=== PATIENT | female | born 1955 | race Two or more races ===

== ENCOUNTER 2021-12-21 08:48 | Inpatient (IN) | payer MEDICARE, OTHER ==
[~2021-12-21] VITALS: Ht 162.6 cm; Wt 72.1 kg
--- NOTE | 2021-12-21 09:00 | NUR ---
RECIVED PT 66 YRS FEMALE FROM SNF C/O PT PULL OUT GT NO REPLACEMENT PT awake fallow command respiration spont and easy gt heling no opening to reinserted abdomin soft none tende to touch
--- NOTE | 2021-12-21 09:10 | NUR ---
SEEN BY DR. NUÑEZ
--- NOTE | 2021-12-21 09:15 | NUR ---
INsertyed angelocathter fr # 20 on [address] ac blood drow and sent to lab
[2021-12-21] MEDS ORDERED: CHLO473M5 MM (09:16)
[2021-12-21] MEDS ORDERED: LEVE500T9 GT (09:16)
[2021-12-21] MEDS ORDERED: ATOR20TA GT (09:16)
[2021-12-21] MEDS ORDERED: ASPI-1169 GT (09:16)
[2021-12-21] MEDS ORDERED: LISI20TA30 GT (09:16)
[2021-12-21] MEDS ORDERED: INSU100V27 SQ (09:16)
[2021-12-21] MEDS ORDERED: POLY17PO4 GT (09:16)
[2021-12-21] MEDS ORDERED: MULT-447 GT (09:16)
[2021-12-21] MEDS ORDERED: ACET-868 GT (09:16)
[2021-12-21] MEDS ORDERED: ENOX40DI SQ (09:16)
[2021-12-21] MEDS ORDERED: GLUC1KIT IM (09:16)
[2021-12-21] MEDS ORDERED: MINE3.5O4 EACHEYE (09:16)
[2021-12-21] MEDS ORDERED: [UNRECOGNIZED DRUG - CODE] GT (09:16)
--- NOTE | 2021-12-21 09:30 | NUR ---
EPIC PAGED, AWAITING HOSPITALIST CALL BACK
--- NOTE | 2021-12-21 09:31 | NUR ---
COVID SWAB OBTAINED AND SENT TO LAB
[2021-12-21 09:38] LABS: BASOPHILS # (AUTO) 0.1 K/uL (0.0-0.2); BASOPHILS % (AUTO) 0.6 % (0.0-2.0); EOSINOPHILS % (AUTO) 1.7 % (0.0-6.0); HEMATOCRIT 31 % (33-45); HEMOGLOBIN 10.7 g/dL (11.5-14.8); LYMPHOCYTES # (AUTO) 2.3 K/uL (0.8-4.8); LYMPHOCYTES % (AUTO) 18.5 % (20.0-44.0); MEAN CORPUSCULAR HGB CONC 35 g/dl (31.0-36.0); MEAN CORPUSCULAR VOLUME 88 fL (82-100); MONOCYTES # (AUTO) 0.7 K/uL (0.1-1.30); MONOCYTES % (AUTO) 5.8 % (2.0-12.0); NEUTROPHILS # (AUTO) 9.3 K/uL (1.8-8.9); NEUTROPHILS % (AUTO) 73.4 % (43.0-81.0); PLATELET COUNT (AUTO) 458 K/uL (150-450); RED BLOOD CELL COUNT(AUTO) 3.52 MIL/uL (4.0-5.2); WHITE BLOOD COUNT (AUTO) 12.7 K/uL (4.3-11.0)
[2021-12-21 09:51] LABS: ALBUMIN 2.6 g/dL (3.4-5.0); BILIRUBIN,DIRECT 0.1 mg/dL (0.0-0.2); BILIRUBIN,TOTAL 0.2 mg/dL (0.2-1.0); CALCIUM, SERUM 10.2 mg/dL (8.5-10.1); CREATININE 0.9 mg/dL (0.6-1.3); POTASSIUM 4.7 mmol/L (3.5-5.1); TOTAL PROTEIN, SERUM 8.2 g/dL (6.4-8.2)
[2021-12-21] MEDS ORDERED: IV NS 0.9% 1,000 ML BAG IV ONE (10:30)
--- NOTE | 2021-12-21 10:49 | NUR ---
MRSA SWAP SENT TO LAB
[2021-12-21] MEDS ORDERED: PIPERACILLIN /TAZOBACTAM 3.375 G VIAL IV ONE (10:56)
[2021-12-21] MEDS ORDERED: PIPERACILLIN /TAZOBACTAM 3.375 G in IV D5W 50 ML IV ONE (11:00)
--- NOTE | 2021-12-21 11:22 | NUR ---
MS 310-2
--- NOTE | 2021-12-21 11:44 | NUR ---
Report given to MENDY Gore for ZI.
[2021-12-21] MEDS ORDERED: Z GUARD REMEDY 4 OZ OINT TP PRN (12:30)
[2021-12-21] MEDS ORDERED: ONDANSETRON HCL/PF 4 MG/2 ML VIAL IVP PRN (12:30)
[2021-12-21] MEDS ORDERED: MAGNESIUM HYDROXIDE 30 ML UDC PO PRN (12:30)
[2021-12-21] MEDS ORDERED: ACETAMINOPHEN 325 MG TABLET PO PRN (12:30)
[2021-12-21] MEDS ORDERED: MAG HYDROX/AL HYDROX/SIMETH 30 ML UDC PO PRN (12:30)
--- NOTE | 2021-12-21 12:50 | NUR ---
RN Receiving report. PT AOx3, able to express her own concerns. Patient on room air, no signs of distress, states she is comfortable. Patient able to use call light. Vitals signs stable. All safety precautions taken, call light and table within reach and bed at lowest position. Will continue to monitor and administer medications throughout shift.
[2021-12-21 16:00] VITALS: BP 142/87
[2021-12-21] MEDS: IV D5/0.45 NACL 1,000 ML IV PRN (17:40)
--- NOTE | 2021-12-21 19:24 | NUR ---
RN Closing Notes Pt confused, but able to communicate basic needs. Patient remained safe throughout shift, call light and table within reach. Bed at lowest position. Administered hydration as prescribed, IV inserted on right arm, 20g, no signs of infiltration, no pain reported. Patient had a bowel movement during sift. Patient made aware of need to remain NPO for Gtube placement. No incidents to report, will endorse to next nurse.
--- NOTE | 2021-12-21 19:35 | NUR ---
MS RN OPENING NOTE PATIENT IN BED, ALERT/ORIENTED X 1. PT STABLE ON RA, NO S/S OF DISTRESS OR SOB NOTED, BREATHING EVEN AND UNLABORED. PATIENT NPO. RIGHT ARM #20G INTACT AND INFUSING D5NS @ 75 ML/HR. SAFETY MEASURES IN PLACE: CALL LIGHT WITHIN REACH, SIDE RAILS UP X 3, BED LOCKED IN LOWEST POSITION, BED ALARM ON. WILL CONTINUE TO MONITOR PATIENT
[2021-12-21 20:00] VITALS: BP 152/101
[2021-12-21 21:30] VITALS: BP 146/95
--- NOTE | 2021-12-21 23:14 | NUR ---
MS RN NOTE PATIENT NOTED WITH DRY, CHAPPED, AND BLEEDING LIPS, PATIENT POSSIBLY BIT LIP. WOUND PHOTO TAKEN AND PLACED IN CHART
[2021-12-22 06:37] LABS: CALCIUM, SERUM 9.8 mg/dL (8.5-10.1); CREATININE 0.8 mg/dL (0.6-1.3); MAGNESIUM 1.8 mg/dL (1.8-2.4); PHOSPHORUS 3.5 mg/dL (2.5-4.9)
[2021-12-22] MEDS: BLOOD SUGAR DIAGNOSTIC 1 EACH STRIP IN SCH ×4 (06:43→21:31)
[2021-12-22] MEDS: IV D5/0.45 NACL 1,000 ML IV PRN ×2 (06:43→21:32)
--- NOTE | 2021-12-22 06:47 | NUR ---
MS RN CLOSING NOTE PATIENT IN BED, ALERT/ORIENTED X 1, CONFUSED. PT STABLE ON RA, NO S/S OF DISTRESS OR SOB NOTED, BREATHING EVEN AND UNLABORED. PATIENT KEPT NPO. RIGHT FOREARM #20G INTACT AND INFUSING D5NS @ 75 ML/HR, RIGHT AC #20G INTACT AND SALINE LOCKED. PATIENT TURNED Q2H, HYGIENE CARE PROVIDED. SAFETY MEASURES IN PLACE: CALL LIGHT WITHIN REACH, SIDE RAILS UP X 3, BED LOCKED IN LOWEST POSITION, BED ALARM ON. WILL ENDORSE TO DAY SHIFT NURSE FOR CONTINUITY OF CARE
--- NOTE | 2021-12-22 07:20 | NUR ---
MS RN OPENING NOTES RECEIVED PATIENT AWAKE IN BED IN NO ACUTE SIGNS OF DISTRESS. HOB ELEVATED. A/O X1. VERBALLY RESPONSIVE BUT CONFUSED. NO S/SX OF PAIN OR DISCOMFORTS NOTED AT THIS TIME. ON ROOM AIR, BREATHING EVEN AND UNLABORED. PATIENT KEPT NPO. RIGHT FOREARM #20G INTACT AND INFUSING D5 1/2 NS @ 75 ML/HR, RIGHT AC #20G INTACT AND SALINE LOCKED. SAFETY MEASURES IN PLACE: CALL LIGHT WITHIN REACH, SIDE RAILS UP X 3, BED LOCKED IN LOWEST POSITION, BED ALARM ON. WILL CONTINUE TO MONITOR PT ACCORDINGLY THROUGHOUT SHIFT.
[2021-12-22 08:00] VITALS: BP 160/95
--- NOTE | 2021-12-22 08:03 | NUR ---
WOUND CARE CONSULT: PT PRESENTS WITH FRAGILE SCARRING TO BILATERAL BUTTOCKS AND SOME LONG CURLING TOENAILS, PRESENT ON ADMISSION. NO G TUBE STOMA NOTED. RECOMMEND PODIATRY CONSULT. RECOMMENDATIONS MADE FOR SKIN PROTECTION. DISCUSSED WITH NURSING STAFF. MD IN AGREEMENT WITH PLAN OF CARE.
[2021-12-22 08:49] LABS: BASOPHILS # (AUTO) 0.1 K/uL (0.0-0.2); BASOPHILS % (AUTO) 0.5 % (0.0-2.0); EOSINOPHILS % (AUTO) 2.2 % (0.0-6.0); HEMATOCRIT 31 % (33-45); HEMOGLOBIN 10.1 g/dL (11.5-14.8); LYMPHOCYTES # (AUTO) 1.8 K/uL (0.8-4.8); MEAN CORPUSCULAR HGB CONC 32 g/dl (31.0-36.0); MEAN CORPUSCULAR VOLUME 88 fL (82-100); MONOCYTES # (AUTO) 0.6 K/uL (0.1-1.30); NEUTROPHILS # (AUTO) 7.2 K/uL (1.8-8.9); NEUTROPHILS % (AUTO) 73.3 % (43.0-81.0); PLATELET COUNT (AUTO) 390 K/uL (150-450); RED BLOOD CELL COUNT(AUTO) 3.56 MIL/uL (4.0-5.2); WHITE BLOOD COUNT (AUTO) 9.8 K/uL (4.3-11.0)
--- NOTE | 2021-12-22 15:52 | NUR ---
RN NOTES DR MENDOZA CAME AND TRIMED PT'S TOE NAILS.
[2021-12-22 16:00] VITALS: BP 148/99
--- NOTE | 2021-12-22 18:49 | NUR ---
MS RN CLOSING NOTES PATIENT ASLEEP IN BED AT THIS TIME, EASILY AWAKENS. HOB ELEVATED. A/O X1. VERBALLY RESPONSIVE BUT CONFUSED. ON ROOM AIR, BREATHING EVEN AND UNLABORED, NO SOB NOTED DURING SHIFT. PATIENT MAINTAINED ON NPO PER MD ORDER. RIGHT FOREARM #20G IV ACCESS INTACT AND INFUSING D5 1/2 NS @ 75 ML/HR, RIGHT AC #20G INTACT AND SALINE LOCKED. PT TURNED AND REPOSITIONED Q 2HRS AND PRN. ALL NEEDS AND CARE PROVIDED WELL. SAFETY MEASURES KEPT IN PLACE: CALL LIGHT WITHIN REACH, SIDE RAILS UP X 3, BED LOCKED IN LOWEST POSITION, BED ALARM ON. WILL ENDORSE ZI TO GILL TENDER NURSE.
--- NOTE | 2021-12-22 19:46 | NUR ---
MS RN OPENING NOTES PATIENT RECEIVED RESTING IN BED COMFORTABLY; A/OX1-2, BREATHING EVEN AND UNLABORED; NO SOB NOTED; TOLERATING ROOM AIR WELL; R AC #20G INTACT AND PATENT, FLUSHING WELL; NO S/S OF REDNESS OR INFILTRATION NOTED; PER AM SHIFT ONCE GTUBE IS PLACED, CAN START ON JEVITY 1.2 @70ML/HR; NO SCHEDULE YET FOR PLACEMENT; PATIENT NPO; CHARGE NURSES AWARE; SAFETY PRECAUTIONS IMPLEMENTED; BED LOCKED IN LOW POSITION; SIDE RAILSX2; CALL LIGHT WITHIN REACH; WILL CONT PLAN OF CARE
[2021-12-22 20:00] VITALS: BP 166/96
[2021-12-22 20:41] VITALS: BP 166/96
[2021-12-23] MEDS: BLOOD SUGAR DIAGNOSTIC 1 EACH STRIP IN SCH ×4 (06:35→22:00)
--- NOTE | 2021-12-23 06:40 | NUR ---
MS RN CLOSING NOTES PATIENT RESTING IN BED COMFORTABLY; A/OX1-2, BREATHING EVEN AND UNLABORED; NO SOB NOTED; TOLERATING ROOM AIR WELL; R AC #20G INTACT AND PATENT, FLUSHING WELL; NO S/S OF REDNESS OR INFILTRATION NOTED; ONCE GTUBE IS PLACED, CAN START ON JEVITY 1.2 @70ML/HR; NO SCHEDULE YET FOR PLACEMENT; PATIENT TO BE KEPT NPO; WILL INFORM DAY SHIFT OF PLAN; ALL NEEDS RENDERED; SAFETY PRECAUTIONS IMPLEMENTED; BED LOCKED IN LOW POSITION; SIDE RAILSX2; CALL LIGHT WITHIN REACH; WILL CONT PLAN OF CARE
--- NOTE | 2021-12-23 07:30 | NUR ---
MS RN OPENING NOTES PATIENT RECEIVED RESTING IN BED COMFORTABLY; A/OX1-2, BREATHING EVEN AND UNLABORED; NO SOB NOTED. TOLERATING ROOM AIR WELL. R AC #20G INTACT AND PATENT, FLUSHING WELL; NO S/S OF REDNESS OR INFILTRATION NOTED . PATIENT NPO; WAITING FOR GTUBE PLACEMENT. SAFETY PRECAUTIONS IMPLEMENTED; BED LOCKED IN LOW POSITION; SIDE RAILSX2; CALL LIGHT WITHIN REACH; WILL CONT PLAN OF CARE
[2021-12-23 08:00] VITALS: BP 128/72
[2021-12-23 16:35] VITALS: BP 123/80
--- NOTE | 2021-12-23 19:30 | NUR ---
RN NOTES PATIENT LEFT UNIT FOR SURGERY AT 1912 PM. ALL CONSENTS WAS SIGNED FOR SURGERY.
[2021-12-23 22:00] VITALS: BP 161/92
--- NOTE | 2021-12-23 22:29 | NUR ---
RN NOTES PT BACK FROM OR S/P PEG TUBE PLACEMENT. PT AWAKE IN NO APPARENT DISTRESS ON ROOM AIR STATING 96% PT SBP 161/92 HR 105. PT IN NO VISIBLE DISTRESS OR PAIN AT THIS TIME. PEG SIDE CHECKED WITH OR NURSE SITE IS CLEAN INTACT. WILL REVIEW CHART AND CARRY OUT ALL ORDERS.
[2021-12-24] MEDS ORDERED: JEVITY 1.2 CAL 1,000 ML BOTTLE PEG PRN ×2 (00:30→06:00)
--- NOTE | 2021-12-24 06:43 | NUR ---
MS RN CLOSING NOTES PATIENT RECEIVED RESTING IN BED COMFORTABLY; A/OX1, BREATHING EVEN AND UNLABORED; NO SOB NOTED. TOLERATING ROOM AIR WELL. PT RUINING D5 1/2 NS @75 ML/HR TOLERATING WELL. NO S/S OF REDNESS OR INFILTRATION NOTED.PATIENT S/P PEG PLACEMENT LAST NIGHT PT STARTED ON JEVITY 1.2 @35ML/HR THIS MORNING. SAFETY PRECAUTIONS IMPLEMENTED; BED LOCKED IN LOW POSITION; SIDE RAILSX2; CALL LIGHT WITHIN REACH; BED ALARM ON.WILL ENDORSE TO DAY SHIFT NURSE FOR ZI.
[2021-12-24] MEDS: BLOOD SUGAR DIAGNOSTIC 1 EACH STRIP IN SCH ×2 (07:33→12:12)
[2021-12-24 08:00] VITALS: BP_SYST 113; BP_SYST 144; BP_DIAS 45; BP_DIAS 91
--- NOTE | 2021-12-24 08:03 | NUR ---
RN OPENING NOTE PATIENT RECEIVED IN BED, AO X 1, ABLE TO RESPONDS PHYSICAL STIMULI. IN NO ACUTE DISTRESS NOTED. RESPIRATORY EVEN AND UNLABORED ON ROOM AIR. SKIN IS WARM TO TOUCH, KEEP CLEAN/DRY. PATIENT RESUME TUBE FEEDING AND NO RESIDUAL OBSERVED. KEPT ELEVATED HOB FOR ENSURE AIRWAY AND ASPIRATION PRECAUTION, ALSO LOWEST POSITION OF THE BED, S/R UP X 2, BED ALARM IS ON AT ALL THE TIMES. ALL SAFETY PRECAUTION APPLIED. CALL LIGHT WITHIN REACH, WILL CONTINUE TO MONITOR.
--- NOTE | 2021-12-24 15:13 | NUR ---
PATIENT DISCHARGE TO [facility] AND REPORT ROCAEL/STOKER ERECTOR AND SERVICER, INCLUDE INCREASE G TUBE FORMULA/JAVITY 1.2 AFTER 24 HOURS, 60 ML/HR IS THE GOAL, AND PATIENT IS TOLERATED. ALSO INFORMED HEATING OPERATORS ENGINEER TIME.
== END 2021-12-24 16:10 | DRG 393 ==
LOC: ER 08:57 → MED 11:35
PROVIDERS: ADMIT Internal Medicine; ATTEND Internal Medicine
PROC: 0DH63UZ Insertion of Feeding Device into Stomach, Percutaneous Approach (ICD-10-PCS; principal; 2021-12-23)
DX: K94.23 Gastrostomy malfunction (principal); E43 Unspecified severe protein-calorie malnutrition; G93.41 Metabolic encephalopathy; N17.0 Acute kidney failure with tubular necrosis; Z20.822 Contact with and (suspected) exposure to COVID-19; E11.9 Type 2 diabetes mellitus without complications; Z86.73 Personal history of transient ischemic attack (TIA), and cerebral infarction without residual deficits; I10 Essential (primary) hypertension; G40.909 Epilepsy, unspecified, not intractable, without status epilepticus; Z79.4 Long term (current) use of insulin; Z79.82 Long term (current) use of aspirin; Z79.01 Long term (current) use of anticoagulants; Z79.899 Other long term (current) drug therapy; Y84.8 Other medical procedures as the cause of abnormal reaction of the patient, or of later complication, without mention of misadventure at the time of the procedure; Y92.129 Unspecified place in nursing home as the place of occurrence of the external cause; E88.09 Other disorders of plasma-protein metabolism, not elsewhere classified; K66.8 Other specified disorders of peritoneum; D63.8 Anemia in other chronic diseases classified elsewhere; F03.90 Unspecified dementia, unspecified severity, without behavioral disturbance, psychotic disturbance, mood disturbance, and anxiety; M20.41 Other hammer toe(s) (acquired), right foot; M20.42 Other hammer toe(s) (acquired), left foot; L60.3 Nail dystrophy
CPT/HCPCS: 36415; 43246; 71045-TC; 80048-TC; 80061-TC; 80076-TC; 82962-TC; 83735-TC; 84100-TC; 85025-TC; 85730-TC; 87081-TC; C9803; G0378; J0690; J2543; J2704; J3490; J7030; J7042; J7060

== ENCOUNTER 2022-01-15 17:49 | Inpatient (IN) | payer MEDICARE, OTHER ==
[~2022-01-15] VITALS: Ht 170.2 cm; Wt 72.6 kg
[~2022-01-15 17:49] MED LIST: ACET-868 GT; ASPI-1169 GT; ATOR20TA GT; CHLO473M5 MM; ENOX40DI SQ; GLUC1KIT IM; INSU100V27 SQ; LEVE500T9 GT; LISI20TA30 GT; MINE3.5O4 EACHEYE; MULT-447 GT; POLY17PO4 GT; [UNRECOGNIZED DRUG - CODE] GT
--- NOTE | 2022-01-15 17:55 | NUR ---
RECEIVED PT 66 YRS FEMALE TRANFER [facility] SNF for aloc and elec=-valed temp open and draining wound in abdominale wall hr 142b/min
--- NOTE | 2022-01-15 18:19 | NUR ---
COVID SWAB DONE AND SENT TO LAB
[2022-01-15] MEDS ORDERED: ACETAMINOPHEN 650 MG/SUPP.RECT RC ONE ×2 (18:24→18:30)
[2022-01-15] MEDS ORDERED: CEFEPIME 1 GM VIAL ONE (18:24)
[2022-01-15] MEDS ORDERED: VANCOMYCIN 1 GM VIAL ONE (18:26)
[2022-01-15] MEDS ORDERED: VANCOMYCIN 1 GM in IV D5W 250 ML IV ONE (18:30)
[2022-01-15] MEDS ORDERED: CEFEPIME 1 GM in IV D5W 50 ML IV ONE (18:30)
--- NOTE | 2022-01-15 18:31 | NUR ---
MOVE SHEET SUBMITTED.
[2022-01-15] MEDS ORDERED: CT SWABBABLE VALVE TRANS SET 1 EA INFUS.SET MC ONE ×2 (18:55→19:04)
[2022-01-15] MEDS ORDERED: IV NS 0.9% 250 ML IV ONE ×2 (18:55→19:05)
[2022-01-15] MEDS ORDERED: IOHEXOL-300 100 ML VIAL IV ONE ×2 (18:55→19:04)
[2022-01-15] MEDS ORDERED: IV NS 0.9% 2,000 ML IV ONE (19:00)
[2022-01-15 19:01] LABS: ALANINE AMINOTRANSFERASE 32 U/L (12-78); ALKALINE PHOSPHATASE 119 U/L (46-116); ASPARTATE AMINOTRANSFERASE 34 U/L (15-37); BILIRUBIN,DIRECT 0.1 mg/dL (0.0-0.2); BILIRUBIN,TOTAL 0.3 mg/dL (0.2-1.0); CALCIUM, SERUM 9.3 mg/dL (8.5-10.1); CARBON DIOXIDE 23 mmol/L (21-32); CHLORIDE 101 mmol/L (98-107); CREATININE 0.7 mg/dL (0.6-1.3); GLUCOSE 116 mg/dL (74-106); POTASSIUM 4.7 mmol/L (3.5-5.1); SODIUM SERUM 132 mmol/L (136-145); TOTAL PROTEIN, SERUM 7.3 g/dL (6.4-8.2); UREA NITROGEN, BLOOD 20 mg/dL (7-18)
--- NOTE | 2022-01-15 19:15 | NUR ---
ua sent to lab
--- NOTE | 2022-01-15 19:30 | NUR ---
HAND OFF ADAM BROOKE
[2022-01-15 19:41] LABS: BILIRUBIN,URINE NEGATIVE (NEGATIVE); COLOR,URINE YELLOW (YELLOW); LEUKOCYTE ESTERASE ,URINE TRACE (NEGATIVE); NITRITE, URINE NEGATIVE (NEGATIVE); PH,URINE 5.5 (5.0-8.0); PROTEIN,URINE NEGATIVE (NEGATIVE); UGLUCOSE NEGATIVE (NEGATIVE); UROBILINOGEN,URINE 0.2 EU/dL (0.2)
--- NOTE | 2022-01-15 19:45 | NUR ---
RECEIVED REPORT FROM RUDY BROOKE
--- NOTE | 2022-01-15 19:50 | NUR ---
PT IS AAOX0, RR EVEN AND NON LABORED. WOUND NOTED ON UPPER ABDOMEN AREA, WOUND IS PACKED, KEPT CLEAN AND COVERED. CONNECTED TO MONITOR. PICC LINE NOTED RUPPER ARM. BAUMANN IN PLACE. WILL CONTINUE TO MONITOR.
[2022-01-15 19:55] LABS: BASOPHILS % (AUTO) 0.3 % (0.0-2.0); EOSINOPHILS % (AUTO) 0.4 % (0.0-6.0); HEMATOCRIT 30 % (33-45); HEMOGLOBIN 9.5 g/dL (11.5-14.8); LYMPHOCYTES # (AUTO) 1.2 K/uL (0.8-4.8); LYMPHOCYTES % (AUTO) 9.5 % (20.0-44.0); MEAN CORPUSCULAR HGB CONC 32 g/dl (31.0-36.0); MEAN CORPUSCULAR VOLUME 82 fL (82-100); MONOCYTES # (AUTO) 0.8 K/uL (0.1-1.30); MONOCYTES % (AUTO) 6.3 % (2.0-12.0); NEUTROPHILS # (AUTO) 10.5 K/uL (1.8-8.9); NEUTROPHILS % (AUTO) 83.5 % (43.0-81.0); PLATELET COUNT (AUTO) 289 K/uL (150-450); RED BLOOD CELL COUNT(AUTO) 3.62 MIL/uL (4.0-5.2); WHITE BLOOD COUNT (AUTO) 12.6 K/uL (4.3-11.0)
[2022-01-15 20:25] LABS: BACTERIA,URINE 1+ /HPF (None Seen)
--- NOTE | 2022-01-15 21:38 | NUR ---
PANEL CALL PAGED
[2022-01-15] MEDS ORDERED: Z GUARD REMEDY 4 OZ OINT TP PRN (22:00)
[2022-01-15] MEDS ORDERED: DEXTROSE 50%-WATER 50 ML DISP.SYRIN IV PRN (22:00)
[2022-01-15] MEDS ORDERED: JEVITY 1.2 CAL 1,000 ML BOTTLE GT PRN (22:00)
[2022-01-15] MEDS ORDERED: ACETAMINOPHEN 325 MG TABLET PO PRN (22:00)
[2022-01-15] MEDS ORDERED: ONDANSETRON HCL/PF 4 MG/2 ML VIAL IVP PRN (22:00)
--- NOTE | 2022-01-15 22:30 | NUR ---
RN NOTES RECEIVED ER ADMISSION REPORT FROM MENDY HATFIELD. ALL PERTINENT ADMISSION INFO REGARDING PT NOTED. WILL WAIT FOR PT TO BE TRANSFERRED TO UNIT AND ADDRESS NEEDS ACCORDINGLY. REFINER OPERATOR MADE AWARE.
--- NOTE | 2022-01-15 22:34 | NUR ---
REPORT GIVEN TO MENDY ORTIZ
--- NOTE | 2022-01-15 23:15 | NUR ---
RN NOTES RECEIVED PT FROM ER VIA [facility] ACCOMPANIED BY 2 ER STAFF AND TRANSFERRED TO BED VIA 2-3 PERSON ASSIST. PT IS A/OX0; NON VERBAL; PT ON ROOM AIR WITH RESPIRATIONS EVEN AND UNLABORED. COMPREHENSIVE PHYSICAL ASSESSMENT AND PATIENT CARE DONE. CALL LIGHT WITHIN REACH, SAFETY MEASURES , WILL CONTINUE MONITOR AND ASSESS THROUGHOUT THE SHIFT. WILL CARRY OUT MD ORDERS ACCORDINGLY. FLEET MANAGER MADE AWARE.
--- NOTE | 2022-01-15 23:20 | NUR ---
PATIENT TRANSFERRRED TO 112-1 VIA ACLS
[2022-01-15] MEDS: IV NS 0.9% 1,000 ML IV SCH (23:49)
[2022-01-16] VITALS: BP 127/91
[2022-01-16] MEDS: BLOOD SUGAR DIAGNOSTIC 1 EACH STRIP IN SCH ×5 (00:09→18:51)
[2022-01-16] MEDS: INSULIN REGULAR, HUMAN 100 UNIT/ML 3 ML VIAL SQ PRN (00:10)
[2022-01-16] MEDS ORDERED: CEFEPIME 1 GM VIAL ONE (00:19)
[2022-01-16] MEDS: CEFEPIME 2 GM in IV D5W 100 ML IV SCH ×4 (00:46→22:08)
[2022-01-16 04:00] VITALS: BP 109/63
--- NOTE | 2022-01-16 04:00 | NUR ---
RN NOTES PATIENT REMAINED TO BE IN NO SIGNS OF ACUTE RESPIRATORY DISTRESS , SAFE ENVIRONMENT MAINTAINED FOR PT. AM PATIENT CARE ASSISTANCE RENDERED. WILL CONTINUE TO MONITOR AND REASSESS FOR ANY CHANGES THROUGHOUT THE SHIFT.
--- NOTE | 2022-01-16 06:39 | NUR ---
RN CLOSING NOTE: PATIENT REMAINS IN ROOM IN NO SIGNS OF RESPIRATORY DISTRESS, PATIENT STILL ON ROOM AIR ;TOLERATING WELL SATURATING @ 95% SP02 AT THIS TIME. ST ON MONITOR. SAFETY MEASURES IMPLEMENTED, BED IN LOWEST POSITION, LOCKED, SIDE RAILS UP, CALL LIGHT WITHIN REACH. ALL NEEDS AND ORDERS ADDRESSED DURING THE SHIFT. IV ACCESS MAINTAINED INTACT, SECURED AND FLUSHING WELL. IV FLUIDS RUNNING ORDERED. ALL DUE MEDS GIVEN ORDERED & SCHEDULED ; PATIENT TOLERATED WELL. FOR WOUND CONSULT. PATIENT KEPT CLEAN AND COMFORTABLE WITHIN THE SHIFT. PATIENT ENDORSED TO INCOMING SHIFT RN WITH STABLE VITAL SIGN AND FOR CONTINUITY OF CARE. Addendum: 01/16/22 at 0650 by YOANA KNIGHT RN AWAITING FOR CEFEPIME/MAXIPIME 2GM (SCHEDULED FOR 629) FROM PHARMACY; NOT AVAILABLE STOCK MED PER NSG SUP. PHARMACY AWARE AND WILL SEND BACK TO UNIT. WILL ENDORSE TO AM SHIFT TO FOLLOW THROUGH. SUGAR CANE PLANTING EQUIPMENT OPERATOR MADE AWARE.
[2022-01-16 07:46] LABS: BASOPHILS % (AUTO) 0.4 % (0.0-2.0); EOSINOPHILS % (AUTO) 0.8 % (0.0-6.0); HEMATOCRIT 25 % (33-45); HEMOGLOBIN 7.9 g/dL (11.5-14.8); LYMPHOCYTES % (AUTO) 15.9 % (20.0-44.0); MEAN CORPUSCULAR HGB CONC 32 g/dl (31.0-36.0); MEAN CORPUSCULAR VOLUME 82 fL (82-100); MONOCYTES % (AUTO) 7.7 % (2.0-12.0); NEUTROPHILS # (AUTO) 9.4 K/uL (1.8-8.9); NEUTROPHILS % (AUTO) 75.2 % (43.0-81.0); PLATELET COUNT (AUTO) 253 K/uL (150-450); WHITE BLOOD COUNT (AUTO) 12.4 K/uL (4.3-11.0)
[2022-01-16 08:00] VITALS: BP 121/77
[2022-01-16 08:35] LABS: BILIRUBIN,TOTAL 0.3 mg/dL (0.2-1.0); CALCIUM, SERUM 9.1 mg/dL (8.5-10.1); CREATININE 0.6 mg/dL (0.6-1.3); MAGNESIUM 1.6 mg/dL (1.8-2.4); POTASSIUM 3.9 mmol/L (3.5-5.1); TOTAL PROTEIN, SERUM 6.2 g/dL (6.4-8.2)
[2022-01-16] MEDS: POLYETHYLENE GLYCOL 3350 17 GM POWD.PACK GT SCH (09:00)
[2022-01-16] MEDS: ASPIRIN 81 MG TAB.CHEW GT SCH (09:00)
[2022-01-16] MEDS: ATORVASTATIN 10 MG TABLET GT SCH (09:00)
[2022-01-16] MEDS: MULTIVIT W/MINERALS 1 TAB TABLET GT SCH (09:00)
[2022-01-16] MEDS: LEVETIRACETAM (250 MG) 250 MG TABLET PO SCH ×2 (09:00→20:18)
[2022-01-16] MEDS: LISINOPRIL (20MG) 20 MG TABLET GT SCH (09:00)
--- NOTE | 2022-01-16 09:00 | NUR ---
RN NOTE PATIENT IS NPO WITHOUT GTUBE. ALL PO MEDICATION HELD UNTIL PATIENT GETS A PLEG TUBE. DR EDUARDO NOTIFIED BY CHARGE NURSE SOON
[2022-01-16] MEDS: CHLORHEXIDINE GLUCONATE 15 ML UDC MM SCH ×2 (09:08→17:30)
[2022-01-16] MEDS: VANCOMYCIN 1 GM in IV D5W 250ml IV SCH ×2 (09:10→20:14)
[2022-01-16] MEDS: ENOXAPARIN SODIUM 40 MG/0.4 ML DISP.SYRIN SQ SCH (09:10)
[2022-01-16] MEDS: MORPHINE SULFATE INJ 2 MG/ML DISP.SYRIN IV PRN (09:15)
[2022-01-16 09:17] LABS: ALBUMIN 1.7 g/dL (3.4-5.0)
[2022-01-16] MEDS: IV NS 0.9% 1,000 ML IV SCH (11:23)
[2022-01-16 12:00] VITALS: BP 128/74
[2022-01-16] MEDS: Magnesium 1GM/D5W 100ML PREMIX 100 ML IV SCH ×2 (12:18→13:01)
[2022-01-16] MEDS ORDERED: TPN/PPN PER PHARMACY XX PRN (12:30)
[2022-01-16] MEDS ORDERED: TPN BAG #1 IV SCH ×4 (14:00)
[2022-01-16] MEDS ORDERED: DEXTROSE 50%-WATER 50 ML DISP.SYRIN IV PRN (15:30)
[2022-01-16 16:00] VITALS: BP 105/58
--- NOTE | 2022-01-16 19:00 | NUR ---
INK JET OPERATOR NOTE PATIENT DISCHARGED AT [address] [facility]. PATIENT STATUS WAS STABLE A/O X4. ALL IV SITES WERE CLEANED AND REMOVED. PATIENT REFUSED TO LET ME AND OMAR TO TAKE MORE PICTURES OF HIS WOUND. WE WERE ABLE TO TAKE ONLY ONE PICTURE FROM HIS SACRAL WOUND. I GAVE REPORT TO ALAN AT [facility].
--- NOTE | 2022-01-16 19:00 | NUR ---
RN CLOSING NOTE: PATIENT REMAINS IN ROOM IN NO SIGNS OF RESPIRATORY DISTRESS, PATIENT ON ROOM AIR ;TOLERATING WELL SATURATING @ 100% SP02 AT THIS TIME. ST ON MONITOR. SAFETY MEASURES IMPLEMENTED, BED IN LOWEST POSITION, LOCKED, SIDE RAILS UP, CALL LIGHT WITHIN REACH. ALL NEEDS AND ORDERS ADDRESSED DURING THE SHIFT. IV ACCESS MAINTAINED INTACT, SECURED AND FLUSHING WELL. IV FLUIDS RUNNING ORDERED. TPN AT RATE OF 40 ML /HOUR STARTED AT 1400 FOR THE NXT 25 HOURS WITHE SAME RATE. ALL IV DUE MEDS GIVEN ORDERED & SCHEDULED ; PATIENT TOLERATED WELL. FOR WOUND CONSULT. PATIENT KEPT CLEAN AND COMFORTABLE AND ENDORSED TO THE ROVING COURT REPORTER NURSE TO CONTINUE OF CARE.
--- NOTE | 2022-01-16 19:15 | NUR ---
RN NOTE PLEASE DISCARD THE PREVIOUS NOTE " PACKER NOTE" WAS DOCUMENTED FOR A WRONG PATIENT INSTEAD OF PATIENT ROOM 120 YOANA GUEVARA.
--- NOTE | 2022-01-16 19:30 | NUR ---
RN NOTES RECEIVED PT FOR CONTINUITY OF CARE. PATIENT A/OX0; OBTUNDED IN NO S/SX OF ACUTE DISTRESS AT THIS TIME; CURRENTLY ON ROOM AIR; WITH 02 SAT OF 99% AT THIS TIME. WITH IV ACCESS ON R UA PICC LINE PATENT, INTACT AND FLUSHING WELL. WITH RUNNING IV FLUID OF NS@75CC/HR AND TPN @40MLS/HR.ON NPO. WILL ENSURE SAFETY MEASURES WITHIN THE SHIFT. PATIENT BED ALARM IS ON. HEAD OF BED ELEVATED. BED IS LOCKED, IN LOWEST POSITION AND SIDE RAILS UP. CALL LIGHT WITHIN REACH OF THE PATIENT. WILL CONTINUE TO MONITOR AND REASSESS FOR ANY CHANGES AND WILL CARRY OUT ANY ONGOING AND ACTIVE MD ORDER.
[2022-01-16 20:00] VITALS: BP 137/83
[2022-01-17] VITALS: BP 115/78
[2022-01-17] MEDS: BLOOD SUGAR DIAGNOSTIC 1 EACH STRIP IN SCH ×5 (00:04→23:41)
[2022-01-17] MEDS: INSULIN REGULAR, HUMAN 100 UNIT/ML 3 ML VIAL SQ PRN ×5 (00:05→23:42)
[2022-01-17 04:00] VITALS: BP 139/83
--- NOTE | 2022-01-17 04:00 | NUR ---
RN NOTES PATIENT REMAINED TO BE IN NO SIGNS OF ACUTE RESPIRATORY DISTRESS , SAFE ENVIRONMENT MAINTAINED FOR PT. AM PATIENT CARE RENDERED. WILL CONTINUE TO MONITOR AND REASSESS FOR ANY CHANGES THROUGHOUT THE SHIFT.
[2022-01-17] MEDS: CEFEPIME 2 GM in IV D5W 100 ML IV SCH ×3 (06:23→22:54)
--- NOTE | 2022-01-17 06:31 | NUR ---
RN CLOSING NOTE: PATIENT REMAINS IN ROOM IN NO SIGNS OF RESPIRATORY DISTRESS, PATIENT STILL ON ROOM AIR ;TOLERATING WELL SATURATING @ >95% SP02 AT THIS TIME. ST ON MONITOR. SAFETY MEASURES IMPLEMENTED, BED IN LOWEST POSITION, LOCKED, SIDE RAILS UP, CALL LIGHT WITHIN REACH. ALL NEEDS AND ORDERS ADDRESSED DURING THE SHIFT. IV ACCESS MAINTAINED INTACT, SECURED AND FLUSHING WELL. TPN RUNNING ORDERED. ALL DUE MEDS GIVEN ORDERED & SCHEDULED ; PATIENT TOLERATED WELL. PATIENT KEPT CLEAN AND COMFORTABLE WITHIN THE SHIFT. PATIENT ENDORSED TO INCOMING SHIFT RN WITH STABLE VITAL SIGN AND FOR CONTINUITY OF CARE.
[2022-01-17 08:00] VITALS: BP 150/89
[2022-01-17] MEDS: LISINOPRIL (20MG) 20 MG TABLET GT SCH (09:00)
[2022-01-17] MEDS: ATORVASTATIN 10 MG TABLET GT SCH (09:00)
[2022-01-17] MEDS: ASPIRIN 81 MG TAB.CHEW GT SCH (09:00)
[2022-01-17] MEDS: MULTIVIT W/MINERALS 1 TAB TABLET GT SCH (09:00)
[2022-01-17] MEDS: LEVETIRACETAM (250 MG) 250 MG TABLET PO SCH (09:00)
[2022-01-17] MEDS: POLYETHYLENE GLYCOL 3350 17 GM POWD.PACK GT SCH (09:00)
[2022-01-17 09:46] LABS: BASOPHILS % (AUTO) 0.7 % (0.0-2.0); EOSINOPHILS % (AUTO) 2.3 % (0.0-6.0); HEMATOCRIT 26 % (33-45); HEMOGLOBIN 8.4 g/dL (11.5-14.8); LYMPHOCYTES # (AUTO) 1.9 K/uL (0.8-4.8); LYMPHOCYTES % (AUTO) 26.4 % (20.0-44.0); MEAN CORPUSCULAR HGB CONC 32 g/dl (31.0-36.0); MEAN CORPUSCULAR VOLUME 81 fL (82-100); MONOCYTES # (AUTO) 0.7 K/uL (0.1-1.30); MONOCYTES % (AUTO) 10.3 % (2.0-12.0); NEUTROPHILS # (AUTO) 4.3 K/uL (1.8-8.9); NEUTROPHILS % (AUTO) 60.3 % (43.0-81.0); PLATELET COUNT (AUTO) 262 K/uL (150-450); RED BLOOD CELL COUNT(AUTO) 3.22 MIL/uL (4.0-5.2); WHITE BLOOD COUNT (AUTO) 7.2 K/uL (4.3-11.0)
[2022-01-17] MEDS: CHLORHEXIDINE GLUCONATE 15 ML UDC MM SCH ×2 (09:57→17:33)
[2022-01-17] MEDS: ENOXAPARIN SODIUM 40 MG/0.4 ML DISP.SYRIN SQ SCH (10:01)
[2022-01-17 10:23] LABS: CALCIUM, SERUM 9.4 mg/dL (8.5-10.1); CREATININE 0.6 mg/dL (0.6-1.3); MAGNESIUM 1.6 mg/dL (1.8-2.4); POTASSIUM 3.4 mmol/L (3.5-5.1)
[2022-01-17] MEDS: VANCOMYCIN 1 GM in IV D5W 250ml IV SCH ×2 (10:41→20:42)
[2022-01-17 12:00] VITALS: BP 148/80
[2022-01-17] MEDS: Magnesium 1GM/D5W 100ML PREMIX 100 ML IV SCH ×2 (13:03→14:02)
[2022-01-17] MEDS ORDERED: TPN BAG #2 IV SCH ×4 (14:00)
[2022-01-17] MEDS: POTASSIUM CL. PREMIX PERIPHER. 50 ML IV SCH ×2 (14:02→15:05)
[2022-01-17 16:00] VITALS: BP 111/76
--- NOTE | 2022-01-17 19:32 | NUR ---
RN OPENING NOTES: RECEIVED PT IN BED, AWAKE, ALERT/ORIENTED X3-4 AND VERBALLY RESPONSIVE. CHADIAN SPEAKING ONLY. FAMILY MEMBERS IN BEDSIDE. ON ROOM AIR AND PT TOLERATED WELL. IV ACCESS ON SANDOR PICC INTACT AND PATENT. TPN RUNNING AT 60CC/HR. NO FACIAL GRIMACING NOTED. NO ACUTE DISTRESS. BAUMANN CATHETER IN PLACE. DRAINING BY GRAVITY. ALL SAFETY MEASURES IN PLACE. BED IN LOWEST POSITION AND LOCKED. SIDE RAILS UP X3, PLACE CALL LIGHT WITHIN REACH. WILL CONTINUE TO MONITOR. Addendum: 01/17/22 at 2232 by KATHY PATEL RN WRONG PT
--- NOTE | 2022-01-17 19:32 | NUR ---
RN OPENING NOTES: RECEIVED PT IN BED, AWAKE, ALERT/ORIENTED X0, AND RESPONSIVE TO PAINFUL STIMULI. ON ROOM AIR AND PT TOLERATED WELL. IV ACCESS ON SANDOR PICC INTACT AND PATENT. TPN RUNNING AT 60CC/HR. NO FACIAL GRIMACING NOTED. NO ACUTE DISTRESS. BAUMANN CATHETER IN PLACE. DRAINING BY GRAVITY. ALL SAFETY MEASURES IN PLACE. BED IN LOWEST POSITION AND LOCKED. SIDE RAILS UP X3, PLACE CALL LIGHT WITHIN REACH. WILL CONTINUE TO MONITOR.
[2022-01-17 20:00] VITALS: BP 134/82
--- NOTE | 2022-01-17 20:26 | NUR ---
RN NOTES: PT NPO DIAGNOSIS.NOTIFIED TEODORO ARAGON. ORDER- CHANGES PO KEPPRA TO IV SOLUTION. ORDER NOTED AND CARRIED OUT. WILL CONTINUE TO MONITOR
[2022-01-17] MEDS: MUPIROCIN OINT 2% 22 GM TUBE NS SCH (21:03)
[2022-01-17] MEDS ORDERED: LEVETIRACETAM (500MG) 500 MG/5 ML VIAL IV ONE ×2 (21:12→21:15)
[2022-01-17] MEDS: LEVETIRACETAM (500MG) 1,500 MG in IV NS 0.9% 100 ML IV SCH (21:24)
--- NOTE | 2022-01-17 23:42 | NUR ---
RN NOTES: PT'S BLOOD SUGAR 127. NO COVERAGE NEEDED. NO S/S OF HYPER/HYPOGLYCEMIA. WILL CONTINUE TO MONITOR
[2022-01-18] VITALS: BP 116/71
[2022-01-18 04:00] VITALS: BP 138/69
[2022-01-18] MEDS: BLOOD SUGAR DIAGNOSTIC 1 EACH STRIP IN SCH ×4 (05:33→23:31)
[2022-01-18] MEDS: INSULIN REGULAR, HUMAN 100 UNIT/ML 3 ML VIAL SQ PRN ×3 (05:33→23:31)
--- NOTE | 2022-01-18 05:34 | NUR ---
RN NOTES: PT'S BLOOD SUGAR 107. NO COVERAGE NEEDED. NO S/S OF HYPER/HYPOGLYCEMIA. WILL CONTINUE TO MONITOR
[2022-01-18] MEDS: CEFEPIME 2 GM in IV D5W 100 ML IV SCH ×3 (06:18→23:22)
--- NOTE | 2022-01-18 06:31 | NUR ---
RN OPENING NOTES: RECEIVED PT IN BED, AWAKE, ALERT/ORIENTED X0, AND RESPONSIVE TO PAINFUL STIMULI. ON ROOM AIR AND PT TOLERATED WELL. O2 SAT 97%. IV ACCESS ON SANDOR PICC INTACT AND PATENT. TPN RUNNING AT 60CC/HR. NO FACIAL GRIMACING NOTED. NO ACUTE DISTRESS. BAUMANN CATHETER IN PLACE. DRAINING BY GRAVITY. ALL DUE MEDS GIVEN ORDERED. ALL SAFETY MEASURES IN PLACE. BED IN LOWEST POSITION AND LOCKED. SIDE RAILS UP X3, PLACE CALL LIGHT WITHIN REACH. WILL ENDORSE TO MORNING SHIFT NURSE. Addendum: 01/18/22 at 0643 by KATHY PATEL RN WRONG CHART
[2022-01-18] MEDS ORDERED: TPN BAG #3 IV SCH ×2 (06:50)
[2022-01-18 07:33] LABS: CALCIUM, SERUM 9.2 mg/dL (8.5-10.1); CREATININE 0.5 mg/dL (0.6-1.3); POTASSIUM 5.3 mmol/L (3.5-5.1)
[2022-01-18 08:00] VITALS: BP 140/77
[2022-01-18] MEDS: VANCOMYCIN 1 GM in IV D5W 250ml IV SCH ×2 (08:07→19:53)
[2022-01-18 08:11] LABS: BASOPHILS % (AUTO) 0.5 % (0.0-2.0); EOSINOPHILS % (AUTO) 1.8 % (0.0-6.0); HEMATOCRIT 27 % (33-45); LYMPHOCYTES # (AUTO) 2.4 K/uL (0.8-4.8); LYMPHOCYTES % (AUTO) 25.6 % (20.0-44.0); MEAN CORPUSCULAR HGB CONC 33 g/dl (31.0-36.0); MEAN CORPUSCULAR VOLUME 81 fL (82-100); MONOCYTES # (AUTO) 0.8 K/uL (0.1-1.30); NEUTROPHILS % (AUTO) 64.1 % (43.0-81.0); PLATELET COUNT (AUTO) 319 K/uL (150-450); RED BLOOD CELL COUNT(AUTO) 3.36 MIL/uL (4.0-5.2); WHITE BLOOD COUNT (AUTO) 9.4 K/uL (4.3-11.0)
[2022-01-18] MEDS: ASPIRIN 81 MG TAB.CHEW GT SCH (09:00)
[2022-01-18] MEDS: ATORVASTATIN 10 MG TABLET GT SCH (09:00)
[2022-01-18] MEDS: MULTIVIT W/MINERALS 1 TAB TABLET GT SCH (09:00)
[2022-01-18] MEDS: POLYETHYLENE GLYCOL 3350 17 GM POWD.PACK GT SCH (09:00)
[2022-01-18] MEDS: MUPIROCIN OINT 2% 22 GM TUBE NS SCH ×2 (09:00→21:22)
--- NOTE | 2022-01-18 09:00 | NUR ---
RN NOTE PATIENT IS NPO AND ALL PO MEDS HELD
--- NOTE | 2022-01-18 09:11 | NUR ---
WOUND CARE CONSULT: PT PRESENTS WITH LARGE ABDOMINAL SURGICAL WOUND AND SACRAL/BUTTOCKS SCARRING, PRESENT ON ADMISSION. DR JIMENEZ CALLED FOR SURGICAL CONSULT. RECOMMENDATIONS MADE FOR SKIN PROTECTION. DISCUSSED WITH NURSING STAFF. PT IS ON RASTA ISOFLEX LOW AIRLOSS BED. MD IN AGREEMENT WITH PLAN OF CARE.
[2022-01-18] MEDS: CHLORHEXIDINE GLUCONATE 15 ML UDC MM SCH ×2 (10:28→17:44)
[2022-01-18] MEDS: LEVETIRACETAM (500MG) 1,500 MG in IV NS 0.9% 100 ML IV SCH ×2 (10:28→21:22)
[2022-01-18] MEDS: ENOXAPARIN SODIUM 40 MG/0.4 ML DISP.SYRIN SQ SCH (10:30)
[2022-01-18] MEDS ORDERED: SODIUM POLYSTYRENE SULFONATE 15 G/60 ML BOTTLE PO ONE (11:30)
[2022-01-18 12:00] VITALS: BP 131/84
[2022-01-18 16:00] VITALS: BP 119/65
[2022-01-18] MEDS: MORPHINE SULFATE INJ 2 MG/ML DISP.SYRIN IV PRN (16:05)
--- NOTE | 2022-01-18 19:00 | NUR ---
RN CLOSING NOTES PT IN BED, AWAKE, ALERT/ORIENTED X0, AND RESPONSIVE TO PAINFUL STIMULI. ON ROOM AIR AND PT TOLERATED WELL. O2 SAT 98%. IV ACCESS ON SANDOR PICC INTACT AND PATENT. TPN RUNNING AT 60CC/HR. NO FACIAL GRIMACING NOTED. NO ACUTE DISTRESS. BAUMANN CATHETER IN PLACE. DRAINING BY GRAVITY. ALL IV MEDS GIVEN ORDERED AND PO HELD PATIENT IS NPO. ALL SAFETY MEASURES IN PLACE. BED IN LOWEST POSITION AND LOCKED. SIDE RAILS UP X3, PLACE CALL LIGHT WITHIN REACH. WILL ENDORSE TO BINDERY MANAGER NURSE FOR ZI
[2022-01-18] MEDS: IV NS 0.9% 1,000 ML IV PRN (19:19)
--- NOTE | 2022-01-18 19:30 | NUR ---
RN OPENING NOTES: RECEIVED PT IN BED, AWAKE, A/O X0, RESPONDS TO STIMULI. ON RA, TOLERATING WELL, NO S/S OF ACUTE DISTRESS. IV ACCESS ON SANDOR PICC, INTACT AND PATENT, RUNNING NS@100ML/HR, ALSO RUNNING TPN RUNNING AT 60ML/HR. PT HAS BAUMANN CATHETER DRAINING CLEAR YELLOW URINE. ALL SAFETY MEASURES IN PLACE. BED IN LOWEST POSITION AND LOCKED. SIDE RAILS UP X3, PLACE CALL LIGHT WITHIN REACH. WILL CONTINUE TO MONITOR THROUGHOUT SHIFT.
[2022-01-18 20:00] VITALS: BP 120/74
--- NOTE | 2022-01-18 20:30 | NUR ---
RN NOTE ATTEMPTED TO CONTACT DAUGHTER LILLIE @ FROM [facility] ADMISSION RECORD. CALL WENT TO VOICEMAIL. WILL ENDORSE TO MORNING SHIFT.
[2022-01-19] VITALS: BP 130/87
[2022-01-19] MEDS ORDERED: TPN BAG #4 IV SCH ×2
[2022-01-19] MEDS: MORPHINE SULFATE INJ 2 MG/ML DISP.SYRIN IV PRN ×2 (02:31→21:16)
[2022-01-19 04:00] VITALS: BP 141/83
[2022-01-19] MEDS: INSULIN REGULAR, HUMAN 100 UNIT/ML 3 ML VIAL SQ PRN ×4 (06:22→23:35)
[2022-01-19] MEDS: BLOOD SUGAR DIAGNOSTIC 1 EACH STRIP IN SCH ×4 (06:22→23:35)
[2022-01-19 06:31] LABS: BASOPHILS % (AUTO) 0.5 % (0.0-2.0); EOSINOPHILS % (AUTO) 2.3 % (0.0-6.0); HEMATOCRIT 24 % (33-45); HEMOGLOBIN 7.6 g/dL (11.5-14.8); LYMPHOCYTES # (AUTO) 2.3 K/uL (0.8-4.8); LYMPHOCYTES % (AUTO) 27.1 % (20.0-44.0); MEAN CORPUSCULAR HGB CONC 32 g/dl (31.0-36.0); MEAN CORPUSCULAR VOLUME 81 fL (82-100); MONOCYTES # (AUTO) 0.7 K/uL (0.1-1.30); MONOCYTES % (AUTO) 8.4 % (2.0-12.0); NEUTROPHILS # (AUTO) 5.2 K/uL (1.8-8.9); NEUTROPHILS % (AUTO) 61.7 % (43.0-81.0); PLATELET COUNT (AUTO) 278 K/uL (150-450); RED BLOOD CELL COUNT(AUTO) 2.95 MIL/uL (4.0-5.2); WHITE BLOOD COUNT (AUTO) 8.5 K/uL (4.3-11.0)
[2022-01-19] MEDS: CEFEPIME 2 GM in IV D5W 100 ML IV SCH ×3 (06:55→23:23)
[2022-01-19] MEDS: IV NS 0.9% 1,000 ML IV PRN (06:55)
[2022-01-19 06:58] LABS: ALBUMIN 1.7 g/dL (3.4-5.0); BILIRUBIN,TOTAL 0.2 mg/dL (0.2-1.0); CALCIUM, SERUM 8.8 mg/dL (8.5-10.1); CREATININE 0.5 mg/dL (0.6-1.3); MAGNESIUM 1.4 mg/dL (1.8-2.4); PHOSPHORUS 1.9 mg/dL (2.5-4.9); TOTAL PROTEIN, SERUM 6.1 g/dL (6.4-8.2)
--- NOTE | 2022-01-19 07:02 | NUR ---
RN CLOSING NOTES: PT IN BED, ASLEEP A/O X0, RESPONDS TO STIMULI. ON RA, TOLERATING WELL, NO S/S OF ACUTE DOSTRESS. IV ACCESS ON SANDOR PICC, INTACT AND PATENT, RUNNING NS@100ML/HR, ALSO RUNNING TPN RUNNING AT 80ML/HR. PT HAS BAUMANN CATHETER DRAINING CLEAR YELLOW URINE.ALL DUE MEDS GIVEN. ALL SAFETY MEASURES IN PLACE. BED IN LOWEST POSITION AND LOCKED. SIDE RAILS UP X3, PLACE CALL LIGHT WITHIN REACH. WILL ENDORSE TO MORNING ASHLEY
[2022-01-19 07:08] LABS: POTASSIUM 2.8 mmol/L (3.5-5.1)
--- NOTE | 2022-01-19 07:08 | NUR ---
LAB CALLED FOR A CRITICAL K+ LEVEL OF 2.8 DURING REPORT BEING GIVEN. ENDORSED TO MORNING SHIFT
--- NOTE | 2022-01-19 07:20 | NUR ---
ELECTRIC WELDER HELPER OPENING NOTE RECEIVED PATIENT IN BED, AWAKE, ALERT AND ORIENTED X0. PATIENT IS NONVERBAL, BUT RESPONDS TO STIMULATION. PATIENT HAS NO SIGNS OF PAIN OR DISCOMFORT. PATIENT HAS IV ACCESS ON RIGHT UPPER ARM PICC, INTACT AND PATENT, FLUSHES WELL. PATIENT HAS RIGHT MITTEN RESTRAINTS DUE TO PULLING OUT GTUBE. PATIENT HAS ABDOMINAL WOUND.PATIENT HAS NO GTUBE. PATIENT HAS TPN RUNNING AT 80 ML/HR. PATIENT HAS BAUMANN CATHETHER YELLOW COLOR URINE OUPUT.NO KINKS OR OBSTRUCTION NOTED. ALL SAFETY MEASURES IN PLACE. CALL LIGHT WITHIN REACH.BED LOCKED AT LOWEST POSITION.SIDE RAILS UP X2. CALL LIGHT WITHIN REACH.
--- NOTE | 2022-01-19 07:30 | NUR ---
INFORMED OF CRITICAL LAB RESULT POTASSIUM 2.8. POTASSIUM REPLACEMENT PHARMACY PROTOCOL INITIATED
[2022-01-19 08:00] VITALS: BP 137/98
[2022-01-19] MEDS: VANCOMYCIN 1 GM in IV D5W 250ml IV SCH ×2 (08:12→21:03)
[2022-01-19] MEDS: POLYETHYLENE GLYCOL 3350 17 GM POWD.PACK GT SCH (08:19)
[2022-01-19] MEDS: ASPIRIN 81 MG TAB.CHEW GT SCH (08:19)
[2022-01-19] MEDS: ATORVASTATIN 10 MG TABLET GT SCH (08:19)
[2022-01-19] MEDS: MULTIVIT W/MINERALS 1 TAB TABLET GT SCH (08:19)
[2022-01-19] MEDS: ENOXAPARIN SODIUM 40 MG/0.4 ML DISP.SYRIN SQ SCH (09:00)
[2022-01-19] MEDS: LEVETIRACETAM (500MG) 1,500 MG in IV NS 0.9% 100 ML IV SCH ×2 (09:49→20:46)
--- NOTE | 2022-01-19 10:30 | NUR ---
SPOKE WITH PHARMACY IF POTASSIUM,MAGNESIUM CAN BE ADJUSTED DUE TO ANTIBOTICS RUNNING.
[2022-01-19] MEDS: CHLORHEXIDINE GLUCONATE 15 ML UDC MM SCH ×2 (10:52→17:16)
--- NOTE | 2022-01-19 10:52 | NUR ---
SPOKE WITH DR. ADRIAN IF LOVENOX CAN BE HELD DUE TO HGB TRENDING DOWN. SAID OK TO HOLD LOVENOX.
--- NOTE | 2022-01-19 10:58 | NUR ---
WOUND CARE: DISCUSSED WOUND TREATMENT PLAN WITH SURGICAL P.A. WOUND VAC TO BE STARTED IN AM FOR ABDOMINAL WOUND.
[2022-01-19] MEDS: Magnesium 1GM/D5W 100ML PREMIX 100 ML IV SCH ×2 (11:03→12:08)
[2022-01-19] MEDS: MUPIROCIN OINT 2% 22 GM TUBE NS SCH ×2 (11:04→20:47)
[2022-01-19 12:00] VITALS: BP 149/95
[2022-01-19] MEDS ORDERED: TPN BAG #5 IV SCH ×4 (12:00)
[2022-01-19] MEDS: POTASSIUM CL. PREMIX PERIPHER. 50 ML IV SCH ×5 (13:28→18:10)
[2022-01-19 16:00] VITALS: BP 111/55
[2022-01-19] MEDS ORDERED: POTASSIUM PHOSPHATE MM 15 MMOL in IV NS 0.9% 250 ML IV SCH ×2 (17:00→22:30)
--- NOTE | 2022-01-19 18:30 | NUR ---
SPOKE WITH PHARMACY TO ADJUST TIME OF POTASSIUM PHOSPHATE DUE TO POTASSIUM IV CURRENTLY BEGINNING. AND TO ENDORSE TO CUSTOMER SERVICES MANAGER TO BEGIN ANTIBOTIC AT 2030
--- NOTE | 2022-01-19 19:14 | NUR ---
DRUG AND ALCOHOL COUNSELLOR CLOSING NOTES PATIENT IN BED, AWAKE, ALERT AND ORIENTED X0. PATIENT IS NONVERBAL, BUT RESPONDS TO STIMULATION. PATIENT HAS NO SIGNS OF PAIN OR DISCOMFORT. PATIENT HAS IV ACCESS ON RIGHT UPPER ARM PICC, INTACT AND PATENT, FLUSHES WELL. PATIENT HAS TPN RUNNING AT 80 ML/HR. PATIENT HAS BAUMANN CATHETHER YELLOW COLOR URINE OUPUT.NO KINKS OR OBSTRUCTION NOTED. PATIENT HAS RIGHT MITTEN RESTRAINT. NO SIGNS OF SKIN CIRCULATION NOTED AT THIS TIME. ALL SAFETY MEASURES IN PLACE. CALL LIGHT WITHIN REACH.BED LOCKED AT LOWEST POSITION.SIDE RAILS UP X2. CALL LIGHT WITH REACH
--- NOTE | 2022-01-19 19:46 | NUR ---
RN OPENING NOTES: RECEIVED PT IN BED, AWAKE, ALERT/ORIENTED X0, AND RESPONSIVE TO PAINFUL STIMULI. ON ROOM AIR AND PT TOLERATED WELL. IV ACCESS ON SANDOR PICC INTACT AND PATENT. TPN RUNNING AT 80CC/HR. NO FACIAL GRIMACING NOTED. NO ACUTE DISTRESS. BAUMANN CATHETER IN PLACE. DRAINING BY GRAVITY. NOTED WITH YELLOWISH/CLEAR URINE. ALL SAFETY MEASURES IN PLACE. BED IN LOWEST POSITION AND LOCKED. SIDE RAILS UP X3, PLACE CALL LIGHT WITHIN REACH. WILL CONTINUE TO MONITOR.
[2022-01-19 20:00] VITALS: BP 135/98
--- NOTE | 2022-01-19 20:34 | NUR ---
RN NOTES: GOT PHONE CONSENT FROM DAUGHTER TIMBO ST REGARDING WOUND DEBRIDEMENT OF ABDOMEN. WITNESS BY RAMBO BROOKE.
--- NOTE | 2022-01-19 21:26 | NUR ---
RN NOTES: PT NOTED WITH FACIAL GRIMACING, MOANING, CRYING. MORPHINE GIVEN PER PRN ORDERED AND PT TOLERATED WELL. WILL CONTINUE TO MONITOR
--- NOTE | 2022-01-19 23:36 | NUR ---
RN NOTES: PT'S BLOOD SUGAR 126. NO COVERAGE NEEDED. NO S/S OF HYPER/HYPOGLYCEMIA. WILL CONTINUE TO MONITOR
[2022-01-20] VITALS: BP 132/82
[2022-01-20] MEDS ORDERED: TPN BAG #6 IV SCH ×2
[2022-01-20 04:00] VITALS: BP 139/90
[2022-01-20] MEDS: BLOOD SUGAR DIAGNOSTIC 1 EACH STRIP IN SCH ×4 (05:44→23:57)
[2022-01-20] MEDS: INSULIN REGULAR, HUMAN 100 UNIT/ML 3 ML VIAL SQ PRN ×2 (05:44→18:02)
[2022-01-20] MEDS: CEFEPIME 2 GM in IV D5W 100 ML IV SCH ×3 (06:06→23:56)
--- NOTE | 2022-01-20 06:29 | NUR ---
RN CLOSING NOTES: PT IN BED,SLEEPING, BUT EASILY AROUSABLE, ALERT/ORIENTED X 0, AND RESPONSIVE TO PAINFUL STIMULI. ON ROOM AIR AND PT TOLERATED WELL. IV ACCESS ON SANDOR PICC INTACT AND PATENT. TPN RUNNING AT 80CC/HR. NO FACIAL GRIMACING NOTED. NO ACUTE DISTRESS. BAUMANN CATHETER IN PLACE. DRAINING BY GRAVITY. NOTED WITH YELLOWISH URINE. ALL DUE MEDS GIVEN ORDERED. ALL SAFETY MEASURES IN PLACE. BED IN LOWEST POSITION AND LOCKED. SIDE RAILS UP X3, PLACE CALL LIGHT WITHIN REACH. WILL ENDORSE TO MORNING SHIFT NURSE.
[2022-01-20 07:04] LABS: CALCIUM, SERUM 9.5 mg/dL (8.5-10.1); CREATININE 0.5 mg/dL (0.6-1.3); MAGNESIUM 1.8 mg/dL (1.8-2.4); PHOSPHORUS 2.8 mg/dL (2.5-4.9); POTASSIUM 3.3 mmol/L (3.5-5.1)
--- NOTE | 2022-01-20 07:30 | NUR ---
CELL TECHNICIAN OPENING NOTE RECEIVED PATIENT IN BED, AWAKE, ALERT AND ORIENTED X0. PATIENT IS NONVERBAL, BUT RESPONDS TO STIMULATION. PATIENT HAS NO SIGNS OF PAIN OR DISCOMFORT. PATIENT HAS IV ACCESS ON RIGHT UPPER ARM PICC, INTACT AND PATENT, FLUSHES WELL. PATIENT HAS RIGHT MITTEN RESTRAINTS DUE TO PULLING OUT GTUBE.NO SKIN OR CIRCULATION ISSUES NOTED AT THIS TIME. PATIENT HAS ABDOMINAL WOUND.PATIENT HAS NO GTUBE. PATIENT HAS TPN RUNNING AT 80 ML/HR. PATIENT HAS BAUMANN CATHETHER YELLOW COLOR URINE OUPUT.NO KINKS OR OBSTRUCTION NOTED. ALL SAFETY MEASURES IN PLACE. CALL LIGHT WITHIN REACH.BED LOCKED AT LOWEST POSITION.SIDE RAILS UP X2. CALL LIGHT WITHIN REACH.
[2022-01-20] MEDS: VANCOMYCIN 1 GM in IV D5W 250ml IV SCH ×2 (07:51→19:54)
[2022-01-20 08:19] LABS: BASOPHILS # (AUTO) 0.1 K/uL (0.0-0.2); BASOPHILS % (AUTO) 0.7 % (0.0-2.0); EOSINOPHILS % (AUTO) 2.8 % (0.0-6.0); HEMATOCRIT 26 % (33-45); HEMOGLOBIN 8.3 g/dL (11.5-14.8); LYMPHOCYTES # (AUTO) 2.5 K/uL (0.8-4.8); LYMPHOCYTES % (AUTO) 25.4 % (20.0-44.0); MEAN CORPUSCULAR HGB CONC 31 g/dl (31.0-36.0); MEAN CORPUSCULAR VOLUME 83 fL (82-100); MONOCYTES # (AUTO) 0.8 K/uL (0.1-1.30); MONOCYTES % (AUTO) 8.4 % (2.0-12.0); NEUTROPHILS # (AUTO) 6.2 K/uL (1.8-8.9); NEUTROPHILS % (AUTO) 62.7 % (43.0-81.0); PLATELET COUNT (AUTO) 299 K/uL (150-450); RED BLOOD CELL COUNT(AUTO) 3.19 MIL/uL (4.0-5.2); WHITE BLOOD COUNT (AUTO) 9.9 K/uL (4.3-11.0)
[2022-01-20] MEDS: MORPHINE SULFATE INJ 2 MG/ML DISP.SYRIN IV PRN ×2 (08:19→19:54)
[2022-01-20 08:37] VITALS: BP 111/73
[2022-01-20] MEDS: ASPIRIN 81 MG TAB.CHEW GT SCH (08:59)
[2022-01-20] MEDS: ATORVASTATIN 10 MG TABLET GT SCH (09:00)
[2022-01-20] MEDS: POLYETHYLENE GLYCOL 3350 17 GM POWD.PACK GT SCH (09:00)
[2022-01-20] MEDS: MULTIVIT W/MINERALS 1 TAB TABLET GT SCH (09:00)
--- NOTE | 2022-01-20 09:24 | NUR ---
WOUND CARE FOLLOW UP: PT SEEN WITH SURGICAL P.A. AND WOUND VAC APPLIED TO ABDOMINAL WOUND USING WHITE AND BLACK GRANUFOAM. SKIN PREP AND VAC DRAPE WAS APPLIED TO PERIWOUND AREAS. VAC AT 125mmHg CONTINUOUS SETTING. PLAN NEXT DRESSING CHANGE FOR TUESDAY. DISCUSSED SKIN PROTECTION WITH NURSING STAFF. MD IN AGREEMENT WITH PLAN OF CARE.
--- NOTE | 2022-01-20 10:00 | NUR ---
NOTIFIED THAT HGB IS ABOVE 8 AND PATIENT IS STATUS POST WOUND DEBRIDEMENT WITH SANGEIOUS DRESSING AND IF IT WAS OKAY TO GIVE LOVENOX. SAID OK TO GIVE LOVENOX
[2022-01-20] MEDS: LEVETIRACETAM (500MG) 1,500 MG in IV NS 0.9% 100 ML IV SCH ×2 (10:25→22:17)
[2022-01-20] MEDS: CHLORHEXIDINE GLUCONATE 15 ML UDC MM SCH ×2 (10:37→17:04)
[2022-01-20] MEDS: CLOTRIMAZOLE 1% 15 GM TUBE TP SCH ×2 (10:37→17:04)
[2022-01-20] MEDS: MUPIROCIN OINT 2% 22 GM TUBE NS SCH ×2 (10:41→21:00)
[2022-01-20] MEDS: ENOXAPARIN SODIUM 40 MG/0.4 ML DISP.SYRIN SQ SCH (10:59)
[2022-01-20] MEDS: POTASSIUM CL. PREMIX PERIPHER. 50 ML IV SCH ×4 (11:06→15:08)
[2022-01-20] MEDS: IV NS 0.9% 1,000 ML IV PRN (11:10)
[2022-01-20 12:00] VITALS: BP 120/72
[2022-01-20] MEDS ORDERED: TPN BAG #7 IV SCH ×8 (12:00)
--- NOTE | 2022-01-20 13:00 | NUR ---
PROVIDED UPDATES TO PATIENT DAUGHTER ABOUT PATIENT CONDITION
[2022-01-20 16:00] VITALS: BP 107/65
--- NOTE | 2022-01-20 17:00 | NUR ---
patient is status post wound vac. continuously draining with sanguinous dressing. wound vac dressing clean,dry and intact.
--- NOTE | 2022-01-20 19:45 | NUR ---
FULL ROLL INSPECTOR OPENING NOTE RECEIVED PATIENT IN BED AWAKE, A/O X0. PATIENT IS NONVERBAL, BUT RESPONDS TO STIMULATION. ON RA TOLERATING WELL. NOT IN RESPIRATORY DISTRESS, PATIENT HAS IV ACCESS ON RIGHT UPPER ARM PICC, INTACT AND PATENT, FLUSHES WELL RUNNING NS AT 100 ML/HR. PATIENT HAS RIGHT MITTEN RESTRAINTS. NO SKIN OR CIRCULATION ISSUES NOTED AT THIS TIME. PATIENT HAS ABDOMINAL WOUND CONNECTED TO WOUNDVAC. PATIENT HAS TPN RUNNING AT 100 ML/HR. PATIENT HAS BAUMANN CATHETER DRAINING TO YELLOW COLOR URINE. ALL SAFETY MEASURES IN PLACE. CALL LIGHT WITHIN REACH.BED LOCKED AT LOWEST POSITION. SIDE RAILS UP X2. WILL CONT TO MONITOR THROUGHOUT THE SHIFT.
--- NOTE | 2022-01-20 19:46 | NUR ---
RAIL BONDER CLOSING NOTE PATIENT IN BED, AWAKE, ALERT AND ORIENTED X0. PATIENT IS NONVERBAL, BUT RESPONDS TO STIMULATION. PATIENT HAS NO SIGNS OF PAIN OR DISCOMFORT. PATIENT HAS IV ACCESS ON RIGHT UPPER ARM PICC, INTACT AND PATENT, FLUSHES WELL. PATIENT HAS RIGHT MITTEN RESTRAINTS DUE TO PULLING OUT GTUBE.NO SKIN OR CIRCULATION ISSUES NOTED AT THIS TIME. PATIENT HAS WOUND VAC DRAINING.SANGEIOUS DRESSING NOTED. PATIENT HAS NO GTUBE. PATIENT HAS TPN RUNNING AT 100 ML/HR. PATIENT HAS BAUMANN CATHETHER YELLOW COLOR URINE OUPUT.NO KINKS OR OBSTRUCTION NOTED. ALL SAFETY MEASURES IN PLACE. CALL LIGHT WITHIN REACH.BED LOCKED AT LOWEST POSITION.SIDE RAILS UP X2.
--- NOTE | 2022-01-20 19:54 | NUR ---
RN NOTED NOTED PT GRIMACING IN PAIN AND GUARDING ON HER ABDOMEN AREA, MORPHINE GIVEN PRN ORDER FOR PAIN, PT TOLERATED WELL, V/S TAKEN AND RECORDED, WILL CONT TO MONITOR.
[2022-01-20 20:00] VITALS: BP 105/76
[2022-01-20] MEDS ORDERED: TPN IV SCH ×2 (22:00)
--- NOTE | 2022-01-20 23:49 | NUR ---
RN NOTE BS CHECKED AT 102 MG/DL, NO COVERAGE GIVEN PER SLIDING SCALE, WILL CONT TO MONITOR.
[2022-01-21] VITALS: BP 135/84
[2022-01-21 04:00] VITALS: BP 121/79
[2022-01-21] MEDS: IV NS 0.9% 1,000 ML IV PRN ×2 (04:54→19:02)
--- NOTE | 2022-01-21 06:00 | NUR ---
RN NOTE BS CHECKED AT 113 MG/DL, NO COVERAGE GIVEN PER SLIDING SCALE, WILL CONT TO MONITOR.
[2022-01-21] MEDS: CEFEPIME 2 GM in IV D5W 100 ML IV SCH ×3 (06:05→23:17)
[2022-01-21] MEDS: BLOOD SUGAR DIAGNOSTIC 1 EACH STRIP IN SCH ×4 (06:05→23:17)
--- NOTE | 2022-01-21 06:46 | NUR ---
BUILDING ESTIMATOR CLOSING NOTE PATIENT SLEEPING IN BED, BUT EASILY AROUSABLE TO TOUCH AND VOICE. PATIENT IS NONVERBAL, BUT RESPONDS TO STIMULATION. ON RA TOLERATING WELL. NOT IN RESPIRATORY DISTRESS, PATIENT HAS IV ACCESS ON RIGHT UPPER ARM PICC, INTACT AND PATENT, FLUSHES WELL RUNNING NS AT 100 ML/HR AND TPN RUNNING AT 100 ML/HR. PATIENT HAS RIGHT MITTEN RESTRAINTS. NO SKIN OR CIRCULATION ISSUES NOTED AT THIS TIME. PATIENT HAS ABDOMINAL WOUND CONNECTED TO WOUNDVAC. PATIENT HAS BAUMANN CATHETER DRAINING TO YELLOW COLOR URINE. ALL DUE MEDS GIVEN, KEPT DRY AND CLEAN, ALL SAFETY MEASURES IN PLACE. CALL LIGHT WITHIN REACH.BED LOCKED AT LOWEST POSITION. SIDE RAILS UP X2. WILL ENDORSE TO AM SHIFT NURSE FOR CONTINUITY OF CARE.
[2022-01-21 06:52] LABS: BASOPHILS % (AUTO) 0.5 % (0.0-2.0); EOSINOPHILS % (AUTO) 2.9 % (0.0-6.0); HEMATOCRIT 25 % (33-45); HEMOGLOBIN 7.7 g/dL (11.5-14.8); LYMPHOCYTES # (AUTO) 2.3 K/uL (0.8-4.8); LYMPHOCYTES % (AUTO) 26.5 % (20.0-44.0); MEAN CORPUSCULAR HGB CONC 32 g/dl (31.0-36.0); MEAN CORPUSCULAR VOLUME 82 fL (82-100); MONOCYTES # (AUTO) 0.7 K/uL (0.1-1.30); MONOCYTES % (AUTO) 7.9 % (2.0-12.0); NEUTROPHILS # (AUTO) 5.4 K/uL (1.8-8.9); NEUTROPHILS % (AUTO) 62.2 % (43.0-81.0); PLATELET COUNT (AUTO) 289 K/uL (150-450); RED BLOOD CELL COUNT(AUTO) 2.99 MIL/uL (4.0-5.2); WHITE BLOOD COUNT (AUTO) 8.7 K/uL (4.3-11.0)
--- NOTE | 2022-01-21 07:16 | NUR ---
WOUND CARE CONSULT: WOUND VAC FUNCTIONING WELL TO ABDOMINAL WOUND AT 125mmHg CONTINUOUS SETTING. 200cc RED DRAINAGE NOTED IN CANISTER. WILL FOLLOW.
[2022-01-21 07:29] LABS: CALCIUM, SERUM 9.5 mg/dL (8.5-10.1); CREATININE 0.6 mg/dL (0.6-1.3); POTASSIUM 3.2 mmol/L (3.5-5.1)
[2022-01-21 08:00] VITALS: BP 130/79
[2022-01-21] MEDS ORDERED: TPN IV SCH ×2 (08:00)
--- NOTE | 2022-01-21 08:00 | NUR ---
CORRECTIONAL PROGRAM SPECIALIST NOTE PATIENT S IN BED, AWAKE BOTH EYES OPEN WITH CONFUSION. PATIENT IS NONVERBAL, BUT RESPONDS TO STIMULATION. ON RA TOLERATING WELL. NOT IN RESPIRATORY DISTRESS, PATIENT HAS IV ACCESS ON RIGHT UPPER ARM PICC, INTACT AND PATENT, FLUSHES WELL RUNNING NS AT 100 ML/HR AND TPN RUNNING AT 100 ML/HR. PATIENT HAS RIGHT MITTEN RESTRAINTS. NO SKIN OR CIRCULATION ISSUES NOTED AT THIS TIME. PATIENT HAS ABDOMINAL WOUND CONNECTED TO WOUND VAC. PATIENT HAS BAUMANN CATHETER DRAINING TO YELLOW COLOR URINE. SAFETY MEASURE PROVIDED
[2022-01-21] MEDS: ASPIRIN 81 MG TAB.CHEW GT SCH (08:54)
[2022-01-21] MEDS: ATORVASTATIN 10 MG TABLET GT SCH (08:54)
[2022-01-21] MEDS: MULTIVIT W/MINERALS 1 TAB TABLET GT SCH (08:55)
[2022-01-21] MEDS: POLYETHYLENE GLYCOL 3350 17 GM POWD.PACK GT SCH (08:55)
[2022-01-21] MEDS: CHLORHEXIDINE GLUCONATE 15 ML UDC MM SCH ×2 (08:58→16:18)
[2022-01-21] MEDS: LEVETIRACETAM (500MG) 1,500 MG in IV NS 0.9% 100 ML IV SCH ×2 (08:58→22:43)
[2022-01-21] MEDS: ENOXAPARIN SODIUM 40 MG/0.4 ML DISP.SYRIN SQ SCH (08:59)
[2022-01-21] MEDS: MUPIROCIN OINT 2% 22 GM TUBE NS SCH ×2 (09:00→20:08)
[2022-01-21] MEDS: CLOTRIMAZOLE 1% 15 GM TUBE TP SCH ×2 (09:00→16:18)
--- NOTE | 2022-01-21 10:30 | NUR ---
telephone cleaner note cont tpn infusion and kcl , will monitor
[2022-01-21 11:49] LABS: MAGNESIUM 1.5 mg/dL (1.8-2.4); PHOSPHORUS 2.2 mg/dL (2.5-4.9)
[2022-01-21 12:00] VITALS: BP 132/81
[2022-01-21] MEDS ORDERED: POTASSIUM CHLORIDE 20 MEQ POWDER PACKET NG ONE (12:00)
[2022-01-21] MEDS: POTASSIUM CL. PREMIX PERIPHER. 50 ML IV SCH ×4 (12:51→16:18)
[2022-01-21] MEDS: Magnesium 1GM/D5W 100ML PREMIX 100 ML IV SCH ×2 (13:33→14:45)
[2022-01-21 13:42] LABS: EOSINOPHILS % (MANUAL) 4 % (0-4); LYMPHOCYTES % (MANUAL) 24 % (16-48); MONOCYTES % (MANUAL) 5 % (0-11.0); NEUTROPHILS % (MANUAL) 67 (42-76)
--- NOTE | 2022-01-21 15:06 | NUR ---
television audio engineer note per dr lo ok to d\c asa, mvi , Lipitor Miralax patint on tpn ,no g tube in place at this time
[2022-01-21 16:00] VITALS: BP 132/73
[2022-01-21] MEDS ORDERED: POTASSIUM PHOSPHATE MM 7.5 MMOL in IV NS 0.9% 100 ML IV SCH (16:00)
--- NOTE | 2022-01-21 16:00 | NUR ---
POSTAL SUPERVISOR NOTE CONT ON TPN AND IVF KEEP CLEAN DRY , NOT IN DISTRES
[2022-01-21] MEDS ORDERED: TPN BAG #10 IV SCH ×4 (18:00)
--- NOTE | 2022-01-21 18:32 | NUR ---
REFRIGERATION SERVICE TECHNICIAN NOTE PATIENT IN BED, ON RA NO SOB NOTED AT THIS TIME STILL NEEDS ,MITTEN ON RT HAND AT RISK TO REMOVE ALL LINENS, KEEP CLEAN DRY, TURN REPOSITION , SAFETY MEASURE PROVIDED
--- NOTE | 2022-01-21 19:20 | NUR ---
RN NOTE CALLED PHARMACY ABOUT VANCOMYCIN DOSE SCHEDULED FOR 1999. VANCO THROUGH WAS 23. SPOKE TO NINE SHE SAID OKAY TO GIVE DOSE THIS EVENING BECAUSE MORNING DOSE WAS ALREADY BEEN HOLD.
--- NOTE | 2022-01-21 19:32 | NUR ---
CONCHE LOADER AND UNLOADER OPENING NOTE RECEIVED PATIENT IN BED AWAKE, A/O X0. PATIENT IS NONVERBAL, BUT RESPONDS TO STIMULATION. ON RA TOLERATING WELL. NOT IN RESPIRATORY DISTRESS, PATIENT HAS IV ACCESS ON RIGHT UPPER ARM PICC, INTACT AND PATENT, FLUSHES WELL RUNNING NS AT 100 ML/HR AND TPN AT 10O ML/HR. NOTED WITH R HAND PERIPHERAL IV WITH POTASSIUM PHOSPHATE RUNNING AT 34.16 ML/HR, PATIENT HAS RIGHT MITTEN RESTRAINTS. NO SKIN OR CIRCULATION ISSUES NOTED AT THIS TIME. PATIENT HAS ABDOMINAL WOUND CONNECTED TO WOUNDVAC. PATIENT HAS BAUMANN CATHETER DRAINING TO YELLOW COLOR URINE. ALL SAFETY MEASURES IN PLACE. CALL LIGHT WITHIN REACH.BED LOCKED AT LOWEST POSITION. SIDE RAILS UP X2. WILL CONT TO MONITOR THROUGHOUT THE SHIFT.
[2022-01-21 20:00] VITALS: BP 138/70
[2022-01-21] MEDS: VANCOMYCIN HCL 0.75 GM in IV D5W 250 ML IV SCH (20:07)
--- NOTE | 2022-01-21 23:43 | NUR ---
RN NOTE BS CHECKED AT 117 MG/DL, NO COVERAGE GIVEN PER SLIDING SCALE. WILL CONT TO MONITOR.
[2022-01-22] VITALS: BP 142/83
[2022-01-22 04:00] VITALS: BP 156/85
[2022-01-22] MEDS ORDERED: TPN BAG#11 IV SCH ×2 (04:00)
[2022-01-22] MEDS: MORPHINE SULFATE INJ 2 MG/ML DISP.SYRIN IV PRN ×3 (04:24→14:52)
[2022-01-22] MEDS: BLOOD SUGAR DIAGNOSTIC 1 EACH STRIP IN SCH ×4 (05:13→23:25)
[2022-01-22] MEDS: IV NS 0.9% 1,000 ML IV PRN (05:38)
[2022-01-22] MEDS: INSULIN REGULAR, HUMAN 100 UNIT/ML 3 ML VIAL SQ PRN ×4 (05:50→23:24)
[2022-01-22 05:54] LABS: BASOPHILS # (AUTO) 0.1 K/uL (0.0-0.2); BASOPHILS % (AUTO) 0.6 % (0.0-2.0); EOSINOPHILS % (AUTO) 3.5 % (0.0-6.0); HEMATOCRIT 29 % (33-45); HEMOGLOBIN 8.9 g/dL (11.5-14.8); LYMPHOCYTES # (AUTO) 2.7 K/uL (0.8-4.8); LYMPHOCYTES % (AUTO) 31.2 % (20.0-44.0); MEAN CORPUSCULAR HGB CONC 31 g/dl (31.0-36.0); MEAN CORPUSCULAR VOLUME 83 fL (82-100); MONOCYTES # (AUTO) 0.7 K/uL (0.1-1.30); NEUTROPHILS # (AUTO) 4.9 K/uL (1.8-8.9); NEUTROPHILS % (AUTO) 56.7 % (43.0-81.0); PLATELET COUNT (AUTO) 355 K/uL (150-450); RED BLOOD CELL COUNT(AUTO) 3.44 MIL/uL (4.0-5.2); WHITE BLOOD COUNT (AUTO) 8.6 K/uL (4.3-11.0)
[2022-01-22] MEDS: CEFEPIME 2 GM in IV D5W 100 ML IV SCH ×3 (05:55→22:52)
[2022-01-22 05:58] LABS: CALCIUM, SERUM 9.9 mg/dL (8.5-10.1); CREATININE 0.6 mg/dL (0.6-1.3); POTASSIUM 3.4 mmol/L (3.5-5.1)
--- NOTE | 2022-01-22 06:33 | NUR ---
CLINICAL INFORMATICS MANAGER CLOSING NOTE PATIENT AWAKE IN BED, PATIENT IS NONVERBAL, BUT RESPONDS TO STIMULATION. ON RA TOLERATING WELL. NOT IN RESPIRATORY DISTRESS, PATIENT HAS IV ACCESS ON R WRIST AND RIGHT UPPER ARM PICC, INTACT AND PATENT RUNNING NS AT 100 ML/HR AND TPN RUNNING AT 100 ML/HR. PATIENT HAS RIGHT MITTEN RESTRAINTS. NO SKIN OR CIRCULATION ISSUES NOTED AT THIS TIME. PATIENT HAS ABDOMINAL WOUND CONNECTED TO WOUNDVAC. PATIENT HAS BAUMANN CATHETER DRAINING TO YELLOW COLORED URINE. ALL DUE MEDS GIVEN, KEPT DRY AND CLEAN, ALL SAFETY MEASURES IN PLACE. CALL LIGHT WITHIN REACH. BED LOCKED AND AT LOWEST POSITION. SIDE RAILS UP X2. WILL ENDORSE TO AM SHIFT NURSE FOR CONTINUITY OF CARE.
--- NOTE | 2022-01-22 07:37 | NUR ---
RN SECURITY OPENING NOTE RECEIVED PATIENT IN BED AWAKE. PATIENT IS NONVERBAL, BUT RESPONDS TO STIMULATION. ON RA TOLERATINGG WELL, NO SOB, NOT IN RESPIRATORY DISTRESS, PATIENT HAS A RIGHT UPPER ARM PICC LINE, INTACT AND PATENT, FLUSHES WELL RUNNING NS AT 100 ML/HR AND TPN AT 10O ML/HR. NOTED WITH R HAND PERIPHERAL IV LINE PATENT AND INTACT. PATIENT ON RIGHT MITTEN RESTRAINTS, NO SKIN OR CIRCULATION ISSUES NOTED AT THIS TIME. PATIENT HAS ABDOMINAL WOUND CONNECTED TO WOUNDVAC. PATIENT ON BAUMANN CATHETER DRAINING TO YELLOW COLOR URINE. ALL SAFETY MEASURES IN PLACE. CALL LIGHT WITHIN REACH. BED LOCKED AT LOWEST POSITION. SIDE RAILS UP X2. WILL CONT TO MONITOR.
[2022-01-22 08:00] VITALS: BP 134/71
--- NOTE | 2022-01-22 08:10 | NUR ---
WOUND CARE: WOUND VAC DRESSING CHANGED TO ABDOMINAL WOUND. ABDOMINAL WOUND PRESENTS WITH RED GRANULATION TISSUE AND SUTURE NOTED. SUTURE COVERED WITH WHITE FOAM, THEN GRANUFOAM USED FOR WOUND. SKIN PREP AND VAC DRAPE USED FOR PERIWOUND AREAS. VAC AT 125mmHg CONTINUOUS SETTING. PT TOLERATED WELL. VAC CANISTER CHANGED WITH 325cc RED DRAINAGE. DISCUSSED SKIN PROTECTION WITH NURSING STAFF. IN AGREEMENT WITH PLAN OF CARE.
[2022-01-22 08:15] LABS: MAGNESIUM 1.6 mg/dL (1.8-2.4); PHOSPHORUS 2.3 mg/dL (2.5-4.9)
[2022-01-22] MEDS: ENOXAPARIN SODIUM 40 MG/0.4 ML DISP.SYRIN SQ SCH (09:03)
[2022-01-22] MEDS: CHLORHEXIDINE GLUCONATE 15 ML UDC MM SCH ×2 (09:03→17:20)
[2022-01-22] MEDS: VANCOMYCIN HCL 0.75 GM in IV D5W 250 ML IV SCH ×2 (09:05→19:48)
[2022-01-22] MEDS: MUPIROCIN OINT 2% 22 GM TUBE NS SCH ×2 (09:20→20:22)
[2022-01-22] MEDS: CLOTRIMAZOLE 1% 15 GM TUBE TP SCH ×2 (09:21→17:21)
[2022-01-22] MEDS: LEVETIRACETAM (500MG) 1,500 MG in IV NS 0.9% 100 ML IV SCH ×2 (09:50→20:59)
[2022-01-22] MEDS: Magnesium 1GM/D5W 100ML PREMIX 100 ML IV SCH ×2 (11:06→12:37)
[2022-01-22 12:00] VITALS: BP 120/78
[2022-01-22] MEDS: POTASSIUM PHOSPHATE MM 7.5 MMOL in IV NS 0.9% 100 ML IV SCH ×2 (13:06→15:34)
[2022-01-22] MEDS: FAT EMULSION 20% 500 ML in PREMIX 1 EA IV SCH (13:48)
[2022-01-22] MEDS ORDERED: TPN BAG #12 IV SCH ×4 (14:00)
[2022-01-22 16:00] VITALS: BP 123/69
--- NOTE | 2022-01-22 18:25 | NUR ---
SMALL ELECTRIC ENGINE TECHNICIAN CLOSING NOTE PATIENT IN BED, ALERT AND RESPONSIVE. PATIENT IS NONVERBAL, BUT RESPONDS TO STIMULATION. ON RA TOLERATING WELL,NO SOB NOTED. NOT IN RESPIRATORY DISTRESS. ON TELE MONITORING WITH READING OF ST HR=14. PATIENT HAS IV ACCESS ON L WRIST AND RIGHT UPPER ARM PICC, INTACT AND PATENT RUNNING NS AT 100 ML/HR AND TPN AND FAT EMULSION RUNNING, TOLERATING WELL. . PATIENT HAS RIGHT MITTEN RESTRAINTS, NO SKIN OR CIRCULATION ISSUES NOTED AT THIS TIME. PATIENT HAS ABDOMINAL WOUND CONNECTED TO WOUNDVAC., DRESSING INTACT, DRAINING WITH 50CC. PATIENT HAS BAUMANN CATHETER DRAINING TO 1800 ML YELLOW URINE. ALL DUE MEDS GIVEN, KEPT DRY AND CLEAN, ALL SAFETY MEASURES IN PLACE. CALL LIGHT WITHIN REACH. BED LOCKED AND AT LOWEST POSITION. SIDE RAILS UP X2. WILL ENDORSE TO HYDROTHERAPIST NURSE FOR CONTINUITY OF CARE.
[2022-01-22 20:00] VITALS: BP 120/76
--- NOTE | 2022-01-22 20:00 | NUR ---
GENERATION MECHANIC HELPER OPENING NOTES RECEIVED PT FOR CONTINUITY OF CARE. PATIENT A/OX0 IN NO S/SX OF ACUTE DISTRESS AT THIS TIME; CURRENTLY ON WITH 02 SAT >95% ST HR -102 ON THE MONITOR .WITH IV ACCESS PATENT, INTACT AND FLUSHING WELL. RIGHT UPPER ARM PICCLINE CONNECTED WITH TPN 101.1 ML INFUSING WELL AND LIPIDS AT 21CC/HR INFUSING WELL TOO NO ASE NOTED ,LEFT WRIST g#22 RUNNING NS@100CC/HR ON PROGRESS ALL DUE MEDS GIVEN ORDERED , WITH WOUND VAC ATTACH TO THE WOUND ,DRAINING . F/C INTACT AND PATENT DRAINING WITH YELLOWISH URINE OUTPUT .WILL ENSURE SAFETY MEASURES WITHIN THE SHIFT. PTS TURNED AND REPOSITION .PATIENT BED ALARM IS ON. HEAD OF BED ELEVATED. BED IS LOCKED, IN LOWEST POSITION AND SIDE RAILS UP. CALL LIGHT WITHIN REACH OF THE PATIENT. WILL CONTINUE TO MONITOR AND REASSESS FOR ANY CHANGES AND WILL CARRY OUT ANY ONGOING AND ACTIVE MD ORDER.
[2022-01-22] MEDS ORDERED: Magnesium 1GM/D5W 100ML PREMIX 100 ML IV SCH (21:00)
[2022-01-22] MEDS ORDERED: POTASSIUM CL. PREMIX PERIPHER. 50 ML IV SCH (22:00)
--- NOTE | 2022-01-22 23:26 | NUR ---
telemarketing agent notes. blood sugar at 12mn is 116mg/dl no insulin coverage given per sliding scale
[2022-01-23] VITALS (19 sets, daily range): BP systolic 98–145; BP diastolic 49–104
[2022-01-23] MEDS ORDERED: TPN BAG #13 IV SCH ×2
[2022-01-23] MEDS: IV NS 0.9% 1,000 ML IV PRN ×2 (01:35→16:45)
[2022-01-23] MEDS: MORPHINE SULFATE INJ 2 MG/ML DISP.SYRIN IV PRN (05:06)
--- NOTE | 2022-01-23 05:10 | NUR ---
telephonic case manager notes Pts noted with multiple pvcs hr of 127 morphine given 2mg as ordered, will continue to monitor pts.
[2022-01-23] MEDS: INSULIN REGULAR, HUMAN 100 UNIT/ML 3 ML VIAL SQ PRN ×3 (05:30→17:08)
[2022-01-23] MEDS: BLOOD SUGAR DIAGNOSTIC 1 EACH STRIP IN SCH ×3 (05:35→17:04)
--- NOTE | 2022-01-23 05:36 | NUR ---
telephone sterilizer notes blood sugar for 6am is 133mg/dl 2 units of regular iinsulin given per sliding scale.
--- NOTE | 2022-01-23 06:27 | NUR ---
INSPECTOR BOILER NOTES PATIENT REMAINED TO BE R/A IN NO SIGNS OF ACUTE RESPIRATORY DISTRESS , VITAL SIGNS STABLE AT THIS TIME. REGULAR TURNING AND REPOSITIONING DONE, AM PATIENT CARE RENDERED WILL CONTINUE TO MONITOR AND REASSESS FOR ANY CHANGES THROUGHOUT THE SHIFT.WILL ENDORSE TO RN DAY SHIFT FOR CONTINUITY OF CARE.
--- NOTE | 2022-01-23 06:40 | NUR ---
0640 (hospital clock time) PEPPER CUTTER called.
--- NOTE | 2022-01-23 06:42 | NUR ---
0642 CHEMICAL PROCESSOR team ICU charge nurse, RTs arrived at bedside to attend to patient.
--- NOTE | 2022-01-23 06:45 | NUR ---
0645 Called RAHEL Reece and made him aware of patient's change of condition with orders to give Amiodarone 150mg IVP and to start Amiodarone drip per protocol and to do stat EKG. Order noted and carried out. Patient remains responsive to stimuli, still in Vtach BP rechecked and obtained 108/70. Amiodarone 150mg IVP given as ordered.
--- NOTE | 2022-01-23 06:51 | NUR ---
0651 ( cardiac cath lab manager time) Patient was noted in sustained Vtach on the monitor. Immediately assessed patient and noted her awake in distress. Placed on nonrebreather mask 100%. Vital signs checked and obtained BP 144/104, O2 sat 100%. Connected patient to defib pads. HEAT TREAT INSPECTOR called.
[2022-01-23] MEDS ORDERED: Magnesium 1GM/D5W 100ML PREMIX PIGGYBACK IV STA (06:53)
[2022-01-23] MEDS ORDERED: AMIODARONE 150 MG in IV D5W 100 ML IV ONE (07:00)
--- NOTE | 2022-01-23 07:00 | NUR ---
0700 Patient remains in Vtach, with pulse but in distress. O2 saturation noted 94%. Unable to appreciate blood pressure. Called PRODUCTION CELL LEADER Chevy with order to transfer patient to ICU and to start on Levophed for BP support. Order noted and carried out.
[2022-01-23 07:07] LABS: BASOPHILS # (AUTO) 0.3 K/uL (0.0-0.2); BASOPHILS % (AUTO) 1.5 % (0.0-2.0); EOSINOPHILS % (AUTO) 2.4 % (0.0-6.0); HEMATOCRIT 29 % (33-45); HEMOGLOBIN 8.6 g/dL (11.5-14.8); LYMPHOCYTES % (AUTO) 47.4 % (20.0-44.0); MEAN CORPUSCULAR HGB CONC 30 g/dl (31.0-36.0); MEAN CORPUSCULAR VOLUME 87 fL (82-100); MONOCYTES # (AUTO) 1.2 K/uL (0.1-1.30); MONOCYTES % (AUTO) 6.5 % (2.0-12.0); NEUTROPHILS % (AUTO) 42.2 % (43.0-81.0); PLATELET COUNT (AUTO) 366 K/uL (150-450); RED BLOOD CELL COUNT(AUTO) 3.29 MIL/uL (4.0-5.2); WHITE BLOOD COUNT (AUTO) 19.1 K/uL (4.3-11.0)
--- NOTE | 2022-01-23 07:08 | NUR ---
0708 Transferred to ICU on ACLS protocol. Bedside report given by MENDY Tariq to MENDY Lam with questions answered.
[2022-01-23 07:19] LABS: CALCIUM, SERUM 9.6 mg/dL (8.5-10.1); CREATININE 0.8 mg/dL (0.6-1.3); PHOSPHORUS 2.6 mg/dL (2.5-4.9); POTASSIUM 3.6 mmol/L (3.5-5.1)
--- NOTE | 2022-01-23 07:23 | NUR ---
RN NOTE 1ST SHOCK DELIVERED [address] LAYTON AT BEDSIDE HR [address] 118
[2022-01-23] MEDS ORDERED: NOREPINEPHRINE 8 MG in IV NS 0.9% 242 ML IV PRN (07:30)
[2022-01-23] MEDS: CEFEPIME 2 GM in IV D5W 100 ML IV SCH (07:33)
--- NOTE | 2022-01-23 07:47 | NUR ---
television analyzer notes transfer to icu as ordered report given to amirah giron
--- NOTE | 2022-01-23 07:56 | NUR ---
RN NOTE RECEIVED PATIENT FOR CLAIRE BROOKE FROM [facility]. PATIENT PLACED IN ROOM 252. ON CARDIOVASCULAR OR NURSE PATIENT READS VT HR 222. WITH NON REBREATHER MASK 99% O2. PATIENT WAS STARTED ON AMIO DRIP. WITH BOLUS GIVEN IN [facility]. ER DOCTOR CALLED PATIENT WAS SHOCKED [address]
--- NOTE | 2022-01-23 08:03 | NUR ---
RN NOTE PATIENT RETURNED TO VT 228 RECEIVED ORDER TO SHOCK PATIENT [address] FROM DORON REYNOSO . CURRENT HR 118 Addendum: 01/23/22 at 0840 by DOROTHEA CAPELLAN RN ORDER FROM DR LAYTON
[2022-01-23] MEDS: VANCOMYCIN HCL 0.75 GM in IV D5W 250 ML IV SCH ×2 (08:50→19:28)
[2022-01-23] MEDS: CHLORHEXIDINE GLUCONATE 15 ML UDC MM SCH ×2 (08:50→17:04)
[2022-01-23] MEDS: ENOXAPARIN SODIUM 40 MG/0.4 ML DISP.SYRIN SQ SCH (08:51)
[2022-01-23] MEDS: CLOTRIMAZOLE 1% 15 GM TUBE TP SCH ×2 (09:20→17:04)
[2022-01-23] MEDS: MUPIROCIN OINT 2% 22 GM TUBE NS SCH ×2 (09:20→21:39)
[2022-01-23] MEDS: AMIODARONE 450 MG in IV D5W 241 ML IV PRN ×2 (09:49→15:12)
[2022-01-23] MEDS: LEVETIRACETAM (500MG) 1,500 MG in IV NS 0.9% 100 ML IV SCH ×2 (09:49→20:41)
[2022-01-23] MEDS ORDERED: TPN BAG #14 IV SCH ×4 (10:00)
[2022-01-23] MEDS ORDERED: TPN BAG #16 IV SCH ×2 (11:00)
[2022-01-23] MEDS: MEROPENEM 500 MG in IV NS 0.9% 50 ML IV SCH ×2 (11:52→22:07)
--- NOTE | 2022-01-23 15:00 | NUR ---
RN NOTE RETURNED CALL CHRISTIE [phone]. NO ANSWER LEFT MESSAGE TO CALL BACK.
[2022-01-23 15:49] LABS: ABG BASE EXCESS -5.4 mmol/L; ABG OXYGEN SATURATION 99.9 % (92.0-98.5); ABG PCO2 30.2 mmHg (35.0-45.0); ABG PH 7.404 (7.350-7.450); ABG PO2 584.7 mmHg (75.0-100.0); AaDO2 98.1 mmHg; COHb 0.1 % (0.5-1.5); MetHb 0.3 % (0.0-1.5); O2Hb 99.5 % (94.0-97.0); SITE, ABG Left Radial; VENT MODE, BG NRB 100%
--- NOTE | 2022-01-23 15:59 | NUR ---
Pt. placed on NC 2LPM SpO2 100 HR 89 per ABG result.
[2022-01-23] MEDS ORDERED: AMIODARONE 150 MG/3 ML VIAL IV ONE (18:35)
--- NOTE | 2022-01-23 18:56 | NUR ---
RN CLOSING NOTES PATIENT ON 2L NC NO SIGNS OF ACUTE RESPIRATORY DISTRESS , VITAL SIGNS STABLE AT THIS TIME. REGULAR TURNING AND REPOSITIONING DONE, AM PATIENT CARE RENDERED. IV ACCESS ON RIGHT UPPER ARM PICC RUNNING TPN AND NS AT 100MLS/HR RIGHT WRIST RUNNING AMIO 0.5MG/HR. SAFETY MEASURE IN PLACE RIGHT WRIST WRIST RESTRAINT IN PLACE. WILL ENDORSE TO NIGHT NURSE FOR ZI.
--- NOTE | 2022-01-23 19:30 | NUR ---
RN OPENING NOTE PT OBSERVED IN BED ON 2L O2 VIA NC TOLERATING WELL WITH NO SIGNS OF DISTRESS OR LABORED BREATHING O2 SAT 100%. PT IS A/OX1 SR AT THIS TIME. FC IS IN PLACE DRAINING URINE TO GRAVITY. IV ACCESS R UA PICC INFUSING WITH NS@100ML/HR AND TPN @100ML/HR; R SCHWARTZ INFUSING WITH AMI @0.5ML/HR. BED IS LOCKED IN LOWEST POSITION X2 BED RAILS UP AND ALL HOSPITAL SAFETY MEASURES ARE IN PLACE. WILL CONTINUE TO MONITOR THIS SHIFT.
[2022-01-23] MEDS ORDERED: TPN BAG #15 IV SCH ×2 (20:00)
[2022-01-23] MEDS: IV NS 0.9% 250 ML IV PRN (20:01)
[2022-01-23] MEDS ORDERED: POTASSIUM PHOSPHATE MM 7.5 MMOL in IV NS 0.9% 100 ML IV SCH (21:00)
[2022-01-24] VITALS (29 sets, daily range): BP systolic 60–158; BP diastolic 22–119
[2022-01-24] MEDS: INSULIN REGULAR, HUMAN 100 UNIT/ML 3 ML VIAL SQ PRN ×2 (00:06→06:38)
[2022-01-24] MEDS: BLOOD SUGAR DIAGNOSTIC 1 EACH STRIP IN SCH ×4 (00:06→18:18)
[2022-01-24] MEDS: AMIODARONE 450 MG in IV D5W 241 ML IV PRN ×2 (03:29→18:01)
[2022-01-24] MEDS: IV NS 0.9% 1,000 ML IV PRN ×2 (04:25→10:17)
[2022-01-24 04:50] LABS: BASOPHILS % (AUTO) 0.4 % (0.0-2.0); HEMATOCRIT 26 % (33-45); HEMOGLOBIN 8.2 g/dL (11.5-14.8); LYMPHOCYTES # (AUTO) 2.3 K/uL (0.8-4.8); MEAN CORPUSCULAR HGB CONC 31 g/dl (31.0-36.0); MEAN CORPUSCULAR VOLUME 81 fL (82-100); MONOCYTES # (AUTO) 0.8 K/uL (0.1-1.30); MONOCYTES % (AUTO) 7.9 % (2.0-12.0); NEUTROPHILS # (AUTO) 6.5 K/uL (1.8-8.9); NEUTROPHILS % (AUTO) 65.7 % (43.0-81.0); PLATELET COUNT (AUTO) 368 K/uL (150-450); RED BLOOD CELL COUNT(AUTO) 3.22 MIL/uL (4.0-5.2); WHITE BLOOD COUNT (AUTO) 9.8 K/uL (4.3-11.0)
[2022-01-24 05:14] LABS: CREATININE 0.6 mg/dL (0.6-1.3); MAGNESIUM 1.7 mg/dL (1.8-2.4); PHOSPHORUS 2.9 mg/dL (2.5-4.9)
[2022-01-24 05:31] LABS: POTASSIUM 2.8 mmol/L (3.5-5.1)
[2022-01-24] MEDS ORDERED: TPN BAG #16 IV SCH ×2 (06:00)
--- NOTE | 2022-01-24 07:10 | NUR ---
RETAIL AREA MANAGER NOTE RECEIVED PATIENT IN BED RESTING CONFUSED NOT VERBAL RESPONDING,HR 196 BP 158/119 O2:92% ON 6L OXYGEN VIA NASAL CANNULA,IV SITE IS ON RIGHT UPPER ARM MID LINE INTACT PATENT ON TPN 101 ML/HR,ON NS HYDRATION 100 ML/HR ON AMIODARONE 0.5 MG/MIN,WOUND VAC IN PLACE,BAUMANN CATH IN PLACE URINE DRAINING YELLOW BY GRAVITY,SAFETY MEASURE IMPLEMENT,HEAD OF THE BED ELEVATED, CONTINUE TO MONITOR.
[2022-01-24] MEDS ORDERED: Magnesium 1GM/D5W 100ML PREMIX PIGGYBACK IV ONE (07:30)
[2022-01-24] MEDS: POTASSIUM CL. PREMIX PERIPHER. 50 ML IV SCH ×8 (07:36→22:59)
--- NOTE | 2022-01-24 07:47 | NUR ---
RN CLOSING NOTE PT IS IN BED ON 4L O2 VIA NC O2 SAT 100%. PT IS A/OX1 SR AT THIS TIME. PT IS IN VTACH AT THIS TIME: MDS ARE AWARE AND 2 GM OF MAG HAVE BEEN ORDERED PER MD. CRITICAL LAB RECEIVED K+ 2.8 WILL BE REPLACED BY 60 MEQ OF K+. FC IS IN PLACE DRAINING URINE TO GRAVITY - 1500ML. IV ACCESS R UA PICC INFUSING WITH NS@100ML/HR AND TPN @100ML/HR; R SCHWARTZ INFUSING WITH AMI @0.5ML/HR. BED IS LOCKED IN LOWEST POSITION X2 BED RAILS UP AND ALL HOSPITAL SAFETY MEASURES ARE IN PLACE. WILL ENDORSE TO DAY SHIFT NURSE FOR ZI.
[2022-01-24] MEDS: Magnesium 1GM/D5W 100ML PREMIX 100 ML IV SCH ×2 (07:59→09:58)
[2022-01-24] MEDS ORDERED: LIDOCAINE 100MG/5ML DISP SYR ONE (08:39)
[2022-01-24] MEDS: VANCOMYCIN HCL 0.75 GM in IV D5W 250 ML IV SCH ×2 (09:00→20:15)
--- NOTE | 2022-01-24 09:30 | NUR ---
RN NOTE HR [address] NAIDU HE ORDERED LIDOCAINE DRIP NOTED AND CARRIED OUT
[2022-01-24] MEDS: CHLORHEXIDINE GLUCONATE 15 ML UDC MM SCH ×2 (09:36→17:04)
[2022-01-24] MEDS: ENOXAPARIN SODIUM 40 MG/0.4 ML DISP.SYRIN SQ SCH (09:37)
[2022-01-24] MEDS: MUPIROCIN OINT 2% 22 GM TUBE NS SCH (09:37)
[2022-01-24] MEDS: CLOTRIMAZOLE 1% 15 GM TUBE TP SCH ×2 (09:38→17:05)
[2022-01-24] MEDS: LEVETIRACETAM (500MG) 1,500 MG in IV NS 0.9% 100 ML IV SCH ×2 (09:57→20:32)
[2022-01-24] MEDS: IV LIDOCAINE HCL/D5W/PF/500ML 2,000 MG in PREMIX 1 EA IV PRN (10:02)
--- NOTE | 2022-01-24 10:02 | NUR ---
RN NOTE STARTS LIDOCAINE DRIP 1MG/MIN CONTINUE TO MONITOR.
--- NOTE | 2022-01-24 11:00 | NUR ---
RN NOTE HR 202 BP 60/[address] NAIDU HE ORDERED CARDIOVERSION NOTED AND CARRIED OUT.
[2022-01-24] MEDS ORDERED: MIDAZOLAM HCL 2 MG/2ML VIAL ONE (11:14)
[2022-01-24] MEDS ORDERED: MIDAZOLAM HCL 2 MG/2ML VIAL IV STA (11:19)
--- NOTE | 2022-01-24 11:25 | NUR ---
PER MD ORDERS BY DR LIMA 5MG OF VERSED GIVEN IV PRIOR TO CARDIOVERSION. MED WITNESSED BY ELTON BROOKE AND LIZZETTE BROOKE AND DR Toño LIMA.
--- NOTE | 2022-01-24 11:25 | NUR ---
RN NOTE CARDIOVERSION DONE BY CHARGE NURSE IVA,WITNESS DR LIMA,VENU RN AND LIZZETTE RN CONTINUE TO MONITOR.
[2022-01-24] MEDS ORDERED: PHENYLEPHRINE 100 MG in IV NS 0.9% 240 ML IV PRN (11:30)
--- NOTE | 2022-01-24 11:30 | NUR ---
RN NOTE HR 118 SINUS TACHYCARDIA CONTINUE TO MONITOR.
[2022-01-24] MEDS: MEROPENEM 500 MG in IV NS 0.9% 50 ML IV SCH ×2 (11:51→23:00)
[2022-01-24] MEDS: FAT EMULSION 20% 500 ML in PREMIX 1 EA IV SCH (14:43)
[2022-01-24] MEDS ORDERED: TPN BAG #17 IV SCH ×4 (16:00)
--- NOTE | 2022-01-24 18:56 | NUR ---
RN NOTE PATIENT REMAINS CONFUSED NOT VERBALLY RESPONSIVE ON 2L OXYGEN VIA NASAL CANNULA O2:100% IV SITE IS ON LEFT UPPER ARM MIDLINE AND RIGHT UPPER ARM PICC LINE INTACT PATENT,ON AMIODARONE DRIP 0.5MG/MIN,LIDOCAINE DRIP 1MG/MIN,ON TPN 101.1 ML/HR ON NS HYDRATION 100CC/HR,ON LIPID 21ML/HR ,ABDOMINAL WOUND VAC ON PLACE,BAUMANN CATH IN PLACE, KEPT CLEAN AND DRY ALL THE TIME,KEPT HEAD OF THE BED ELEVATED REPOSITIONED AND TURNED EVERY 2 HOURS,ALL NEEDS MET HR 93 BP 111/58 ENDORSE NEXT COMING SHIFT FOR CONTINUATION OF CARE.
--- NOTE | 2022-01-24 19:05 | NUR ---
RN OPENING NOTES RECEIVED PATIENT ON BED, OBTUNDED. PT. ON NASAL CANULA @ 3LPM, SATING AT 100%. RESPIRATORY EVEN AND UNLABORED, NO SOB NOTED. AFEBRILE, NO S/S OF DISTRESS NOTED. WITH SANDOR PICC LINE AND JARETT PICC LINE, PATENT, INTACT, FLUSHED WITH NS. NO S/S OF INFILTRATION NOTED. RUNNING WITH NS @ 100 ML/HR. AMIO DRIP @ 0.5 MG/MIN. LIDOCAINE DRIP @ 1 MG/MIN AND TPN @ 101 ML/HR AND LIPID @ 21ML/HR. WITH WOUND VAC CONNECTED TO ABDOMEN WOUND, DRESSING INTACT, NO LEAK. BAUMANN CATHETER PATENT INTACT DRAINING CLEAR YELLOW URINE VIA GRAVITY. REPOSITION EVERY 2 HRS. ALL SAFETY PRECAUTION PROVIDED, BED IN LOWEST POSITION, LOCKED. BED ALARM ARMED. CALL LIGHT WITH IN REACH. CONTINUE TO MONITOR.
[2022-01-24] MEDS ORDERED: Magnesium 1GM/D5W 100ML PREMIX 100 ML IV SCH (21:00)
[2022-01-25] VITALS (47 sets, daily range): BP systolic 110–161; BP diastolic 54–120
--- NOTE | 2022-01-25 | NUR ---
RN NOTES NOTIFIED RAHEL POSADAS REGARDING PATIENT HAS TPN+TIPID AND IVF NS @ 100 ML/HR. PER SHUT OFF WORKER CUAUHTEMOC KEEP BOTH FLUID.
--- NOTE | 2022-01-25 00:25 | NUR ---
RN NOTES BLOOD SUGAR 109 mg/dL, NO INSULIN COVERAGE PER SLIDING SCALE. NO S/S OF HYPOGLYCEMIA NOTED.
[2022-01-25] MEDS: BLOOD SUGAR DIAGNOSTIC 1 EACH STRIP IN SCH ×4 (00:30→18:03)
[2022-01-25] MEDS: INSULIN REGULAR, HUMAN 100 UNIT/ML 3 ML VIAL SQ PRN ×2 (00:32→06:25)
[2022-01-25] MEDS ORDERED: TPN BAG #18 IV SCH ×2 (02:00)
[2022-01-25] MEDS: IV NS 0.9% 1,000 ML IV PRN ×2 (02:14→19:56)
[2022-01-25 05:06] LABS: BASOPHILS % (AUTO) 0.3 % (0.0-2.0); EOSINOPHILS % (AUTO) 2.7 % (0.0-6.0); HEMATOCRIT 24 % (33-45); HEMOGLOBIN 7.6 g/dL (11.5-14.8); LYMPHOCYTES # (AUTO) 2.1 K/uL (0.8-4.8); LYMPHOCYTES % (AUTO) 17.5 % (20.0-44.0); MEAN CORPUSCULAR HGB CONC 31 g/dl (31.0-36.0); MEAN CORPUSCULAR VOLUME 81 fL (82-100); MONOCYTES # (AUTO) 0.8 K/uL (0.1-1.30); MONOCYTES % (AUTO) 6.7 % (2.0-12.0); NEUTROPHILS # (AUTO) 8.9 K/uL (1.8-8.9); NEUTROPHILS % (AUTO) 72.8 % (43.0-81.0); PLATELET COUNT (AUTO) 345 K/uL (150-450); WHITE BLOOD COUNT (AUTO) 12.2 K/uL (4.3-11.0)
[2022-01-25] MEDS: AMIODARONE 450 MG in IV D5W 241 ML IV PRN ×3 (05:14→19:43)
[2022-01-25 05:18] LABS: ALBUMIN 1.7 g/dL (3.4-5.0); BILIRUBIN,TOTAL 0.2 mg/dL (0.2-1.0); CALCIUM, SERUM 9.4 mg/dL (8.5-10.1); CREATININE 0.6 mg/dL (0.6-1.3); MAGNESIUM 1.9 mg/dL (1.8-2.4); PHOSPHORUS 1.9 mg/dL (2.5-4.9); POTASSIUM 3.1 mmol/L (3.5-5.1)
--- NOTE | 2022-01-25 06:26 | NUR ---
RN NOTES BLOOD SUGAR 100 mg/dL, NO INSULIN COVERAGE PER SLIDING SCALE. NO S/S OF HYPOGLYCEMIA NOTED.
[2022-01-25] MEDS ORDERED: POTASSIUM CL. PREMIX PERIPHER. 50 ML IV SCH ×2 (07:00→11:00)
[2022-01-25] MEDS: VANCOMYCIN HCL 0.75 GM in IV D5W 250 ML IV SCH ×2 (08:03→20:15)
[2022-01-25] MEDS: POTASSIUM CL. PREMIX PERIPHER. 50 ML IV SCH ×6 (08:45→14:17)
[2022-01-25] MEDS: ENOXAPARIN SODIUM 40 MG/0.4 ML DISP.SYRIN SQ SCH (09:00)
[2022-01-25] MEDS: CLOTRIMAZOLE 1% 15 GM TUBE TP SCH ×2 (09:33→17:32)
[2022-01-25] MEDS: LEVETIRACETAM (500MG) 1,500 MG in IV NS 0.9% 100 ML IV SCH ×2 (09:33→21:20)
[2022-01-25] MEDS: CHLORHEXIDINE GLUCONATE 15 ML UDC MM SCH ×2 (09:33→17:32)
--- NOTE | 2022-01-25 09:37 | NUR ---
WOUND CARE FOLLOW UP: PT SEEN FOR WOUND VAC DRESSING CHANGE. ABDOMINAL WOUND MEASURES 7CM X 20.5CM X 2CM WITH AREA OF UNDERMINING AT 7:00 OF 5CM. THERE IS A SUTURE VISIBLE AT LOWER PORTION OF WOUND. COLOR OF WOUND IS RED GRANULATION TISSUE. 350cc ORANGE/RED DRAINAGE IN DISCARDED CANISTER. SKIN PREP AND VAC DRAPE ON PERIWOUND AREAS. WHITE VAC FOAM PLACED OVER SUTURE AND GRANUFOAM TO BALANCE OF WOUND. VAC AT 125mmHg CONTINUOUS SETTING. PT TOLERATED WELL. NEXT DRESSING CHANGE PLANNED FOR January. DISCUSSED WITH NURSING STAFF AND SURGICAL P.A. ON CASE. IN AGREEMENT WITH PLAN OF CARE.
[2022-01-25] MEDS: IV LIDOCAINE HCL/D5W/PF/500ML 2,000 MG in PREMIX 1 EA IV PRN (10:19)
[2022-01-25] MEDS: MEROPENEM 500 MG in IV NS 0.9% 50 ML IV SCH ×2 (11:04→23:20)
[2022-01-25] MEDS ORDERED: TPN BAG #19 IV SCH ×4 (12:00)
[2022-01-25] MEDS: POTASSIUM PHOSPHATE MM 7.5 MMOL in IV NS 0.9% 100 ML IV SCH ×2 (12:03→16:39)
[2022-01-25] MEDS: AMPHOTERICIN B (CONVENTIONAL) 50 MG in WATER FOR INJECTION,STERILE 1,000 ML IR SCH (14:20)
[2022-01-25] MEDS: hydrALAZINE HCL IV 20 MG VIAL IV PRN (17:44)
--- NOTE | 2022-01-25 19:20 | NUR ---
RN OPENING NOTES RECEIVED PATIENT ON BED, A/O X 1. ORIENTED TO NAME. PT. ON NASAL CANULA @ 2LPM, SATING AT 100%. RESPIRATORY EVEN AND UNLABORED, NO SOB NOTED. AFEBRILE, NO S/S OF DISTRESS NOTED. WITH SANDOR PICC LINE AND JARETT PICC LINE, PATENT, INTACT, FLUSHED WITH NS. NO S/S OF INFILTRATION NOTED. RUNNING WITH NS @ 100 ML/HR. AMIO DRIP @ 0.5 MG/MIN. AND TPN @ 101 ML/HR. NOTED WITH ABDOMEN WOUND WITH WOUND VAC CONNECTED DRAINING SEROSANGUINEOUS, DRESSING INTACT, NO LEAK. BAUMANN CATHETER PATENT INTACT DRAINING CLEAR YELLOW URINE VIA GRAVITY. REPOSITION EVERY 2 HRS. ALL SAFETY PRECAUTION PROVIDED, BED IN LOWEST POSITION, LOCKED. BED ALARM ARMED. CALL LIGHT WITH IN REACH. CONTINUE TO MONITOR.
[2022-01-25] MEDS ORDERED: TPN BAG #20 IV SCH ×2 (22:00)
[2022-01-26] VITALS (36 sets, daily range): BP systolic 128–179; BP diastolic 72–131
[2022-01-26] MEDS: BLOOD SUGAR DIAGNOSTIC 1 EACH STRIP IN SCH ×4 (00:25→18:33)
[2022-01-26] MEDS: INSULIN REGULAR, HUMAN 100 UNIT/ML 3 ML VIAL SQ PRN ×2 (00:26→06:12)
--- NOTE | 2022-01-26 00:27 | NUR ---
RN NOTES BLOOD SUGAR 116 mg/dL, NO INSULIN COVERAGE PER SLIDING SCALE. NO S/S OF HYPOGLYCEMIA NOTED.
[2022-01-26] MEDS: IV NS 0.9% 250 ML IV PRN (02:06)
[2022-01-26 03:47] LABS: BASOPHILS % (AUTO) 0.2 % (0.0-2.0); EOSINOPHILS % (AUTO) 2.5 % (0.0-6.0); HEMATOCRIT 25 % (33-45); HEMOGLOBIN 7.9 g/dL (11.5-14.8); LYMPHOCYTES # (AUTO) 2.4 K/uL (0.8-4.8); LYMPHOCYTES % (AUTO) 19.3 % (20.0-44.0); MEAN CORPUSCULAR HGB CONC 31 g/dl (31.0-36.0); MEAN CORPUSCULAR VOLUME 81 fL (82-100); MONOCYTES # (AUTO) 0.8 K/uL (0.1-1.30); MONOCYTES % (AUTO) 6.5 % (2.0-12.0); NEUTROPHILS # (AUTO) 8.8 K/uL (1.8-8.9); NEUTROPHILS % (AUTO) 71.5 % (43.0-81.0); PLATELET COUNT (AUTO) 311 K/uL (150-450); RED BLOOD CELL COUNT(AUTO) 3.13 MIL/uL (4.0-5.2); WHITE BLOOD COUNT (AUTO) 12.3 K/uL (4.3-11.0)
[2022-01-26 03:56] LABS: CALCIUM, SERUM 9.8 mg/dL (8.5-10.1); CREATININE 0.5 mg/dL (0.6-1.3); MAGNESIUM 1.6 mg/dL (1.8-2.4); PHOSPHORUS 2.5 mg/dL (2.5-4.9); POTASSIUM 3.1 mmol/L (3.5-5.1)
--- NOTE | 2022-01-26 06:13 | NUR ---
RN NOTES BLOOD SUGAR 105 mg/dL, NO INSULIN COVERAGE PER SLIDING SCALE. NO S/S OF HYPOGLYCEMIA NOTED.
[2022-01-26] MEDS: IV NS 0.9% 1,000 ML IV PRN ×2 (06:28→21:21)
--- NOTE | 2022-01-26 07:52 | NUR ---
RN NOTE PT RECEIVED IN BED, ON O2 VIA NC @2L, TOLERATING WELL. NO SOB NOTED. WITH EDMOND SOFT WRIST RESTRAINTS ON, NO SS OF CIRCULATORY COMPLICATIONS NOTED. PT WITH AMIO DRIP @ 0.5MG. WITH SINUS TACHY TELE READING. WITH TPN INFUSION RUNNING @100ML/HR. IVF RUNNING NS @100CC/HR. BAUMANN CATH IN PLACE DRAINING WELL. SAFETY MEASURES FOLLOWED. WILL CONTINUE TO MONITOR.
[2022-01-26] MEDS ORDERED: Magnesium 1GM/D5W 100ML PREMIX 100 ML IV SCH (08:00)
[2022-01-26] MEDS ORDERED: TPN BAG #21 IV SCH ×4 (08:00)
[2022-01-26] MEDS: CHLORHEXIDINE GLUCONATE 15 ML UDC MM SCH ×2 (08:32→18:32)
[2022-01-26] MEDS: POTASSIUM CL. PREMIX PERIPHER. 50 ML IV SCH ×10 (08:32→18:23)
[2022-01-26] MEDS: LEVETIRACETAM (500MG) 1,500 MG in IV NS 0.9% 100 ML IV SCH ×2 (08:50→21:22)
[2022-01-26] MEDS: ENOXAPARIN SODIUM 40 MG/0.4 ML DISP.SYRIN SQ SCH (09:00)
[2022-01-26] MEDS: AMIODARONE 450 MG in IV D5W 241 ML IV PRN (09:02)
[2022-01-26] MEDS ORDERED: POTASSIUM CL. PREMIX PERIPHER. 50 ML IV SCH (10:00)
[2022-01-26] MEDS: VANCOMYCIN HCL 0.75 GM in IV D5W 250 ML IV SCH ×2 (10:02→20:27)
[2022-01-26] MEDS: CLOTRIMAZOLE 1% 15 GM TUBE TP SCH ×2 (10:03→18:33)
--- NOTE | 2022-01-26 10:06 | NUR ---
WOUND CARE: VAC FUNCTIONING WELL AT 125mmHgCONTINUOUS SETTING TO ABDOMINAL WOUND WITH PINK/RED DRAINAGE IN CANISTER. NEXT DRESSING CHANGE PLANNED FOR SUNDAY 01/28. DISCUSSED WITH NURSING STAFF.
[2022-01-26] MEDS: MEROPENEM 500 MG in IV NS 0.9% 50 ML IV SCH (11:50)
[2022-01-26] MEDS: AMPHOTERICIN B (CONVENTIONAL) 50 MG in WATER FOR INJECTION,STERILE 1,000 ML IR SCH (13:52)
[2022-01-26] MEDS: FAT EMULSION 20% 500 ML in PREMIX 1 EA IV SCH (15:31)
[2022-01-26] MEDS ORDERED: POTASSIUM PHOSPHATE MM 7.5 MMOL in IV NS 0.9% 100 ML IV SCH (18:00)
[2022-01-26] MEDS ORDERED: TPN BAG #22 IV SCH ×2 (18:00)
--- NOTE | 2022-01-26 19:15 | NUR ---
RN OPENING NOTES RECEIVED PATIENT ON BED, A/O X 1. ORIENTED TO NAME. PT. ON NASAL CANULA @ 2LPM, SATING AT 100%. RESPIRATORY EVEN AND UNLABORED, NO SOB NOTED. AFEBRILE, NO S/S OF DISTRESS NOTED. WITH SANDOR PICC LINE AND JARETT PICC LINE, PATENT, INTACT, FLUSHED WITH NS. NO S/S OF INFILTRATION NOTED. RUNNING WITH NS @ 100 ML/HR. TPN @ 10 ML/HR, LIPIDS @ 21ML/HR. AMPHOTERICIN B CONNECTED TO 3-WAY BAUMANN CATHETER FOR CONTINUOS BLADDER IRRIGATION. NOTED WITH ABDOMEN WOUND WITH WOUND VAC CONNECTED DRAINING SEROSANGUINEOUS, DRESSING INTACT, NO LEAK. BAUMANN CATHETER PATENT INTACT DRAINING CLEAR YELLOW URINE VIA GRAVITY. REPOSITION PATIENT EVERY 2 HRS. ALL SAFETY PRECAUTION PROVIDED, BED IN LOWEST POSITION, LOCKED. BED ALARM ARMED. CALL LIGHT WITH IN REACH. CONTINUE TO MONITOR.
--- NOTE | 2022-01-26 19:57 | NUR ---
RN NOTE PT LYING IN BED, ON O2 VIA NC @2L, TOLERATING WELL. NO SOB NOTED. WITH EDMOND SOFT WRIST RESTRAINTS ON, NO SS OF CIRCULATORY COMPLICATIONS NOTED. PT POST AMIO DRIP. SINUS TACHY WITH PVC TELE READING. WITH TPN INFUSION RUNNING @100ML/HR. IVF RUNNING NS @100CC/HR. BAUMANN CATH IN PLACE DRAINING WELL. SAFETY MEASURES FOLLOWED. DUE MEDICATIONS GIVEN, AM AND PM CARE DONE. WILL CONTINUE TO MONITOR.
--- NOTE | 2022-01-26 20:00 | NUR ---
RN NOTES CHANGED BAUMANN CATHETER TO 3-WAY CATHETER FOR BLADDER IRRIGATION.
[2022-01-26] MEDS: Magnesium 1GM/D5W 100ML PREMIX 100 ML IV SCH ×3 (21:22→23:27)
[2022-01-27] VITALS (28 sets, daily range): BP systolic 83–169; BP diastolic 19–103
[2022-01-27] MEDS: BLOOD SUGAR DIAGNOSTIC 1 EACH STRIP IN SCH ×4 (00:06→18:23)
[2022-01-27] MEDS: INSULIN REGULAR, HUMAN 100 UNIT/ML 3 ML VIAL SQ PRN ×2 (00:10→06:06)
[2022-01-27 03:51] LABS: BASOPHILS % (AUTO) 0.3 % (0.0-2.0); EOSINOPHILS % (AUTO) 3.7 % (0.0-6.0); HEMATOCRIT 25 % (33-45); HEMOGLOBIN 7.8 g/dL (11.5-14.8); LYMPHOCYTES # (AUTO) 2.3 K/uL (0.8-4.8); LYMPHOCYTES % (AUTO) 17.8 % (20.0-44.0); MEAN CORPUSCULAR HGB CONC 32 g/dl (31.0-36.0); MEAN CORPUSCULAR VOLUME 80 fL (82-100); MONOCYTES # (AUTO) 0.9 K/uL (0.1-1.30); MONOCYTES % (AUTO) 6.9 % (2.0-12.0); NEUTROPHILS # (AUTO) 9.1 K/uL (1.8-8.9); NEUTROPHILS % (AUTO) 71.3 % (43.0-81.0); PLATELET COUNT (AUTO) 341 K/uL (150-450); RED BLOOD CELL COUNT(AUTO) 3.07 MIL/uL (4.0-5.2); WHITE BLOOD COUNT (AUTO) 12.8 K/uL (4.3-11.0)
[2022-01-27] MEDS ORDERED: TPN BAG #23 IV SCH ×4 (04:00→12:00)
[2022-01-27 04:09] LABS: ALBUMIN 1.6 g/dL (3.4-5.0); BILIRUBIN,TOTAL 0.2 mg/dL (0.2-1.0); CALCIUM, SERUM 9.3 mg/dL (8.5-10.1); CREATININE 0.5 mg/dL (0.6-1.3); MAGNESIUM 2.1 mg/dL (1.8-2.4); PHOSPHORUS 2.5 mg/dL (2.5-4.9); POTASSIUM 3.5 mmol/L (3.5-5.1); TOTAL PROTEIN, SERUM 5.7 g/dL (6.4-8.2)
[2022-01-27] MEDS: hydrALAZINE HCL IV 20 MG VIAL IV PRN (05:35)
--- NOTE | 2022-01-27 05:37 | NUR ---
RN NOTES PATIENT NOTED WITH BP- 169/103, PULSE-107, HYDRALAZINE 10MG IV GIVEN.
--- NOTE | 2022-01-27 06:00 | NUR ---
RN NOTES BP RECHECKED- 115/60.
--- NOTE | 2022-01-27 06:07 | NUR ---
RN NOTES BLOOD SUGAR 107 mg/dL, NO INSULIN COVERAGE PER SLIDING SCALE. NO S/S OF HYPOGLYCEMIA NOTED.
[2022-01-27] MEDS: LEVETIRACETAM (500MG) 1,500 MG in IV NS 0.9% 100 ML IV SCH ×2 (08:50→21:18)
[2022-01-27] MEDS: VANCOMYCIN HCL 0.75 GM in IV D5W 250 ML IV SCH ×2 (08:50→20:36)
[2022-01-27] MEDS: CHLORHEXIDINE GLUCONATE 15 ML UDC MM SCH ×2 (08:50→18:23)
[2022-01-27] MEDS: ENOXAPARIN SODIUM 40 MG/0.4 ML DISP.SYRIN SQ SCH (09:00)
[2022-01-27] MEDS: IV NS 0.9% 1,000 ML IV PRN ×2 (09:36→21:10)
[2022-01-27] MEDS: CLOTRIMAZOLE 1% 15 GM TUBE TP SCH ×2 (10:00→17:00)
[2022-01-27] MEDS: POTASSIUM CL. PREMIX PERIPHER. 50 ML IV SCH ×8 (10:43→23:30)
[2022-01-27] MEDS: AMPHOTERICIN B (CONVENTIONAL) 50 MG in WATER FOR INJECTION,STERILE 1,000 ML IR SCH (13:52)
[2022-01-27] MEDS ORDERED: TPN BAG #24 IV SCH ×4 (14:00)
[2022-01-27] MEDS ORDERED: POTASSIUM PHOSPHATE MM 7.5 MMOL in IV NS 0.9% 100 ML IV SCH (17:00)
[2022-01-27] MEDS ORDERED: POTASSIUM CL. PREMIX PERIPHER. 50 ML IV SCH (18:30)
--- NOTE | 2022-01-27 18:56 | NUR ---
RN NOTE TRANSFERRED TO MS FOR ZI. GAVE REPORT ON MENDY BELL.
--- NOTE | 2022-01-27 19:00 | NUR ---
RN NOTE- TRANSFER FROM ICU. OBTAIN IV PUMPS , BEGIN ADMIT PROCESS
--- NOTE | 2022-01-27 19:30 | NUR ---
CONTINUITY OF CARE Patient awake, nonverbal. Confused. Skin checked done, new skin photo placed in the chart. Patient on Oxygen at 2L NC. Right hand with soft wrist restraint, trial released, no skin injury under restraint, patient attempted to remove IV lines. Urinary warner cath to gravity, on bladder irrigation. Turned and repositioned, made comfortable in bed. Patient transferred from ICU per report, IV abx/Mag/K/Phos at behind schedule of administration during transferred to unit. Patient with PICC/MIDLINE. Abdomen presence of wound vac with serous drainage. Will cont to provide care.
[2022-01-27] MEDS: Magnesium 1GM/D5W 100ML PREMIX 100 ML IV SCH ×2 (21:49→22:57)
--- NOTE | 2022-01-27 23:30 | NUR ---
RESTRAINT RENEWED Patient still trying to removed IV lines. RUE strong, CSM intact. LUE flaccid, unable to move. Right hand soft wrist restraint renewed.
--- NOTE | 2022-01-27 23:44 | NUR ---
DC IVF at 100ml/hr Patient on TPN at 101ml/hr. Patient received Total volume 2000 ml from ICU as ordered. Clarified IVF NS at 100ml/hr. Spoke with RAHEL Bentley with order to dc IVF NS at 100ml/hr. Will cont to monitor patient closely.
[2022-01-28] VITALS: BP 129/59
[2022-01-28] MEDS ORDERED: TPN BAG #25 IV SCH ×2
[2022-01-28] MEDS: BLOOD SUGAR DIAGNOSTIC 1 EACH STRIP IN SCH ×5 (00:17→23:55)
[2022-01-28] MEDS: INSULIN REGULAR, HUMAN 100 UNIT/ML 3 ML VIAL SQ PRN ×3 (00:19→23:57)
--- NOTE | 2022-01-28 00:20 | NUR ---
ACCU CHECK Bld glucose 134mg/dl. Given 2 units per SS parameters, co-signed by MENDY SCHULTZ.
--- NOTE | 2022-01-28 00:22 | NUR ---
MAGNESIUM SUPPLEMENTED Magnesium 2gm IV completed, total volume 200ml infused.
--- NOTE | 2022-01-28 00:40 | NUR ---
TPN BAG #25 IV TPN bag #25 verified with 2 RNs, co-signed by MENDY RODRÍGUEZ. TPN infusing at 100ml/hr. Will cont to monitor patient.
[2022-01-28] MEDS: POTASSIUM CL. PREMIX PERIPHER. 50 ML IV SCH ×6 (00:51→19:38)
--- NOTE | 2022-01-28 03:10 | NUR ---
POTASSIUM SUPPLEMENTED Potassium Chloride 10meq IV completed, total volume 200ml infused.
[2022-01-28 04:00] VITALS: BP 157/72
[2022-01-28] MEDS: IV NS 0.9% 250 ML IV PRN (05:48)
--- NOTE | 2022-01-28 06:39 | NUR ---
ACCU CHECK Bld glucose 98mg/dl. Held insulin per level ordered.
[2022-01-28 07:17] LABS: BASOPHILS % (AUTO) 0.2 % (0.0-2.0); EOSINOPHILS % (AUTO) 5.1 % (0.0-6.0); HEMATOCRIT 26 % (33-45); LYMPHOCYTES # (AUTO) 2.6 K/uL (0.8-4.8); LYMPHOCYTES % (AUTO) 24.7 % (20.0-44.0); MEAN CORPUSCULAR HGB CONC 31 g/dl (31.0-36.0); MEAN CORPUSCULAR VOLUME 80 fL (82-100); MONOCYTES # (AUTO) 0.6 K/uL (0.1-1.30); MONOCYTES % (AUTO) 5.6 % (2.0-12.0); NEUTROPHILS # (AUTO) 6.7 K/uL (1.8-8.9); NEUTROPHILS % (AUTO) 64.4 % (43.0-81.0); PLATELET COUNT (AUTO) 326 K/uL (150-450); RED BLOOD CELL COUNT(AUTO) 3.22 MIL/uL (4.0-5.2); WHITE BLOOD COUNT (AUTO) 10.4 K/uL (4.3-11.0)
--- NOTE | 2022-01-28 07:25 | NUR ---
ms rn received on bed, awake,non verbal patient,bilateral picc line to both upper arm intact, three way warner catheter intact w/ atb infusing, abdominal wound w/ wound vac draining to serousanguinous output. repositioned for comfort,all needs attended.
--- NOTE | 2022-01-28 07:41 | NUR ---
WOUND CARE CONSULT: PT SEEN FOR PINK AREA AT TOP OF LEFT EAR, NO DRAINAGE, ERYTHEMA OR TENDERNESS NOTED. PT ALSO SEEN FOR OPEN AREA TO SACRUM WITH SCARRING. PT IS INCONTINENT OF STOOL. LEFT HEEL DISCOLORATION NOTED WITH CALLUS. RECOMMENDATIONS MADE FOR SKIN PROTECTION. DISCUSSED WITH NURSING STAFF AND WITH SURGICAL P.A. CURRENTLY ON CASE. PLAN TO CHANGE WOUND VAC DRESSING TODAY. PT IS ON RASTA ISOFLEX LOW AIRLOSS BED. IN AGREEMENT WITH PLAN OF CARE.
[2022-01-28 07:47] LABS: CALCIUM, SERUM 9.7 mg/dL (8.5-10.1); CREATININE 0.6 mg/dL (0.6-1.3); MAGNESIUM 1.8 mg/dL (1.8-2.4); PHOSPHORUS 3.4 mg/dL (2.5-4.9); POTASSIUM 3.9 mmol/L (3.5-5.1)
[2022-01-28] MEDS: CHLORHEXIDINE GLUCONATE 15 ML UDC MM SCH ×2 (08:22→17:37)
[2022-01-28] MEDS: MORPHINE SULFATE INJ 2 MG/ML DISP.SYRIN IV PRN ×2 (08:23→20:40)
[2022-01-28] MEDS: VANCOMYCIN HCL 0.75 GM in IV D5W 250 ML IV SCH ×2 (08:24→20:23)
[2022-01-28] MEDS: ENOXAPARIN SODIUM 40 MG/0.4 ML DISP.SYRIN SQ SCH (08:25)
[2022-01-28] MEDS: LEVETIRACETAM (500MG) 1,500 MG in IV NS 0.9% 100 ML IV SCH ×2 (08:34→21:43)
[2022-01-28 08:37] VITALS: BP 146/83
[2022-01-28] MEDS: CLOTRIMAZOLE 1% 15 GM TUBE TP SCH ×2 (09:00→17:00)
[2022-01-28] MEDS: FLUCONAZOLE IN NS 100 MG in PREMIX 1 EA IV SCH ×2 (09:40)
--- NOTE | 2022-01-28 09:44 | NUR ---
WOUND CARE: VAC DRESSING CHANGED FOR ABDOMINAL WOUND. SKIN PREP AND VAC DRAPE USED FOR PERIWOUND SKIN PROTECTION. WHITE FOAM USED TO COVER SUTURE AND GRANUFOAM USED WELL. VAC AT 125mmHg CONTINUOUS SETTING. PT TOLERATED WELL. PINK/RED GRANULATION TISSUE NOTED. 325cc PINK/RED DRAINAGE IN DISCARDED CANISTER. NEXT DRESSING CHANGE PLANNED FOR THURSDAY 02/01.
[2022-01-28] MEDS ORDERED: TPN BAG #26 IV SCH ×4 (10:00)
[2022-01-28 11:52] VITALS: BP 144/64
[2022-01-28] MEDS: AMPHOTERICIN B (CONVENTIONAL) 50 MG in WATER FOR INJECTION,STERILE 1,000 ML IR SCH (13:22)
[2022-01-28] MEDS: Magnesium 1GM/D5W 100ML PREMIX 100 ML IV SCH ×2 (13:22→14:21)
[2022-01-28] MEDS: FAT EMULSION 20% 500 ML in PREMIX 1 EA IV SCH (14:44)
--- NOTE | 2022-01-28 16:00 | NUR ---
ms rn check patient, no distress noted.
[2022-01-28 16:04] VITALS: BP 168/98
--- NOTE | 2022-01-28 19:00 | NUR ---
ms rn on bed, no distress noted,all needs attended.
[2022-01-28 20:00] VITALS: BP 145/85
[2022-01-28] MEDS ORDERED: TPN BAG #27 IV SCH ×2 (20:00)
--- NOTE | 2022-01-28 20:21 | NUR ---
PHARMACY SALESPERSON NOTE TPN NOT AVAILABLE ON FLOOR, CHECKED FRIDGE AND CASSETTE AND MEDICATION NOT THERE, CALLED PHARMACY WHO STATED THEY WILL BRING MEDICATION
--- NOTE | 2022-01-28 20:40 | NUR ---
SIGN HANGER SUPERVISOR NOTE PATIENT RESTLESS, MOVING A LOT IN BED, APPEARS IN PAIN. MORPHINE 2 MG IV GIVEN ORDERED, VITAL SIGNS WNL. WILL CONTINUE TO MONITOR
--- NOTE | 2022-01-28 21:20 | NUR ---
MACHINE II COREMAKER OPENING NOTE PATIENT IN BED WITH EYES OPEN, PT NON-VERBAL, CONFUSED. PATIENT STABLE ON RA, NO S/S OF DISTRESS OR SOB NOTED, BREATHING EVEN AND UNLABORED. PATIENT ON EXTERNAL PLANT WORKER READING SINUS TACHY WITH BORDERLINE 1ST DEGREE BLOCK, HR: 112. SANDOR PICC LINE INTACT AND INFUSING TPN @ 100 ML/HR WELL LIPIDS @ 21 ML/HR. JARETT PICC LINE INTACT AND INFUSING POTASSIUM @ 50 ML/HR. BAUMANN CATHETER INTACT AND DRAINING YELLOW URINE TO GRAVITY WITH BLADDER IRRIGATION. WOUND VAC CONNECTED TO ABDOMEN, DRESSING CHANGED TODAY BY WOUND CARE NURSE PER REPORT, DRESSING C/D/I. RIGHT WRIST RESTRAINT IN PLACE D/T PATIENT PULLING LINES. SAFETY MEASURES IN PLACE: CALL LIGHT WITHIN REACH, SIDE RAILS UP X 3, BED LOCKED IN LOWEST POSITION, HOB ELEVATED, BED ALARM ON. WILL CONTINUE TO MONITOR PATIENT
[2022-01-29] VITALS: BP 157/84
[2022-01-29 05:00] VITALS: BP 161/92
[2022-01-29] MEDS: MORPHINE SULFATE INJ 2 MG/ML DISP.SYRIN IV PRN ×2 (05:04→10:12)
--- NOTE | 2022-01-29 05:04 | NUR ---
HANDLE BAR ASSEMBLER NOTE PATIENT APPEARS IN PAIN, VERY RESTLESS, THRASHING IN BED, MOANING, BP ELEVATED. MORPHINE 2 MG IV GIVEN ORDERED. WILL CONTINUE TO MONITOR PATIENT
[2022-01-29] MEDS: BLOOD SUGAR DIAGNOSTIC 1 EACH STRIP IN SCH ×3 (05:37→17:21)
[2022-01-29] MEDS ORDERED: TPN BAG #28 IV SCH ×2 (06:00)
--- NOTE | 2022-01-29 06:43 | NUR ---
DINING ROOM HOST CLOSING NOTE PATIENT IN BED WITH EYES CLOSED, PT NON-VERBAL, CONFUSED. PATIENT STABLE ON RA, NO S/S OF DISTRESS OR SOB NOTED, BREATHING EVEN AND UNLABORED. PATIENT ON EXTERNAL LOCK FITTER READING SINUS TACHY WITH PVC'S & 1ST DEGREE BLOCK, HR:108. SANDOR PICC LINE INTACT AND INFUSING TPN @ 100 ML/HR WELL LIPIDS @ 21 ML/HR. JARETT PICC LINE INTACT AND SALINE LOCKED. BAUMANN CATHETER INTACT AND DRAINING YELLOW URINE TO GRAVITY, WITH BLADDER IRRIGATION. WOUND VAC CONNECTED TO ABDOMEN, DRESSING C/D/I, OUTPUT 50 ML. RIGHT WRIST RESTRAINT IN PLACE D/T PATIENT PULLING LINES. MEDICATIONS GIVEN ORDERED, PT NEEDS MET THROUGHOUT SHIFT, PATIENT TURNED Q2H, SACRAL WOUND CARE DONE. SAFETY MEASURES IN PLACE: CALL LIGHT WITHIN REACH, SIDE RAILS UP X 3, BED LOCKED IN LOWEST POSITION, HOB ELEVATED, BED ALARM ON. WILL ENDORSE TO DAYSHIFT NURSE FOR CONTINUITY OF CARE
[2022-01-29 06:50] LABS: BASOPHILS % (AUTO) 0.6 % (0.0-2.0); EOSINOPHILS % (AUTO) 6.4 % (0.0-6.0); HEMATOCRIT 26 % (33-45); HEMOGLOBIN 8.3 g/dL (11.5-14.8); LYMPHOCYTES # (AUTO) 2.4 K/uL (0.8-4.8); LYMPHOCYTES % (AUTO) 26.8 % (20.0-44.0); MEAN CORPUSCULAR HGB CONC 32 g/dl (31.0-36.0); MEAN CORPUSCULAR VOLUME 79 fL (82-100); MONOCYTES # (AUTO) 0.7 K/uL (0.1-1.30); MONOCYTES % (AUTO) 7.4 % (2.0-12.0); NEUTROPHILS # (AUTO) 5.3 K/uL (1.8-8.9); NEUTROPHILS % (AUTO) 58.8 % (43.0-81.0); PLATELET COUNT (AUTO) 381 K/uL (150-450); RED BLOOD CELL COUNT(AUTO) 3.31 MIL/uL (4.0-5.2)
[2022-01-29 07:12] LABS: CALCIUM, SERUM 9.9 mg/dL (8.5-10.1); CREATININE 0.5 mg/dL (0.6-1.3); MAGNESIUM 1.7 mg/dL (1.8-2.4); PHOSPHORUS 3.9 mg/dL (2.5-4.9); POTASSIUM 3.6 mmol/L (3.5-5.1)
--- NOTE | 2022-01-29 07:15 | NUR ---
ms rn received on bed,sleeping, non verbal patient,came w/ sepsis, on iv atb, lipid and tpn running at this time, 3 way warner cath intact but leaking, wound vac intact w/ serousaguinous, output. will monitor patient.
[2022-01-29 08:21] VITALS: BP 143/96
[2022-01-29] MEDS ORDERED: CLONIDINE HCL 0.3 MG/24H PTWK 1 EA PATCH TD SCH (08:30)
--- NOTE | 2022-01-29 09:00 | NUR ---
ms r due meds given, will be d/c today.
[2022-01-29] MEDS ORDERED: CLON0.3P TD (09:09)
[2022-01-29] MEDS ORDERED: FLUC200P12 IV (09:09)
[2022-01-29] MEDS ORDERED: VANC750F2 IV (09:09)
[2022-01-29] MEDS ORDERED: LEVE500V2 IV (09:09)
--- NOTE | 2022-01-29 09:35 | NUR ---
ms rn due meds given, tolerated well.
[2022-01-29] MEDS: VANCOMYCIN HCL 0.75 GM in IV D5W 250 ML IV SCH (09:40)
[2022-01-29] MEDS: LEVETIRACETAM (500MG) 1,500 MG in IV NS 0.9% 100 ML IV SCH (09:41)
[2022-01-29] MEDS: FLUCONAZOLE IN NS 100 MG in PREMIX 1 EA IV SCH ×4 (09:44→13:26)
--- NOTE | 2022-01-29 10:00 | NUR ---
ms rn was seen by dr. lo w/ order to be [facility].
[2022-01-29] MEDS: CHLORHEXIDINE GLUCONATE 15 ML UDC MM SCH ×2 (10:12→17:19)
[2022-01-29] MEDS: ENOXAPARIN SODIUM 40 MG/0.4 ML DISP.SYRIN SQ SCH (10:15)
[2022-01-29] MEDS: CLOTRIMAZOLE 1% 15 GM TUBE TP SCH ×2 (10:17→17:21)
[2022-01-29] MEDS: Magnesium 1GM/D5W 100ML PREMIX 100 ML IV SCH ×2 (11:20→13:22)
[2022-01-29] MEDS: AMPHOTERICIN B (CONVENTIONAL) 50 MG in WATER FOR INJECTION,STERILE 1,000 ML IR SCH (13:00)
[2022-01-29] MEDS: POTASSIUM CL. PREMIX PERIPHER. 50 ML IV SCH ×4 (13:24→18:39)
[2022-01-29 13:25] VITALS: BP 172/94
[2022-01-29] MEDS ORDERED: TPN BAG #29 IV SCH ×4 (16:00)
[2022-01-29 16:10] VITALS: BP 143/71
[2022-01-29] MEDS ORDERED: Magnesium 1GM/D5W 100ML PREMIX 100 ML IV SCH ×2 (21:00→22:00)
[2022-01-29] MEDS ORDERED: POTASSIUM CL. PREMIX PERIPHER. 50 ML IV SCH (22:00)
[2022-01-30] MEDS ORDERED: TPN BAG #30 IV SCH ×2 (02:00)
[2022-01-30] MEDS ORDERED: TPN BAG #31 IV SCH ×4 (12:00)
[2022-01-30] MEDS ORDERED: TPN BAG #32 IV SCH ×2 (22:00)
== END 2022-01-29 19:00 | DRG 853 ==
LOC: ER 17:51 → TELE 21:58 → TELE1 22:14 → ICU 01-23 07:02 → TELE 01-27 16:46
PROVIDERS: ADMIT Internal Medicine; ATTEND Internal Medicine
PROC: 0KBL0ZZ Excision of Left Abdomen Muscle, Open Approach (ICD-10-PCS; principal; 2022-01-20)
PROC: 0KBK0ZZ Excision of Right Abdomen Muscle, Open Approach (ICD-10-PCS; 2022-01-20)
PROC: 02HV33Z Insertion of Infusion Device into Superior Vena Cava, Percutaneous Approach (ICD-10-PCS; 2022-01-24)
PROC: B548ZZA Ultrasonography of Superior Vena Cava, Guidance (ICD-10-PCS; 2022-01-24)
PROC: 5A2204Z Restoration of Cardiac Rhythm, Single (ICD-10-PCS; 2022-01-24)
DX: A41.02 Sepsis due to Methicillin resistant Staphylococcus aureus (principal); E43 Unspecified severe protein-calorie malnutrition; I21.A1 Myocardial infarction type 2; E87.1 Hypo-osmolality and hyponatremia; I50.22 Chronic systolic (congestive) heart failure; L02.211 Cutaneous abscess of abdominal wall; G93.49 Other encephalopathy; B37.49 Other urogenital candidiasis; I47.20 Ventricular tachycardia, unspecified; J21.9 Acute bronchiolitis, unspecified; R65.20 Severe sepsis without septic shock; F03.90 Unspecified dementia, unspecified severity, without behavioral disturbance, psychotic disturbance, mood disturbance, and anxiety; Z86.73 Personal history of transient ischemic attack (TIA), and cerebral infarction without residual deficits; Z20.822 Contact with and (suspected) exposure to COVID-19; I11.0 Hypertensive heart disease with heart failure; E11.9 Type 2 diabetes mellitus without complications; I25.10 Atherosclerotic heart disease of native coronary artery without angina pectoris; F25.9 Schizoaffective disorder, unspecified; Z79.4 Long term (current) use of insulin; F44.4 Conversion disorder with motor symptom or deficit; Z79.01 Long term (current) use of anticoagulants; Z79.82 Long term (current) use of aspirin; Z79.899 Other long term (current) drug therapy; R13.10 Dysphagia, unspecified; K62.89 Other specified diseases of anus and rectum; D63.8 Anemia in other chronic diseases classified elsewhere; R56.9 Unspecified convulsions; E88.09 Other disorders of plasma-protein metabolism, not elsewhere classified; E83.39 Other disorders of phosphorus metabolism; E83.42 Hypomagnesemia; E87.5 Hyperkalemia; E87.6 Hypokalemia; I48.91 Unspecified atrial fibrillation; Z93.1 Gastrostomy status; L89.626 Pressure-induced deep tissue damage of left heel
CPT/HCPCS: 36415; 36569; 36600; 71045-TC; 80048-TC; 80053-TC; 80061-TC; 80076-TC; 80202-TC; 81001; 82803-TC; 82962-TC; 83605-TC; 83735-TC; 84100-TC; 84134-TC; 84478-TC; 84484-TC; 85025-TC; 85730-TC; 87040-TC; 87081-TC; 87086-TC; 93307-TC; 94799-TC; A4216; A4217; A6253; C9803; G0378; J0282; J0285; J0360; J0692; J1450; J1650; J1815; J1953; J2001; J2185; J2250; J2270; J2370; J3370; J3475; J3480; J3490; J7030; J7040; J7050; J7060; Q9967

== ENCOUNTER 2022-02-16 18:54 | Inpatient (IN) | payer MEDICARE, OTHER ==
[~2022-02-16] VITALS: Ht 165.1 cm; Wt 71.7 kg
[~2022-02-16 18:54] MED LIST changes: -ACET-868 GT; -ASPI-1169 GT; -ATOR20TA GT; +CLON0.3P TD; +FLUC200P12 IV; -LEVE500T9 GT; +LEVE500V2 IV; -LISI20TA30 GT; +VANC750F2 IV; -[UNRECOGNIZED DRUG - CODE] GT
[2022-02-16] MEDS ORDERED: ACET650S11 RC (19:37)
[2022-02-16] MEDS ORDERED: NA P133E RC (19:37)
[2022-02-16] MEDS ORDERED: VANC1VIA4 IV (19:37)
[2022-02-16] MEDS ORDERED: BISA10SU11 RC (19:37)
[2022-02-16] MEDS ORDERED: MORP2VIA IV (19:37)
[2022-02-16] MEDS ORDERED: PIPE3.379 IV (19:37)
[2022-02-16] MEDS ORDERED: ALLA266C2 TP (19:37)
[2022-02-16] MEDS ORDERED: POVI3780 TP (19:37)
[2022-02-16] MEDS ORDERED: CLON0.3P TD (19:37)
--- NOTE | 2022-02-16 19:41 | NUR ---
JOSE YANCEY from [facility] "Chills/weakness/sepsis BS 145. PATIENT IS AAOX1. CAME WITH PICC LINE ON BILATERAL UPPER ARMS. BOTH LINE FLUSHED AND PATENT. CAME WITH SURGICAL WOUND AT THE ABDOMEN WITH DRESSING. ATTACHED TO MONITOR. VITALS CHECKED.
[2022-02-16] MEDS ORDERED: IV NS 0.9% 1,000 ML BAG IV ONE (21:00)
[2022-02-16] MEDS ORDERED: VANCOMYCIN 1 GM in IV D5W 250 ML IV ONE (21:00)
[2022-02-16] MEDS ORDERED: PIPERACILLIN /TAZOBACTAM 3.375 G in IV D5W 50 ML IV ONE (21:00)
--- NOTE | 2022-02-16 21:15 | NUR ---
LAB AT BEDSIDE
[2022-02-16] MEDS ORDERED: PIPERACILLIN /TAZOBACTAM 3.375 G VIAL IV ONE (21:17)
[2022-02-16] MEDS ORDERED: VANCOMYCIN 1 GM VIAL ONE (21:57)
[2022-02-16] MEDS ORDERED: IOHEXOL-300 100 ML VIAL IV ONE (21:58)
[2022-02-16] MEDS ORDERED: IV NS 0.9% 250 ML IV ONE (21:58)
[2022-02-16 22:03] LABS: CALCIUM, SERUM 10.2 mg/dL (8.5-10.1); CARBON DIOXIDE 14 mmol/L (21-32); CHLORIDE 119 mmol/L (98-107); CREATININE 1.2 mg/dL (0.6-1.3); GLUCOSE 91 mg/dL (74-106); POTASSIUM 3.7 mmol/L (3.5-5.1); SODIUM SERUM 146 mmol/L (136-145); UREA NITROGEN, BLOOD 29 mg/dL (7-18)
[2022-02-16 22:16] LABS: ALANINE AMINOTRANSFERASE 58 U/L (12-78); ALBUMIN 1.7 g/dL (3.4-5.0); ALKALINE PHOSPHATASE 279 U/L (46-116); ASPARTATE AMINOTRANSFERASE 39 U/L (15-37); BILIRUBIN,DIRECT 0.6 mg/dL (0.0-0.2); BILIRUBIN,TOTAL 0.9 mg/dL (0.2-1.0); TOTAL PROTEIN, SERUM 7.1 g/dL (6.4-8.2)
--- NOTE | 2022-02-16 22:25 | NUR ---
BROUGHT TO CT DEPT
[2022-02-16 23:13] LABS: BASOPHILS % (AUTO) 0.1 % (0.0-2.0); HEMATOCRIT 21 % (33-45); LYMPHOCYTES # (AUTO) 1.4 K/uL (0.8-4.8); MEAN CORPUSCULAR HGB CONC 31 g/dl (31.0-36.0); MEAN CORPUSCULAR VOLUME 73 fL (82-100); MONOCYTES # (AUTO) 1.2 K/uL (0.1-1.30); MONOCYTES % (AUTO) 5.5 % (2.0-12.0); NEUTROPHILS % (AUTO) 87.4 % (43.0-81.0); PLATELET COUNT (AUTO) 107 K/uL (150-450); RED BLOOD CELL COUNT(AUTO) 2.88 MIL/uL (4.0-5.2); WHITE BLOOD COUNT (AUTO) 22.8 K/uL (4.3-11.0)
[2022-02-16 23:24] LABS: HEMOGLOBIN 6.5 g/dL (11.5-14.8)
--- NOTE | 2022-02-16 23:26 | NUR ---
HGB 6.5
--- NOTE | 2022-02-16 23:34 | NUR ---
COVID SWAB AND INFLUENZA SWAB DONE AND SENT TO LAB
--- NOTE | 2022-02-16 23:47 | NUR ---
URINE SPECIMEN SENT TO LAB
[2022-02-17] VITALS (12 sets, daily range): BP systolic 95–124; BP diastolic 52–88
[2022-02-17] MEDS ORDERED: Z GUARD REMEDY 4 OZ OINT TP PRN
[2022-02-17] MEDS ORDERED: ONDANSETRON HCL/PF 4 MG/2 ML VIAL IVP PRN
--- NOTE | 2022-02-17 | NUR ---
CALLED FAMILY MEMBER. DAUGHTER TIMBO. LEFT VM TO GIVE US A CALL SO I CAN GET CONSENT FOR BT. WAITING FOR RESPONSE.
[2022-02-17 00:06] LABS: BILIRUBIN,URINE NEGATIVE (NEGATIVE); COLOR,URINE YELLOW (YELLOW); LEUKOCYTE ESTERASE ,URINE NEGATIVE (NEGATIVE); NITRITE, URINE NEGATIVE (NEGATIVE); PH,URINE 5.5 (5.0-8.0); PROTEIN,URINE 30 mg/dl (NEGATIVE); UGLUCOSE NEGATIVE (NEGATIVE)
--- NOTE | 2022-02-17 00:10 | NUR ---
PT FOR BLOOD TRANSFUSION. DAUGHTER MATT GAVE TELEPHONE CONSENT FOR THE BT WITNESSED BY MENDY Lau AND MENDY MONTEJO. DR LIMA MADE AWARE.
[2022-02-17 00:11] LABS: BACTERIA,URINE Rare /HPF (None Seen); RBC,URINE 0-2 /HPF (0-2); SQUAMOUS EPITHELIAL CELL,UR Many /HPF (None Seen)
[2022-02-17] MEDS ORDERED: DEXTROSE 50%-WATER 50 ML DISP.SYRIN IV PRN (00:30)
--- NOTE | 2022-02-17 01:05 | NUR ---
REPORT GIVEN TO KENNY OCHOA.
[2022-02-17 01:27] LABS: BASOPHILS % (MANUAL) 0 % (0.0-2.0); EOSINOPHILS % (MANUAL) 1 % (0-4); LYMPHOCYTES % (MANUAL) 9 % (16-48); MONOCYTES % (MANUAL) 6 % (0-11.0); NEUTROPHILS % (MANUAL) 84 (42-76)
--- NOTE | 2022-02-17 01:36 | NUR ---
TRANSFERRED PT TO ROOM VIA BED
[2022-02-17] MEDS: PANTOPRAZOLE 40 MG VIAL IV SCH ×3 (02:31→21:31)
[2022-02-17] MEDS: IV D5/0.45 NACL 1,000 ML IV PRN ×2 (02:32→21:38)
--- NOTE | 2022-02-17 03:00 | NUR ---
RN NOTE 0130 ADMITTED PT WITH DIAGNOSIS OF SEPSIS WITH INFECTED ABDOMINAL WOUND. PT OPEN EYES, NONVERBAL, DOES NOT FOLLOW ANY COMMANDS. NO SIGNS OF DISTRESS NOTED. HOOKED TO TELE MONITOR SHOWS SINUS TACH WITH HR 109. AFEBRILE. NOTED WITH WOUND ON ABDOMEN, DTI ON EDMOND HEELS, WILL DO WOUND CONSULT. SANDOR PICC WITH 2LUMEN AND JARETT PICC TRIPLE LUMEN PATENT AND INTACT, FLUSHING WELL. PT WITH PENDING BLOOD TRANSFUSION, SCREEN AND TYPE STILL IN PROCESS PER BLOOD BANK. NO ACTIVE BLEEDING NOTED. PT TO BE NPO. DUE MED AND IVF D51/2 NS STARTED ORDERED. ALL SAFETY MEASURES IMPLEMENTED PER PROTOCOL. WILL CONTINUE TO MONITOR.
[2022-02-17] MEDS ORDERED: PIPERACILLIN /TAZOBACTAM 3.375 G in IV D5W 50 ML IV SCH ×4 (05:00)
[2022-02-17] MEDS ORDERED: PIPERACILLIN /TAZOBACTAM 3.375 G VIAL IV ONE (05:26)
--- NOTE | 2022-02-17 05:35 | NUR ---
RN NOTE ONGOING PRBC BLOOD TRANSFUSION. NO S/SX OF ADVERSE REACTION NOTED. WILL CONTINUE TO MONITOR.
[2022-02-17] MEDS: BLOOD SUGAR DIAGNOSTIC 1 EACH STRIP IN SCH ×3 (06:33→17:14)
--- NOTE | 2022-02-17 07:20 | NUR ---
RN NOTE PT CONTINUE WITH BLOOD TRANSFUSION. NO SIGNS OF ANY REACTION NOTED. VS WNL. AFEBRILE. TOLERATES ROOM AIR, O2 SAT AT 100% NOT IN ANY DISTRESS. NO BM, UNABLE TO GET SAMPLE FOR BLOOD OCCULT, ENDORSED TO AM SHIFT NURSE FOR ZI
--- NOTE | 2022-02-17 08:21 | NUR ---
WOUND CARE CONSULT: PT PRESENTED WITH BLACK FOAM DRESSING TO ABDOMEN WITHOUT WOUND VAC DEVICE ON ADMISSION. ABDOMINAL DRESSING REMOVED AND WOUND CLEANSED WITH NS, SALINE MOISTENED KERLIX APPLIED AND COVERED WITH ABD PADS, SECURED WITH PAPER TAPE. ABDOMINAL WOUND PRESENTS WITH PINK/RED GRANULATION TISSUE, SMALL AMOUNT OF SEROUS/GAINES DRAINAGE WITHOUT ODOR AND SUTURE NOTED TO LOWER PART OF WOUND. SURGICAL CONSULT CALLED TO DR JIMENEZ. PT ALSO NOTED TO HAVE SACRAL/BUTTOCKS SCARRING AND BILATERAL HEEL DEEP TISSUE INJURIES (INTACT), PRESENT ON ADMISSION. DR MENDOZA CALLED FOR DPM CONSULT. RECOMMENDATIONS MADE FOR SKIN PROTECTION, INCLUDING FIRST STEP LOW AIRLOSS MATTRESS. MD IN AGREEMENT WITH PLAN OF CARE.
[2022-02-17] MEDS: PIPERACILLIN /TAZOBACTAM 3.375 G in IV D5W 100 ML IV SCH ×2 (09:00→17:14)
[2022-02-17] MEDS ORDERED: PANTOPRAZOLE 40 MG VIAL IV SCH (09:00)
[2022-02-17 09:49] LABS: EOSINOPHILS % (AUTO) 0.9 % (0.0-6.0); HEMATOCRIT 27 % (33-45); LYMPHOCYTES # (AUTO) 3.6 K/uL (0.8-4.8); LYMPHOCYTES % (AUTO) 15.9 % (20.0-44.0); MEAN CORPUSCULAR HGB CONC 30 g/dl (31.0-36.0); MEAN CORPUSCULAR VOLUME 78 fL (82-100); MONOCYTES # (AUTO) 1.9 K/uL (0.1-1.30); MONOCYTES % (AUTO) 8.2 % (2.0-12.0); NEUTROPHILS # (AUTO) 17.1 K/uL (1.8-8.9); PLATELET COUNT (AUTO) 93 K/uL (150-450); RED BLOOD CELL COUNT(AUTO) 3.42 MIL/uL (4.0-5.2); WHITE BLOOD COUNT (AUTO) 22.8 K/uL (4.3-11.0)
[2022-02-17 10:40] LABS: CALCIUM, SERUM 9.8 mg/dL (8.5-10.1); CREATININE 1.3 mg/dL (0.6-1.3); MAGNESIUM 2.3 mg/dL (1.8-2.4); PHOSPHORUS 4.1 mg/dL (2.5-4.9); POTASSIUM 4.9 mmol/L (3.5-5.1)
--- NOTE | 2022-02-17 11:18 | NUR ---
WOUND CARE: RECEIVED ORDER FROM SURGICAL TEAM OF DR JIMENEZ TO START WOUND VAC FOR ABDOMINAL WOUND. SKIN PREP AND VAC DRAPE APPLIED TO PERIWOUND AREAS, WHITE FOAM APPLIED TO SUTURE, THEN GRANUFOAM APPLIED. VAC AT 125mmHg CONTINUOUS SETTING. PT TOLERATED WELL. PLAN NEXT DRESSING CHANGE FOR TUESDAY. DISCUSSED WITH NURSING STAFF. MD IN AGREEMENT WITH PLAN OF CARE.
--- NOTE | 2022-02-17 11:35 | NUR ---
RN NOT WOUND VAC FOR ABD WOUND ORDERED BY ROSIE FOSTER AND PLACED BY TRINA GRAPE PICKER.
--- NOTE | 2022-02-17 12:05 | NUR ---
RN NOTE CRITICAL LAB VALUE OF TROPONIN 166 RECEIVED. DNP CHIRINOS CONTACTED.
--- NOTE | 2022-02-17 13:50 | NUR ---
RN NOTE PUREWICK PLACED PER TRINA SECURE SOFTWARE ASSESSOR REQUEST.
[2022-02-17 14:21] LABS: BAND % (MANUAL) 10 % (0.0-5.0); LYMPHOCYTES % (MANUAL) 16 % (16-48); MONOCYTES % (MANUAL) 6 % (0-11.0); NEUTROPHILS % (MANUAL) 68 (42-76)
[2022-02-17] MEDS ORDERED: MEROPENEM 500 MG in IV NS 0.9% 50 ML IV SCH (21:00)
[2022-02-17] MEDS: MEROPENEM 1 G in IV NS 0.9% 100 ML IV SCH (21:31)
[2022-02-17] MEDS: VANCOMYCIN 1.25 GM in IV D5W 250 ML IV SCH (22:02)
[2022-02-18] VITALS: BP 118/78
[2022-02-18] MEDS: BLOOD SUGAR DIAGNOSTIC 1 EACH STRIP IN SCH ×5 (00:10→23:12)
[2022-02-18 04:00] VITALS: BP 120/70
--- NOTE | 2022-02-18 06:23 | NUR ---
RN NOTE 3.5 SECONDS VTACH. PATIENT REPORTS NO CHEST PAIN. BP 133/93 HR 89 O2 SAT 99%. IN CLASS SPECIAL EDUCATION TEACHER BRANDO MCGINNIS INFORMED.
[2022-02-18 06:41] LABS: THYROID STIMULATING HORMONE 1.115 uIU/mL (0.358-3.74)
--- NOTE | 2022-02-18 06:50 | NUR ---
RN CLOSING NOTE PATIENT RESTING IN BED. OPENS EYES, DELAYED SPEECH. APHASIC. SINUS RHTYHM ON THE MONITOR. HAD 3.5 SECOND VTACH, VSS. NO C/O CP. Ansley METAL PAINTER INFORMED. NPO, BLOOD GLUCOSE MONITORED Q6. ON d51/2NS@75. PENDING ECHO AND REMOVAL OF PICC LINE. UNABLE TO PLACE PERIPHERAL BEFORE REMOVAL AND CULTURE OF TIPS OF PICC LINE. WILL ENDORSE TO ONCOMING SHIFT.
--- NOTE | 2022-02-18 07:30 | NUR ---
PLATE TAKE OUT WORKER AM NOTE PATIENT IN BED, OPENS EYES, DELAYED SPEECH/RESPONSE. APHASIC. ON ROOM AIR O2 SAT 96%. NO DISTRESS, RESPIRATION UNLABORED, SR 90 ON MONITOR. NO SIGNS OF PAIN. IV ACCESS SANDOR PICC LINE AND LEFT UPPER ARM PICC LINE IN PLACE, TO BE REMOVED AND CATH TIP CULTURE ONCE MIDLINE DONE. IVF D5 1/2 NS AT 75 ML/HR. SEE NURSING FLOWSHEET FOR SKIN ISSUES. PENDING ECHO AND REMOVAL OF PICC LINE. SAFETY MEASURES IN PLACE. CALL LIGHT WITHIN REACH. WILL ENDORSE TO ONCOMING SHIFT.
[2022-02-18 08:00] VITALS: BP 118/71
[2022-02-18 08:01] LABS: ALBUMIN 1.5 g/dL (3.4-5.0); BILIRUBIN,TOTAL 0.5 mg/dL (0.2-1.0); CALCIUM, SERUM 10.2 mg/dL (8.5-10.1); CREATININE 1.1 mg/dL (0.6-1.3); MAGNESIUM 2.1 mg/dL (1.8-2.4); POTASSIUM 4.3 mmol/L (3.5-5.1); TOTAL PROTEIN, SERUM 6.8 g/dL (6.4-8.2)
[2022-02-18 08:13] LABS: BASOPHILS # (AUTO) 0.1 K/uL (0.0-0.2); BASOPHILS % (AUTO) 0.4 % (0.0-2.0); EOSINOPHILS % (AUTO) 0.8 % (0.0-6.0); HEMATOCRIT 27 % (33-45); HEMOGLOBIN 7.9 g/dL (11.5-14.8); LYMPHOCYTES # (AUTO) 3.3 K/uL (0.8-4.8); LYMPHOCYTES % (AUTO) 14.1 % (20.0-44.0); MEAN CORPUSCULAR HGB CONC 30 g/dl (31.0-36.0); MEAN CORPUSCULAR VOLUME 79 fL (82-100); MONOCYTES # (AUTO) 1.2 K/uL (0.1-1.30); MONOCYTES % (AUTO) 5.2 % (2.0-12.0); NEUTROPHILS # (AUTO) 18.5 K/uL (1.8-8.9); NEUTROPHILS % (AUTO) 79.5 % (43.0-81.0); PLATELET COUNT (AUTO) 117 K/uL (150-450); RED BLOOD CELL COUNT(AUTO) 3.37 MIL/uL (4.0-5.2); WHITE BLOOD COUNT (AUTO) 23.3 K/uL (4.3-11.0)
[2022-02-18 08:41] LABS: OCCULT BLOOD STOOL NEGATIVE (NEGATIVE)
[2022-02-18] MEDS: PANTOPRAZOLE 40 MG VIAL IV SCH ×2 (08:48→20:54)
[2022-02-18] MEDS: MEROPENEM 1 G in IV NS 0.9% 100 ML IV SCH ×2 (08:48→20:52)
--- NOTE | 2022-02-18 09:30 | NUR ---
RN NOTES DUE MEDS
--- NOTE | 2022-02-18 10:06 | NUR ---
RN NOTES DR. NAIDU NOTIFIED, PT HAD 12 SEC V TACH NEW ORDER RECEIVED AMIO DOLUS AND DRIP FOR 24 HRS.
[2022-02-18] MEDS ORDERED: AMIODARONE 150 MG in IV D5W 100 ML IV ONE (10:30)
--- NOTE | 2022-02-18 10:34 | NUR ---
RN NOTES AMIODARONE 150 MG BOLUS STARTED
[2022-02-18] MEDS: IV D5/0.45 NACL 1,000 ML IV PRN (10:35)
--- NOTE | 2022-02-18 10:45 | NUR ---
RN NOTES CHRISTIE CHIRINOS SIDE STITCHER AT BEDSIDE FOR MIDLINE PLACEMENT, RIGHT AND LEFT PICC LINE REMOVED, CATH TIP SENT TO LABORATORY FOR CULTURE
[2022-02-18 10:46] LABS: BAND % (MANUAL) 11 % (0.0-5.0); LYMPHOCYTES % (MANUAL) 9 % (16-48); NEUTROPHILS % (MANUAL) 72 (42-76)
[2022-02-18 10:47] LABS: EOSINOPHILS % (MANUAL) 2 % (0-4); MONOCYTES % (MANUAL) 6 % (0-11.0)
[2022-02-18] MEDS: AMIODARONE 450 MG in IV D5W 241 ML IV PRN ×2 (10:56→16:38)
--- NOTE | 2022-02-18 10:56 | NUR ---
RN NOTES AMIODARONE 450 MG STARTED 33.33 ML/HR X 6 HOURS [ END AT 1656 ]
[2022-02-18] MEDS: IV D5W 1,000 ML IV PRN (11:50)
[2022-02-18 12:00] VITALS: BP 123/70
--- NOTE | 2022-02-18 15:36 | NUR ---
RN NOTES NGT IN PLACE. FOR CXR WITH GASTRO GRAFFIN
[2022-02-18] MEDS ORDERED: DIATR MEGLU/DIATRIZOATE SODIUM 30 ML BOTTLE (GASTROGRAPHIN) ONE (15:41)
[2022-02-18 16:00] VITALS: BP 144/78
--- NOTE | 2022-02-18 17:00 | NUR ---
RN NOTES AMIODARONE DRIP CHANGED TO 0.5MG/MIN.
--- NOTE | 2022-02-18 18:44 | NUR ---
PHYSICIAN PRACTICE MARKET MANAGER CLOSING NOTE PATIENT IN BED, RESTING, OPENS EYES, DELAYED SPEECH/RESPONSE. APHASIC. ON ROOM AIR O2 SAT >96%. NO DISTRESS, RESPIRATION UNLABORED, SR 90 ON MONITOR. NO SIGNS OF PAIN. IV ACCESS SANDOR MIDLINE AND LEFT UPPER ARM MID LINE IN PLACE, FLUSHES WELL, SITE CLEAR. IVF D5W AT 75 ML/HR. AMIODARONE DRIP AT 0.5 MG/MIN [16.6 ML] PM CARE DONE AND SKIN MANAGEMENT DONE EARLIER. TURNED AND REPOSITIONED Q 2 HOURS. RESTRAINT RIGHT WRIST IN PLACE, RELEASED AND CHECKED FOR CIRCULATION. SAFETY MEASURES IN PLACE. CALL LIGHT WITHIN REACH. ALL NEEDS MET AT THIS TIME. WILL ENDORSE TO NEXT SHIFT FOR ZI.
[2022-02-18 20:00] VITALS: BP 147/87
--- NOTE | 2022-02-18 20:00 | NUR ---
TD RN OPENING NOTE PATIENT IN BED, OPENS EYES, ON ROOM AIR O2 SAT 100%. NO SOB NO DISTRESS NOTED .RESPIRATION UNLABORED, SR 82 PTS ON AMIODRIP AT 0.5 MG ON PROGRESS NO SIGNS OF PAIN. IV ACCESS SANDOR ML LINE AND LEFT UPPER ARM ML LINE IN PLACE, IVF D5 W AT 75CC/HR ON PROGRESS ALL DUE MEDS GIVEN ORDERED NO ASE NOTED . PTS ALSO ON NGT AT RIGHT NOSETRILS INTACT AND PATENT .WITH RIGHT HAND SOFT WRIST RESTRAINT TO PREVENT FROM PULLING INVASIVE TUBING , PTS IS TURNED AND REPOSITION KEPT CLEAN DRY AND COMFORTABLE SAFETY MEASURES IN PLACE. CALL LIGHT WITHIN REACH. WILL CONTINUE TO MONITOR PTS. WITH PUREWICK IN SITU DRAINING WITH YELLOWISH URINE OUTPUT.
[2022-02-18] MEDS: VANCOMYCIN 1.25 GM in IV D5W 250 ML IV SCH (21:36)
[2022-02-18] MEDS: INSULIN REGULAR, HUMAN 100 UNIT/ML 3 ML VIAL SQ PRN (23:11)
--- NOTE | 2022-02-18 23:14 | NUR ---
td rn notes Blood sugar for 12mn is 92mg/dl no coverage given per sliding scale
[2022-02-19] VITALS: BP 150/91
[2022-02-19] MEDS: IV D5W 1,000 ML IV PRN (03:41)
[2022-02-19 04:00] VITALS: BP 141/82
[2022-02-19] MEDS: AMIODARONE 450 MG in IV D5W 241 ML IV PRN (04:18)
[2022-02-19] MEDS: INSULIN REGULAR, HUMAN 100 UNIT/ML 3 ML VIAL SQ PRN (05:50)
[2022-02-19] MEDS: BLOOD SUGAR DIAGNOSTIC 1 EACH STRIP IN SCH ×3 (05:51→17:19)
--- NOTE | 2022-02-19 05:52 | NUR ---
telegraph office telephone clerk notes blood sugar for 6am is 70mg/dl no coverage given per sliding scale.pts on d5w at 75cc/hr
[2022-02-19 06:21] LABS: BASOPHILS % (AUTO) 0.1 % (0.0-2.0); EOSINOPHILS % (AUTO) 1.5 % (0.0-6.0); HEMATOCRIT 27 % (33-45); HEMOGLOBIN 8.5 g/dL (11.5-14.8); LYMPHOCYTES % (AUTO) 22.6 % (20.0-44.0); MEAN CORPUSCULAR HGB CONC 31 g/dl (31.0-36.0); MEAN CORPUSCULAR VOLUME 76 fL (82-100); MONOCYTES # (AUTO) 0.9 K/uL (0.1-1.30); MONOCYTES % (AUTO) 6.8 % (2.0-12.0); NEUTROPHILS # (AUTO) 9.2 K/uL (1.8-8.9); PLATELET COUNT (AUTO) 129 K/uL (150-450); RED BLOOD CELL COUNT(AUTO) 3.58 MIL/uL (4.0-5.2); WHITE BLOOD COUNT (AUTO) 13.3 K/uL (4.3-11.0)
--- NOTE | 2022-02-19 06:24 | NUR ---
MIAN RN NOTES PTS REMAIN IN BED AWAKE CONTINUE ON AMIODARONE DRIP AT 0.5MG/16.6ML/HR TOLERATING WELL .IVF D5W AT 75CC/HR INFUSING WELL .PTS CURRENTLY ON SR WILL ENDORSE TO RN DAY SHIFT FOR CONTINUITY OF CARE.
[2022-02-19 07:27] LABS: CALCIUM, SERUM 9.9 mg/dL (8.5-10.1); CREATININE 1.1 mg/dL (0.6-1.3); MAGNESIUM 1.8 mg/dL (1.8-2.4); PHOSPHORUS 4.3 mg/dL (2.5-4.9); POTASSIUM 3.5 mmol/L (3.5-5.1)
--- NOTE | 2022-02-19 07:54 | NUR ---
RN NOTE RECEIVED PT IN BED, CONT IN ROOM AIR. NOT IN RESPI DISTRESS. NGT IN PLACE WITH CONFIRMED PLACEMENT VIA X RAY. WITH R WRIST SOFT RESTRAINTS ON, NO CIRCULATORY COMPLICATIONS NOTED. IV ACCESS ON SANDOR MIDLINE AND JARETT MIDLINE WITH IVF D5W @75/HR. CONT ON AMIO DRIP RUNNING @ 0.5MG. PT SR ON TELE MONITOR. SAFETY MAINTAINED. WILL CONT TO MONITOR PT.
[2022-02-19 08:00] VITALS: BP 143/78
[2022-02-19] MEDS: PANTOPRAZOLE 40 MG VIAL IV SCH (08:10)
[2022-02-19] MEDS: MEROPENEM 1 G in IV NS 0.9% 100 ML IV SCH ×2 (08:11→20:17)
--- NOTE | 2022-02-19 10:25 | NUR ---
WOUND CARE FOLLOW UP: PT SEEN FOR WOUND VAC DRESSING CHANGE TO ABDOMEN. SKIN PREP AND VAC DRAPE APPLIED TO PERIWOUND AREAS, GRANUFOAM (2 PIECES TO WOUND). VAC AT 125mmHg CONTINUOUS SETTING. CANISTER HAS ONLY 75cc GAINES/SEROUS DRAINAGE. PT TOLERATED WELL.
[2022-02-19 12:00] VITALS: BP 143/90
--- NOTE | 2022-02-19 12:15 | NUR ---
RN NOTE AMIO DRIP 0.5 D/C. PT SR WITH HR OF 74. WILL CONT TO MONITOR.
[2022-02-19] MEDS: PROSOURCE / PROSTAT (PYXIS) 30 ML UDC GT SCH ×2 (12:47→17:19)
[2022-02-19] MEDS ORDERED: GLUCERNA 1.2 1,000 ML BOTTLE NG PRN (13:30)
[2022-02-19] MEDS ORDERED: BISACODYL SUPP (10 MG) 10 MG/SUPP.RECT SUPP.RECT RC PRN (15:30)
[2022-02-19] MEDS: GLUCERNA 1.2 1,000 ML BOTTLE NG PRN (15:45)
[2022-02-19 16:00] VITALS: BP 143/90
[2022-02-19] MEDS: CHLORHEXIDINE GLUCONATE 15 ML UDC MM SCH (17:19)
--- NOTE | 2022-02-19 18:43 | NUR ---
RN NOTE RECEIVED PT IN BED, CONT IN ROOM AIR. NOT IN RESPI DISTRESS. NGT IN PLACE WITH CONFIRMED PLACEMENT VIA X RAY. WITH R WRIST SOFT RESTRAINTS ON, NO CIRCULATORY COMPLICATIONS NOTED. IV ACCESS ON SANDOR MIDLINE AND JARETT MIDLINE NO IVF.S/P AMIO DRIP, TOLERATED WELL.. PT SR ON TELE MONITOR. DUE MEDICATIONS GIVEN, AM/PM CARE DONE. SAFETY MAINTAINED. WILL CONT TO MONITOR PT.
[2022-02-19 20:00] VITALS: BP 145/90
--- NOTE | 2022-02-19 20:00 | NUR ---
TD RN OPENING NOTE PATIENT IN BED, OPENS EYES, ON ROOM AIR O2 SAT 100%. NO SOB NO DISTRESS NOTED .RESPIRATION UNLABORED, SR 82 NO SIGNS OF PAIN. IV ACCESS SANDOR ML LINE AND LEFT UPPER ARM ML LINE IN PLACE, ON PROGRESS ALL DUE MEDS GIVEN ORDERED NO ASE NOTED . PTS ALSO ON NGT AT RIGHT NOSETRILS INTACT AND PATENT ON NGT FEEDING GLUCERNA 1.2 AT 70CC/HR TOLERATING WELL .WITH RIGHT HAND SOFT WRIST RESTRAINT TO PREVENT FROM PULLING INVASIVE TUBING , PTS IS TURNED AND REPOSITION KEPT CLEAN DRY AND COMFORTABLE SAFETY MEASURES IN PLACE. CALL LIGHT WITHIN REACH. WILL CONTINUE TO MONITOR PTS.
[2022-02-19] MEDS: VANCOMYCIN 1.25 GM in IV D5W 250 ML IV SCH (20:40)
[2022-02-19] MEDS: PANTOPRAZOLE 40 MG/PACK PACK GT SCH (20:48)
[2022-02-19] MEDS: LEVETIRACETAM SOL (5 ML) 100 MG/ML UDC GT SCH (20:48)
[2022-02-20] VITALS: BP 136/77
[2022-02-20] MEDS: INSULIN REGULAR, HUMAN 100 UNIT/ML 3 ML VIAL SQ PRN ×3 (00:07→23:52)
[2022-02-20] MEDS: BLOOD SUGAR DIAGNOSTIC 1 EACH STRIP IN SCH ×5 (00:08→23:52)
--- NOTE | 2022-02-20 00:10 | NUR ---
Dilia rn notes Blood sugar for 12mn is 76mg/di no coverage given per sliding scale pts on gt feeding
[2022-02-20 04:00] VITALS: BP 126/83
--- NOTE | 2022-02-20 05:37 | NUR ---
ayesha rn notes Blood sugar for 6am is 74mg/dl no coverage given per sliding scale pts on ngt feeding .
--- NOTE | 2022-02-20 06:19 | NUR ---
MIAN RN NOTES PTS REMAIN IN BED AWAKE REMAINS ON MIAN STATUS .NO SOB NO DISTRESS NOTED V/S STABLE REMAINS ON SR 98 SATING 100% OMN ROOM AIR. .ON FLEXESEAL INTACT D/T 2 EPISODE OF WATERY STOOL NGT FEEDING OF GLUCERNA1.2 AT 70CC/HR HOB ELEVATED AT ALL TIMES REPOSITION PTS Q2 HRS AND PRN WILL ENDORSE TO RN DAY SHIFT FOR CONTINUITY OF CARE.
--- NOTE | 2022-02-20 07:56 | NUR ---
RN NOTE RECEIVED PT IN BED, CONT IN ROOM AIR. NOT IN RESPI DISTRESS. NGT IN PLACE WITH FEEDING GLUCERNA 1.2 @70/HR. WITH R WRIST SOFT RESTRAINTS ON, NO CIRCULATORY COMPLICATIONS NOTED. IV ACCESS ON SANDOR MIDLINE AND JARETT MIDLINE. PT SR ON TELE MONITOR. SAFETY MAINTAINED. WILL CONT TO MONITOR PT.
[2022-02-20 08:00] VITALS: BP 112/68
[2022-02-20] MEDS: MEROPENEM 1 G in IV NS 0.9% 100 ML IV SCH ×2 (08:45→20:23)
[2022-02-20] MEDS: PANTOPRAZOLE 40 MG/PACK PACK GT SCH ×2 (08:46→20:23)
[2022-02-20] MEDS: LEVETIRACETAM SOL (5 ML) 100 MG/ML UDC GT SCH ×2 (08:46→20:23)
[2022-02-20] MEDS: CHLORHEXIDINE GLUCONATE 15 ML UDC MM SCH ×2 (08:46→16:55)
[2022-02-20] MEDS: ENOXAPARIN SODIUM 40 MG/0.4 ML DISP.SYRIN SQ SCH (08:47)
[2022-02-20] MEDS: AMIODARONE HCL 200 MG TABLET GT SCH ×3 (10:22→16:56)
[2022-02-20] MEDS: PROSOURCE / PROSTAT (PYXIS) 30 ML UDC GT SCH ×2 (10:22→16:55)
[2022-02-20 10:40] LABS: BASOPHILS % (AUTO) 0.1 % (0.0-2.0); EOSINOPHILS % (AUTO) 1.3 % (0.0-6.0); HEMATOCRIT 26 % (33-45); HEMOGLOBIN 8.3 g/dL (11.5-14.8); LYMPHOCYTES # (AUTO) 1.7 K/uL (0.8-4.8); LYMPHOCYTES % (AUTO) 13.1 % (20.0-44.0); MEAN CORPUSCULAR HGB CONC 32 g/dl (31.0-36.0); MEAN CORPUSCULAR VOLUME 75 fL (82-100); MONOCYTES # (AUTO) 0.7 K/uL (0.1-1.30); MONOCYTES % (AUTO) 5.4 % (2.0-12.0); NEUTROPHILS # (AUTO) 10.4 K/uL (1.8-8.9); NEUTROPHILS % (AUTO) 80.1 % (43.0-81.0); PLATELET COUNT (AUTO) 190 K/uL (150-450); RED BLOOD CELL COUNT(AUTO) 3.51 MIL/uL (4.0-5.2); WHITE BLOOD COUNT (AUTO) 12.9 K/uL (4.3-11.0)
[2022-02-20 11:08] LABS: CALCIUM, SERUM 9.6 mg/dL (8.5-10.1); POTASSIUM 2.9 mmol/L (3.5-5.1)
[2022-02-20 12:00] VITALS: BP 122/67
[2022-02-20] MEDS ORDERED: POTASSIUM CHLORIDE 20 MEQ POWDER PACKET GT ONE (12:00)
[2022-02-20 13:49] LABS: LYMPHOCYTES % (MANUAL) 11 % (16-48); MONOCYTES % (MANUAL) 2 % (0-11.0); NEUTROPHILS % (MANUAL) 87 (42-76)
[2022-02-20 16:00] VITALS: BP 129/77
[2022-02-20] MEDS: GLUCERNA 1.2 1,000 ML BOTTLE NG PRN (18:12)
--- NOTE | 2022-02-20 19:15 | NUR ---
RN OPENING NOTE RECEIVED PATIENT IN BED AWAKE, NON VERBAL, ON RA, TOLERATING WELL, NO S/S OF ACUTE DISTRESS, SATURATION , TELE MONITOR READING SR HR 82.IV ACCESS SANDOR & JARETT ML, INTACT AND PATENT,NG TUBE PRESENT RUNNING GLUCERNA @50ML/HR, NO RESIDUAL NOTED. PT HAS A PUREWICK SUCTIONING CLEAR YELLOW URINE. FLEXISEAL IS DRAINING BROWN LOOSE STOOL.PT HAS A WOUND VAC ON ABDOMINAL. ALL SAFETY MEASURES IN PLACE, BED ALARM ON, BED IN LOW LOCK POSITION, CALL LIGHT AND TABLE WITHIN EASY REACH, SIDE RAILS UP X2. WILL CONTINUE TO MONITOR THROUGHOUT SHIFT.
[2022-02-20 20:00] VITALS: BP 151/88
[2022-02-21] VITALS: BP 140/76
[2022-02-21 04:00] VITALS: BP 118/94
--- NOTE | 2022-02-21 05:50 | NUR ---
RN NOTE NGT GOT PULLED OUT MD AWARE, ORDER FOR STAT CHEST X RAY FOR REPLACEMENT PLACED.
[2022-02-21 06:37] LABS: BASOPHILS % (AUTO) 0.1 % (0.0-2.0); EOSINOPHILS % (AUTO) 1.3 % (0.0-6.0); HEMATOCRIT 28 % (33-45); HEMOGLOBIN 8.7 g/dL (11.5-14.8); LYMPHOCYTES # (AUTO) 3.2 K/uL (0.8-4.8); LYMPHOCYTES % (AUTO) 26.7 % (20.0-44.0); MEAN CORPUSCULAR HGB CONC 31 g/dl (31.0-36.0); MEAN CORPUSCULAR VOLUME 76 fL (82-100); MONOCYTES # (AUTO) 0.9 K/uL (0.1-1.30); MONOCYTES % (AUTO) 7.5 % (2.0-12.0); NEUTROPHILS # (AUTO) 7.7 K/uL (1.8-8.9); NEUTROPHILS % (AUTO) 64.4 % (43.0-81.0); PLATELET COUNT (AUTO) 242 K/uL (150-450); WHITE BLOOD COUNT (AUTO) 11.9 K/uL (4.3-11.0)
[2022-02-21] MEDS: BLOOD SUGAR DIAGNOSTIC 1 EACH STRIP IN SCH ×4 (06:50→23:25)
[2022-02-21 07:01] LABS: CALCIUM, SERUM 9.8 mg/dL (8.5-10.1); MAGNESIUM 1.7 mg/dL (1.8-2.4); POTASSIUM 3.4 mmol/L (3.5-5.1)
--- NOTE | 2022-02-21 07:27 | NUR ---
RN CLOSING NOTE PATIENT IN BED AWAKE, NON VERBAL, ON RA, TOLERATING WELL, NO S/S OF ACUTE DISTRESS, SATURATION , TELE MONITOR READING SR HR 82.IV ACCESS SANDOR & JARETT ML, INTACT AND PATENT,NG TUBE IN PLACE WAITING STAT CHEST RAY FOR PLACEMENT. FLEXISEAL IS DRAINING BROWN LOOSE STOOL.PT HAS A WOUND VAC ON ABDOMINAL. ALL SAFETY MEASURES IN PLACE, BED ALARM ON, BED IN LOW LOCK POSITION, CALL LIGHT AND TABLE WITHIN EASY REACH, SIDE RAILS UP X2. WILL ENDORSE TO MORNING SHIFT FOR ZI.
--- NOTE | 2022-02-21 07:37 | NUR ---
RN OPENING NOTE RECEIVED PATIENT IN BED AWAKE, NON VERBAL, ON RA, TOLERATING WELL, NO S/S OF ACUTE DISTRESS, SATURATION , TELE MONITOR READING SR HR 88. IV ACCESS SANDOR & JARETT ML, INTACT AND PATENT,NG TUBE INTACT, STILL AWAITING XRAY RESULTS, FOLLOW UP XRAY RESULTS PER XRAY THEY WILL MESSAGE TO RADIOLOGIST. PT HAS A WOUND VAC ON ABDOMINAL. ALL SAFETY MEASURES IN PLACE, BED ALARM ON, BED IN LOW LOCK POSITION, CALL LIGHT AND TABLE WITHIN EASY REACH, SIDE RAILS UP X2. WILL CONTINUE PLAN OF CARE.
[2022-02-21 07:48] LABS: PHOSPHORUS 3.9 mg/dL (2.5-4.9)
--- NOTE | 2022-02-21 07:52 | NUR ---
RN NOTES RECHECK BLOOD SUGAR 73MG/DL. NO S/SX OF HYPOGLYCEMIA. WILL CONTINUE PLAN OF CARE
[2022-02-21 08:00] VITALS: BP 132/88
[2022-02-21] MEDS ORDERED: POTASSIUM CHLORIDE 20 MEQ POWDER PACKET GT ONE (08:30)
[2022-02-21] MEDS: Magnesium 1GM/D5W 100ML PREMIX 100 ML IV SCH ×2 (08:47→10:26)
[2022-02-21] MEDS: PROSOURCE / PROSTAT (PYXIS) 30 ML UDC GT SCH ×2 (09:17→16:11)
[2022-02-21] MEDS: CHLORHEXIDINE GLUCONATE 15 ML UDC MM SCH ×2 (09:17→16:11)
[2022-02-21] MEDS: MEROPENEM 1 G in IV NS 0.9% 100 ML IV SCH (09:17)
[2022-02-21] MEDS: AMIODARONE HCL 200 MG TABLET GT SCH ×3 (09:18→16:26)
[2022-02-21] MEDS: LEVETIRACETAM SOL (5 ML) 100 MG/ML UDC GT SCH ×2 (09:20→20:50)
[2022-02-21] MEDS: PANTOPRAZOLE 40 MG/PACK PACK GT SCH ×2 (09:20→20:50)
[2022-02-21] MEDS: ENOXAPARIN SODIUM 40 MG/0.4 ML DISP.SYRIN SQ SCH (09:21)
[2022-02-21] MEDS: GLUCERNA 1.2 1,000 ML BOTTLE NG PRN (09:59)
--- NOTE | 2022-02-21 10:28 | NUR ---
RN NOTES XRAY RESULTS RECEIVED : Nasogastric tube terminates in the stomach., CHECK NGT PLACEMENT VIA AUSCULTATION. NO RESIDUAL NOTED, DUE MEDICATIONS GIVEN, RESTART NGT FEEDING, WILL CONTINUE PLAN OF CARE.
--- NOTE | 2022-02-21 10:50 | NUR ---
MENDY NOTES MYRANDA RAYMUNDO MD ON THE BEDSIDE, INFORMED ABOUT THE GT. Addendum: 02/21/22 at 1204 by DAINEL PIÑA RN CORRECTION: WRONG PATIENT.
[2022-02-21 12:00] VITALS: BP 132/71
--- NOTE | 2022-02-21 12:04 | NUR ---
RN NOTES SUGAR CHECK =95MG/DL, NO INSULIN COVERAGE, WILL CONTINUE PLAN OF CARE.
[2022-02-21] MEDS ORDERED: DOSING PER PHARMACY-AMIKACI IV XX PRN (14:00)
--- NOTE | 2022-02-21 14:51 | NUR ---
RN NOTES RECEIVED CALL FROM PHARMACY NEW ORDER FOR IV ATB, AND ORDER FOR AMIKACIN LEVEL. NOTED WITH ORDER TO COLLECT STOOL FOR C-DIFF, COLLECTED STOOL, SEND TO THE LAB.
[2022-02-21] MEDS ORDERED: AMIKACIN 1,000 MG in IV D5W 100 ML IV SCH (15:00)
[2022-02-21 16:00] VITALS: BP 134/75
--- NOTE | 2022-02-21 17:21 | NUR ---
RN NOTES BLOOD SUGAR CHECK=83MG/DL, NO INSULIN COVERAGE.
--- NOTE | 2022-02-21 18:18 | NUR ---
RELIEF MATE CLOSING NOTE PATIENT IN BED, AWAKE AND ALERT. ON ROOM AIR O2 SAT 96%, NO DISTRESS, RESPIRATION UNLABORED, TELE MONITOR READING SR 93, NO FACIAL GRIMACING NOTED. IV ACCESS SANDOR MIDLINE AND LEFT UPPER ARM MID LINE IN PLACE, FLUSHES WELL, PATENT AND INTACT, DRESSING C/D/I. NGT PATENT AND INTACT, ON GLUCERNA @70ML/HR, TOLERATING WELL, NO RESIDUAL NOTED. NO N/V NOTED, NGT PLACEMENT VERIFIED. TURNED AND REPOSITIONED Q 2 HOURS. RESTRAINT RIGHT WRIST IN PLACE, RELEASED AND CHECKED FOR CIRCULATION. WOUND VAC NOTED INTACT, WOUND VAC DRAINAGE 50CC. FLEXISEAL EMPTIED 500CC WATERY STOOL. SAFETY MEASURES IN PLACE. CALL LIGHT WITHIN REACH. ALL NEEDS MET AT THIS TIME. WILL ENDORSE TO [place] EQUIPMENT OPERATOR NURSE FOR ZI.
[2022-02-21 20:00] VITALS: BP 133/83
--- NOTE | 2022-02-21 20:00 | NUR ---
RN OPENING NOTE PATIENT IN BED, OPENS EYES, ON ROOM AIR O2 SAT 100%. NO SOB NO DISTRESS NOTED .RESPIRATION UNLABORED, SR 82 NO SIGNS OF PAIN. IV ACCESS SANDOR ML LINE AND LEFT UPPER ARM ML LINE IN PLACE, ON PROGRESS ALL DUE MEDS GIVEN ORDERED NO ASE NOTED . PTS ALSO ON NGT AT RIGHT NOSETRILS LORRIE ON [address] INTACT AND PATENT ON NGT FEEDING GLUCERNA 1.2 AT 70CC/HR TOLERATING WELL .WITH RIGHT HAND SOFT WRIST RESTRAINT TO PREVENT FROM PULLING INVASIVE TUBING , PTS IS TURNED AND REPOSITION KEPT CLEAN DRY AND COMFORTABLE SAFETY MEASURES IN PLACE. CALL LIGHT WITHIN REACH. WILL CONTINUE TO MONITOR PTS.
[2022-02-21] MEDS: INSULIN REGULAR, HUMAN 100 UNIT/ML 3 ML VIAL SQ PRN (23:27)
--- NOTE | 2022-02-21 23:27 | NUR ---
senior telecommunications engineer notes blood sugar for 12mn is 87mg/dl no coveraged given pts on gt feeding
[2022-02-22] VITALS: BP 132/77
[2022-02-22 04:00] VITALS: BP 153/90
[2022-02-22] MEDS: MEROPENEM 1 G in IV NS 0.9% 100 ML IV SCH ×3 (04:14→20:13)
[2022-02-22] MEDS ORDERED: MEROPENEM 500 MG in IV NS 0.9% 50 ML IV SCH ×4 (05:00)
[2022-02-22] MEDS: BLOOD SUGAR DIAGNOSTIC 1 EACH STRIP IN SCH ×3 (05:16→17:10)
[2022-02-22] MEDS: INSULIN REGULAR, HUMAN 100 UNIT/ML 3 ML VIAL SQ PRN (05:17)
[2022-02-22] MEDS: GLUCERNA 1.2 1,000 ML BOTTLE NG PRN (05:32)
--- NOTE | 2022-02-22 06:45 | NUR ---
television maintenance worker notes Pts remain in bed non verbal on r/a sating 100% no sob no distress noted , pts remain on ngt feeding well tolerated will by pts no sob no distress noted .pts will endorse to rn day shift for continuity of care.
[2022-02-22 06:56] LABS: CALCIUM, SERUM 9.7 mg/dL (8.5-10.1); POTASSIUM 3.6 mmol/L (3.5-5.1)
--- NOTE | 2022-02-22 07:32 | NUR ---
RN OPENING NOTE RECEIVED PATIENT IN BED AWAKE, ALERT AND RESPONSIVE, ON RA TOLERATING WELL, NO S/S OF ACUTE DISTRESS, SATURATION , TELE MONITOR READING SR HR 90-95. IV ACCESS SANDOR & JARETT ML, INTACT. NG TUBE PATENT AND INTACT WITH GLUCERNA RUNNING, TOLERATING WELL. NO N/V/D NOTED. PT HAS A WOUND VAC ON ABDOMINAL. BILATERAL HEEL WOUND DRESSING C/D/I. CONTACT PRECAUTION CONTINUED WHILE AWAITING C-DIFF RESULTS. ALL SAFETY MEASURES IN PLACE, BED ALARM ON, BED IN LOW LOCK POSITION, CALL LIGHT AND TABLE WITHIN EASY REACH, SIDE RAILS UP X2. WILL CONTINUE PLAN OF CARE. Addendum: 02/22/22 at 0739 by DANIEL PIÑA RN RIGHT WRIST RESTRAINT,NOTED, SKIN CHECK. WILL CONTINUE PLAN OF CARE.
[2022-02-22] MEDS: PANTOPRAZOLE 40 MG/PACK PACK GT SCH ×2 (08:44→20:49)
[2022-02-22] MEDS: PROSOURCE / PROSTAT (PYXIS) 30 ML UDC GT SCH ×2 (08:44→16:14)
[2022-02-22] MEDS: CHLORHEXIDINE GLUCONATE 15 ML UDC MM SCH ×2 (08:44→16:14)
[2022-02-22] MEDS: AMIODARONE HCL 200 MG TABLET GT SCH ×3 (08:45→16:14)
[2022-02-22] MEDS: LEVETIRACETAM SOL (5 ML) 100 MG/ML UDC GT SCH ×2 (08:50→20:49)
[2022-02-22] MEDS: DAKINS QUARTER STRENGTH (0.125%) 480 ML BOTTLE TOP SCH (09:00)
--- NOTE | 2022-02-22 09:30 | NUR ---
RN NOTES KEO CHIRINOS TELEGRAPH EQUIPMENT MAINTAINER AT THE BEDSIDE, INFORMED PATIENT COUGHING AND SODIUM LEVEL OF 148, NO NEW ORDER AT THIS MOMENT. WILL CONTINUE PLAN OF CARE.
--- NOTE | 2022-02-22 09:34 | NUR ---
WOUND CARE: PT SEEN FOR ABDOMINAL WOUND DRESSING CHANGE AND DRAINAGE IN VAC CANISTER NOTED TO BE CLOUDY GAINES COLOR. ABDOMINAL WOUND HAS RED/PINK GRANULATION TISSUE, NO UNDERMINING NOTED AND SUTURE NOTED. MEASUREMENT IS 5CM X 22CM X 0.2CM. NO ODOR NOTED. DISCUSSED WITH SURGICAL TEAM AND WOUND VAC DISCONTINUED FOR NOW. NEW ORDERS RECEIVED FOR WOUND CARE AND DISCUSSED WITH NURSING STAFF. MD IN AGREEMENT WITH PLAN OF CARE.
[2022-02-22] MEDS: ENOXAPARIN SODIUM 40 MG/0.4 ML DISP.SYRIN SQ SCH (10:21)
[2022-02-22 11:00] VITALS: BP 147/77
[2022-02-22 12:00] VITALS: BP 155/74
[2022-02-22 16:00] VITALS: BP 149/79
--- NOTE | 2022-02-22 17:35 | NUR ---
RN NOTES BLOOD SUGAR CHECK 88MG/DL, NO INSULIN COVERAGE NOTED. WILL CONTINUE PLAN OF CARE.
--- NOTE | 2022-02-22 17:52 | NUR ---
RN NOTES NOTED BP 189/80 HR 65, ROUTINE ATENOLOL GIVEN. RECHECK BP= 179/79, HR 65, DENIES CHEST PAIN,NO /CO OF HEADACHE, INFORMED MYRANDA RAYMUNDO NP, WITH NEW ORDER CLONIDINE X 1 NOW, NOTED AND CARRIED OUT. MIDLINE NURSE UNABLE TO PUT MIDLINE, INFORMED MYRANDA RAYMUNDO NP, PER MYRANDA CASAS OK TO GO HOME WITH PIV SALINE LOCK, WILL CONTINUE PLAN OF CARE. Addendum: 02/22/22 at 1812 by DANIEL PIÑA RN WRONG PATIENT.
--- NOTE | 2022-02-22 18:13 | NUR ---
CARE PROVIDER CLOSING NOTE PATIENT IN BED, AWAKE AND ALERT. ON ROOM AIR, NO DISTRESS, RESPIRATION UNLABORED, TELE MONITOR READING SR 98, NO FACIAL GRIMACING NOTED. IV ACCESS SANDOR MIDLINE AND LEFT UPPER ARM MID LINE IN PLACE, FLUSHES WELL, PATENT AND INTACT, DRESSING C/D/I. NGT PATENT AND INTACT, ON GLUCERNA @70ML/HR, TOLERATING WELL, NO RESIDUAL NOTED. NO N/V NOTED, NGT PLACEMENT VERIFIED. TURNED AND REPOSITIONED Q 2 HOURS. RESTRAINT RIGHT WRIST IN PLACE, RELEASED AND CHECKED FOR CIRCULATION. ABDOMINAL WOUND DRESSING NOTED C/D/I NOTED. FLEXISEAL EMPTIED 400CC WATERY STOOL. CONTACT PRECAUTION CONTINUED. SAFETY MEASURES IN PLACE. CALL LIGHT WITHIN REACH. WILL ENDORSE TO DELINQUENT ACCOUNT CLERK NURSE FOR ZI.
--- NOTE | 2022-02-22 18:17 | NUR ---
NOTED ON TELE MONITOR WITH READING SR HR=80-90'S.
--- NOTE | 2022-02-22 19:57 | NUR ---
RN NOTES CALLED PATIENT'S DAUGHTER TIMBO ST. DAUGHTER GIVE CONSENT FOR WOUND DEBRIDEMENT. ENDORSED TO SOIL BIOLOGY TEACHER NURSE.
[2022-02-22 20:00] VITALS: BP 137/83
--- NOTE | 2022-02-22 23:02 | NUR ---
PHOTOGRAPHER FINISH OPENING NOTE PT RECEIVED IN BED, AWAKE, NON-VERBAL, APPEARS RESTLESS. PT ON RA WITH CURRENT O2SAT OF 97%; NOTED TO HAVE PRODUCTIVE COUGH; NO OTHER S/S OF RESP DISTRESS, NO SOB, NON-LABORED AND EQUAL BREATHING. PT ATTACHED TO EXTERNAL MONITOR SR WITH HR OF 94. PUREWICK IN PLACE, DRAINING CLEAR AND YELLOW URINE. GTD C/D/I WITH GLUCERNA AT 70 ML/HR X 22HRS. PT NOTED TO HAVE RIGHT SOFT WRIST RESTRAINT; NO S/S OF IMPAIRED SKIN OR CIRCULATION. SANDOR AND JARETT MIDLINE INTACT AND PATENT, FLUSHES EASILY WITH NO RESISTANCE; NO MEDS/FLUIDS INFUSING THROUGH. BED IN LOWEST POSITION, CALL LIGHT WITHIN REACH, SIDE RAILS UP X3. WILL CONTINUE TO MONITOR THROUGHOUT THE NIGHT. Addendum: 02/23/22 at 0000 by PRINCESS PATIÑO RN NGT RIGHT NARE AT 65 CM; POSITIVE PLACEMENT CONFIRMED BY AUSCULTATION.
[2022-02-23] VITALS: BP 104/97
[2022-02-23] MEDS: BLOOD SUGAR DIAGNOSTIC 1 EACH STRIP IN SCH ×4 (00:06→17:37)
[2022-02-23] MEDS: GLUCERNA 1.2 1,000 ML BOTTLE NG PRN (01:47)
[2022-02-23] MEDS: MEROPENEM 1 G in IV NS 0.9% 100 ML IV SCH ×3 (03:15→20:31)
[2022-02-23] MEDS: AMIKACIN 1,000 MG in IV D5W 100 ML IV SCH (03:15)
[2022-02-23 04:00] VITALS: BP 134/78
--- NOTE | 2022-02-23 07:30 | NUR ---
FORM SETTER CLOSING NOTE PT REMAINS IN BED, AWAKE, NON-VERBAL. PT ON RA WITH IN THE 90S; NOTED TO HAVE PRODUCTIVE COUGH; NO OTHER S/S OF RESP DISTRESS, NO SOB, NON-LABORED AND EQUAL BREATHING. PT ATTACHED TO EXTERNAL MONITOR SR PUREWICK IN PLACE, DRAINING CLEAR AND YELLOW URINE. NGT RIGHT NARE 65 CM WITH GLUCERNA AT 70 ML/HR X 22HRS. RIGHT SOFT WRIST RESTRAINT REMAINS IN PLACE; NO S/S OF IMPAIRED SKIN OR CIRCULATION; PROVIDED PT WITH RELEASE OF RESTRAINT AND HYGIENE. SANDOR AND JARETT MIDLINE INTACT AND PATENT, FLUSHES EASILY WITH NO RESISTANCE; MEROPENEM AT 33.3 ML/HR. ALL DUE MEDS ADMINISTERED DURING THE NIGHT. BED IN LOWEST POSITION, CALL LIGHT WITHIN REACH, SIDE RAILS UP X3. WILL ENDORSE TO DAYSHIFT NURSE TO CONTINUE CARE.
[2022-02-23 07:56] LABS: BASOPHILS % (AUTO) 0.3 % (0.0-2.0); EOSINOPHILS % (AUTO) 1.7 % (0.0-6.0); HEMATOCRIT 28 % (33-45); HEMOGLOBIN 8.9 g/dL (11.5-14.8); LYMPHOCYTES # (AUTO) 2.2 K/uL (0.8-4.8); LYMPHOCYTES % (AUTO) 23.7 % (20.0-44.0); MEAN CORPUSCULAR HGB CONC 32 g/dl (31.0-36.0); MEAN CORPUSCULAR VOLUME 76 fL (82-100); MONOCYTES # (AUTO) 0.6 K/uL (0.1-1.30); MONOCYTES % (AUTO) 6.4 % (2.0-12.0); NEUTROPHILS # (AUTO) 6.4 K/uL (1.8-8.9); NEUTROPHILS % (AUTO) 67.9 % (43.0-81.0); PLATELET COUNT (AUTO) 317 K/uL (150-450); WHITE BLOOD COUNT (AUTO) 9.5 K/uL (4.3-11.0)
[2022-02-23 08:00] VITALS: BP 138/82
[2022-02-23 08:00] LABS: CREATININE 0.9 mg/dL (0.6-1.3); PHOSPHORUS 3.5 mg/dL (2.5-4.9); POTASSIUM 3.3 mmol/L (3.5-5.1)
[2022-02-23] MEDS: ENOXAPARIN SODIUM 40 MG/0.4 ML DISP.SYRIN SQ SCH (09:22)
[2022-02-23] MEDS: PANTOPRAZOLE 40 MG/PACK PACK GT SCH (09:27)
[2022-02-23] MEDS: PROSOURCE / PROSTAT (PYXIS) 30 ML UDC GT SCH ×2 (09:28→16:33)
[2022-02-23] MEDS: LEVETIRACETAM SOL (5 ML) 100 MG/ML UDC GT SCH (09:28)
[2022-02-23] MEDS: CHLORHEXIDINE GLUCONATE 15 ML UDC MM SCH ×2 (09:28→16:33)
[2022-02-23] MEDS: DAKINS QUARTER STRENGTH (0.125%) 480 ML BOTTLE TOP SCH (09:28)
[2022-02-23] MEDS: AMIODARONE HCL 200 MG TABLET GT SCH ×3 (09:29→16:34)
[2022-02-23] MEDS ORDERED: POTASSIUM CHLORIDE 20 MEQ POWDER PACKET GT ONE (10:00)
[2022-02-23 12:00] VITALS: BP 138/76
[2022-02-23 16:00] VITALS: BP 134/76
--- NOTE | 2022-02-23 17:51 | NUR ---
RN NOTE PT RESTING IN BED, IN ROOM AIR. NOT IN RESPIRATORY DISTRESS. WITH SOFT WRIST RESTRAINTS ON R HAND. NO SS OF CIRCULATORY IMPAIRMENT NOTED. NG IN PLACE WITH FEEDING GLUCERNA 1.2 @ 70CC/HR. ASPIRATION PREC FOLLOWED. DUE MEDS GIVEN, AM/PM CARE DONE. SAFETY MAINTAINED.
--- NOTE | 2022-02-23 18:59 | NUR ---
RN NOTE RECEIVED PT FROM ICU FOR ZI VIA ACLS PROTOCOLS. V/S STABLE. RECEIVED FROM MENDY RODRIGUEZ. PT NOT IN DISTRESS. IN O2 VIA NC @5L.
--- NOTE | 2022-02-23 19:30 | NUR ---
RECEIVED PATIENT AWAKE, RESTLESS, WITH NGT OUT, PER RN SHE JUTS PULLED IT OUT, ON RA WITH OPTIMAL O2 SAT LEVEL, PATIENT JUST CLEANED AND READJUSTED RESTRAINS, NO S/S OF IMPAIRED SKIN OR CIRCULATION AT SITE, SANDOR AND JARETT MIDLINE INTACT AND PATENT, BED IN LOWEST POSITION, CALL LIGHT WITHIN REACH, SIDE RAILS UP X3, WILL CONTINUE TO MONITOR CLOSELY, AND WILL REINSERT THE NGT.
[2022-02-23 20:00] VITALS: BP 140/89
--- NOTE | 2022-02-23 20:53 | NUR ---
RECEIVED REPORT FROM RADIOLOGY REGARDING NGT MALPOSITIONED, NGT REMOVED IMMEDIATELY FROM PATIENT, PATIENT WITH NO S/S OF ANY RESPIRATORY DISTRESS, WILL CONTINUE TO MONITOR CLOSELY AND TRY LATER NGT INSERTION.
[2022-02-24] VITALS: BP 128/93
--- NOTE | 2022-02-24 | NUR ---
0000 NGT inserted to right nostril with no resistance noted. Placement verified by two RNs. Patient tolerated procedure well.
[2022-02-24] MEDS: MORPHINE SULFATE INJ 2 MG/ML DISP.SYRIN IV PRN (00:41)
[2022-02-24] MEDS: BLOOD SUGAR DIAGNOSTIC 1 EACH STRIP IN SCH ×5 (00:45→23:38)
[2022-02-24] MEDS: INSULIN REGULAR, HUMAN 100 UNIT/ML 3 ML VIAL SQ PRN ×3 (00:45→23:38)
--- NOTE | 2022-02-24 00:45 | NUR ---
Blood sugar at this time 78 mg/dL No insulin administered per sliding scale
[2022-02-24] MEDS: LEVETIRACETAM SOL (5 ML) 100 MG/ML UDC GT SCH ×3 (03:24→20:48)
[2022-02-24] MEDS: PANTOPRAZOLE 40 MG/PACK PACK GT SCH ×3 (03:24→20:48)
[2022-02-24] MEDS: GLUCERNA 1.2 1,000 ML BOTTLE NG PRN ×2 (03:26→22:11)
[2022-02-24] MEDS: MEROPENEM 1 G in IV NS 0.9% 100 ML IV SCH ×3 (03:28→20:48)
[2022-02-24 04:00] VITALS: BP 145/82
--- NOTE | 2022-02-24 06:31 | NUR ---
END OF SHIFT, PATIENT AWAKE AT THIS TIME, CONT ON RA NO DISTRESS/SOB NOTED, VS STABLE DURING THE NIGHT, NGT IN SATISFACTORY POSITION, PATIENT ON BILATERAL SOFT RESTRAINS, NO S/S OF IMPAIRED SKIN OR CIRCULATION AT SITE, NO INSULIN ADMINISTERED PER SLIDING SCALE THIS AM BS 79MG/DL, SANDOR AND JARETT MIDLINE INTACT AND PATENT, WOUND TREATMENT DONE, BED IN LOWEST POSITION, CALL LIGHT WITHIN REACH, SIDE RAILS UP X3, WILL ENDORSE CONTINUITY OF CARE TO ONCOMING NURSE.
--- NOTE | 2022-02-24 07:57 | NUR ---
FOOD PHOTOGRAPHER OPENING NOTE PT RECEIVED IN BED, AWAKE, NON-VERBAL, RESTRESS. PATIENT IS CURRENTLY ON RA WITH O2SAT OF 97%; NO S/S OF RESP DISTRESS, NO SOB, NON-LABORED AND EQUAL BREATHING. PT ATTACHED TO EXTERNAL MONITOR SR WITH HR OF 97. PUREWICK IN PLACE, DRAINING CLEAR AND YELLOW URINE. NG TUBE WITH GLUCERNA AT 70 ML/HR X 22HRS. PATIENT NOTED TO HAVE BILATERAL SOFT WRIST RESTRAINT; NO S/S OF IMPAIRED SKIN OR CIRCULATION. SANDOR AND JARETT MIDLINE INTACT AND PATENT, FLUSHES EASILY WITH NO RESISTANCE; NO MEDS/FLUIDS INFUSING THROUGH. BED IN LOWEST POSITION, CALL LIGHT WITHIN REACH, SIDE RAILS UP X3. WILL CONTINUE TO MONITOR THROUGHOUT THE DAY SHIFT.
[2022-02-24 08:00] VITALS: BP 120/75
[2022-02-24] MEDS: CHLORHEXIDINE GLUCONATE 15 ML UDC MM SCH ×2 (08:24→17:06)
[2022-02-24] MEDS: AMIODARONE HCL 200 MG TABLET GT SCH ×3 (08:24→17:06)
[2022-02-24] MEDS: DAKINS QUARTER STRENGTH (0.125%) 480 ML BOTTLE TOP SCH (08:27)
[2022-02-24] MEDS: ENOXAPARIN SODIUM 40 MG/0.4 ML DISP.SYRIN SQ SCH (08:27)
[2022-02-24] MEDS: PROSOURCE / PROSTAT (PYXIS) 30 ML UDC GT SCH ×2 (08:28→17:07)
[2022-02-24 12:19] VITALS: BP 133/75
[2022-02-24 15:19] LABS: CREATININE 0.9 mg/dL (0.6-1.3); POTASSIUM 3.6 mmol/L (3.5-5.1)
[2022-02-24] MEDS: AMIKACIN 1,000 MG in IV D5W 100 ML IV SCH (15:52)
[2022-02-24 16:00] VITALS: BP 137/75
--- NOTE | 2022-02-24 18:57 | NUR ---
YARD FOREMAN CLOSING NOTE PT REMAINS IN BED, AWAKE, NON-VERBAL. PT ON RA WITH IN THE 99 % O2 SATS; NO OTHER S/S OF RESP DISTRESS, NO SOB, NON-LABORED AND EQUAL BREATHING. PT ATTACHED TO EXTERNAL MONITOR SR , PUREWICK IN PLACE, DRAINING CLEAR AND YELLOW URINE. NGT RIGHT NARE 65 CM WITH GLUCERNA AT 70 ML/HR X 22HRS. BILATERAL SOFT WRIST RESTRAINT REMAINS IN PLACE; NO S/S OF IMPAIRED SKIN OR CIRCULATION; PROVIDED PT WITH RELEASE OF RESTRAINT AND HYGIENE. SANDOR AND JARETT MIDLINE INTACT AND PATENT, FLUSHES EASILY WITH NO RESISTANCE; ALL DUE MEDS ADMINISTERED . BED IN LOWEST POSITION, CALL LIGHT WITHIN REACH, SIDE RAILS UP X3. WILL ENDORSE TO FUR IRONER NURSE TO CONTINUE CARE.
--- NOTE | 2022-02-24 19:30 | NUR ---
PT IN BED, AWAKE, NON-VERBAL. PT ON RA, NO OTHER S/S OF RESP DISTRESS, NO SOB, NON-LABORED AND EQUAL BREATHING. PT ATTACHED TO EXTERNAL MONITOR SR , PUREWICK IN PLACE, NGT RIGHT NARE 65 CM WITH GLUCERNA AT 70 ML/HR X 22HRS. BILATERAL SOFT WRIST RESTRAINT IN PLACE; SANDOR AND JARETT MIDLINE NOTED, SAFETY MEASURES IN PLACE, BED LOCKED IN LOWEST POSITION, HOB SLIGHTLY ELEVATED, SIDE RAILS UP X3. BED ALARM ON, CALL LIGHT WITHIN REACH, WILL CONTINUE PLAN OF CARE.
[2022-02-24 20:00] VITALS: BP 130/95
[2022-02-25] VITALS: BP 140/77
[2022-02-25] MEDS: MEROPENEM 1 G in IV NS 0.9% 100 ML IV SCH ×3 (03:12→20:24)
[2022-02-25 04:00] VITALS: BP 130/99
[2022-02-25] MEDS: BLOOD SUGAR DIAGNOSTIC 1 EACH STRIP IN SCH ×3 (05:29→18:44)
[2022-02-25] MEDS: INSULIN REGULAR, HUMAN 100 UNIT/ML 3 ML VIAL SQ PRN (05:30)
[2022-02-25 06:54] LABS: CREATININE 0.8 mg/dL (0.6-1.3); POTASSIUM 3.6 mmol/L (3.5-5.1)
--- NOTE | 2022-02-25 06:58 | NUR ---
PT AWAKE, NON-VERBAL. PT ON RA WITH OS SAT AT 97%; NO RESP DISTRESS, NO SOB, PT HR SHOWING SR ON TELE MONITOR, PUREWICK REPLACED, DRAINING CLEAR AND YELLOW URINE. NGT RIGHT NARE 65 CM WITH GLUCERNA AT 70 ML/HR X 22HRS, OFF AT 1:30AM AND ON AT 3:30AM. BILATERAL SOFT WRIST RESTRAINT REMAINS IN PLACE; NO S/S OF IMPAIRED SKIN OR CIRCULATION; PROVIDED PT WITH RELEASE OF RESTRAINT AND HYGIENE. SANDOR AND JARETT MIDLINE INTACT AND PATENT, FLUSHES EASILY WITH NO RESISTANCE; ALL DUE MEDS ADMINISTERED. SAFETY MEASURES MAINTAINED, HOB SLIGHTLY ELEVATED, BED IN LOWEST POSITION, SIDE RAILS UP X3, BED ALARM ON, CALL LIGHT WITHIN REACH, WILL ENDORSE TO NEXT SHIFT NURSE FOR CONTINUITY OF CARE.
--- NOTE | 2022-02-25 07:25 | NUR ---
PT REMOVED NGT. NEW NGT REINSERTED AND AUSCULTATED. PT TOLERATED PROCEDURE WELL. WILL ASK FOR XRAY ORDER TO CONFIRM PLACEMENT BEFORE STARTING TUBE FEEDING.
[2022-02-25 08:00] VITALS: BP 132/81
--- NOTE | 2022-02-25 08:04 | NUR ---
RN NOTE PT RESTING IN BED, IN ROOM AIR. NOT IN RESPIRATORY DISTRESS. WITH SOFT WRIST RESTRAINTS ON R HAND. NO SS OF CIRCULATORY IMPAIRMENT NOTED. NGT NEWLY PLACED BY SERVICE ENGINE REPAIRER RN, PLACEMENT CONFIRMED VIA AUSCULTATION. WILL AWAIT X RAY RESULTS FOR PLACEMENT. ASPIRATION PREC FOLLOWED. SAFETY MAINTAINED.
[2022-02-25] MEDS: DAKINS QUARTER STRENGTH (0.125%) 480 ML BOTTLE TOP SCH (09:00)
[2022-02-25] MEDS: ENOXAPARIN SODIUM 40 MG/0.4 ML DISP.SYRIN SQ SCH (10:54)
[2022-02-25] MEDS: CHLORHEXIDINE GLUCONATE 15 ML UDC MM SCH ×2 (10:54→16:42)
[2022-02-25] MEDS: PANTOPRAZOLE 40 MG/PACK PACK GT SCH ×2 (10:54→20:24)
[2022-02-25] MEDS: LEVETIRACETAM SOL (5 ML) 100 MG/ML UDC GT SCH ×2 (10:55→20:24)
[2022-02-25] MEDS: PROSOURCE / PROSTAT (PYXIS) 30 ML UDC GT SCH ×2 (10:56→16:41)
[2022-02-25 12:00] VITALS: BP 155/83
[2022-02-25] MEDS ORDERED: VANCOMYCIN 0.75 GM in IV D5W 250 ML IV SCH (15:00)
[2022-02-25 16:00] VITALS: BP 122/66
[2022-02-25] MEDS: AMIODARONE HCL 200 MG TABLET GT SCH (16:42)
--- NOTE | 2022-02-25 19:10 | NUR ---
RN NOTE PT RESTING IN BED, IN ROOM AIR. NOT IN RESPIRATORY DISTRESS. WITH SOFT WRIST RESTRAINTS ON R HAND. NO SS OF CIRCULATORY IMPAIRMENT NOTED. NGT IN PLACE WITH FEEDING GLUCERNA 1.2 @70CC/HR. ASPIRATION PREC FOLLOWED. SAFETY MAINTAINED. DUE MEDICATION GIVEN. AM/PM CARE DONE.
[2022-02-25 20:00] VITALS: BP 139/82
[2022-02-26] VITALS: BP 152/82
[2022-02-26] MEDS: BLOOD SUGAR DIAGNOSTIC 1 EACH STRIP IN SCH ×4 (01:27→17:18)
[2022-02-26] MEDS: INSULIN REGULAR, HUMAN 100 UNIT/ML 3 ML VIAL SQ PRN (01:32)
[2022-02-26] MEDS: AMIKACIN 1,000 MG in IV D5W 100 ML IV SCH (02:06)
[2022-02-26 04:00] VITALS: BP 93/55
[2022-02-26] MEDS: MEROPENEM 1 G in IV NS 0.9% 100 ML IV SCH ×3 (04:18→20:05)
--- NOTE | 2022-02-26 05:36 | NUR ---
PT REMOVED NGT. NEW NGT INSERTED ON RT NARE FR 14. PT TOLERATED PROCEDURE WELL. AUSCULTATED AND WILL ASK FOR XRAY ORDER TO CONFIRM PLACEMENT BEFORE STARTING TUBE FEEDING.
--- NOTE | 2022-02-26 07:00 | NUR ---
PT IN BED, AWAKE, NON-VERBAL. PT ON RA, NO OTHER S/S OF RESP DISTRESS, NO SOB, NON-LABORED AND EQUAL BREATHING. PT ATTACHED TO EXTERNAL MONITOR SR , PUREWICK IN PLACE, NGT RIGHT NARE 65 CM WITH GLUCERNA AT 70 ML/HR X 22HRS. BILATERAL SOFT WRIST RESTRAINT IN PLACE; SANDOR AND JARETT MIDLINE NOTED, SAFETY MEASURES IN PLACE, BED LOCKED IN LOWEST POSITION, HOB SLIGHTLY ELEVATED, SIDE RAILS UP X3. BED ALARM ON, CALL LIGHT WITHIN REACH, WILL ENDORSE TO NEXT NURSE ON DUTY FOR ZI.
[2022-02-26 08:00] VITALS: BP_SYST 154; BP_SYST 95; BP_DIAS 56; BP_DIAS 86
--- NOTE | 2022-02-26 08:00 | NUR ---
RN NOTES RECEIVED PATIENT IN THE BED, CONFUSED, TOTAL CARE, NO ACUTE RESPIRATORY DISTRESS, ROOM AIR,HR-93 ON BEDSIDE MONITOR. ON RA, NO OTHER S/S OF RESP DISTRESS, PUREWICK IN PLACE, NGT INTACT, AFTER CHEST X-RAY, PER X-RAT ADVANCE 5 CM, STARTED NGT FEEDING GLUCERNA AT 70 ML/HR , DUE MEDICATION ADMINISTERED VIA NGT, . BILATERAL SOFT WRIST RESTRAINT INTACT, RECHECKED CIRCULATION Q 2 HR,; SANDOR AND JARETT MIDLINE INTACT INFUSING TKO @10ML/HR. ASSIST TURN AND REPOSTION Q 2 HR, HOB ELEVATED, FOR ASPIRATION PRECAUTION. SIDE RAILS UP X3. WILL FOLLOW UP.
[2022-02-26 08:09] LABS: CREATININE 0.7 mg/dL (0.6-1.3); POTASSIUM 4.2 mmol/L (3.5-5.1)
[2022-02-26] MEDS ORDERED: IV NS 0.9% 250 ML IV PRN (08:30)
[2022-02-26] MEDS: AMIODARONE HCL 200 MG TABLET GT SCH ×3 (09:00→17:17)
--- NOTE | 2022-02-26 10:10 | NUR ---
RN NOTES SEEN PATIENT VIA WOUND PA, CHANGED DRESSING.
[2022-02-26] MEDS: CHLORHEXIDINE GLUCONATE 15 ML UDC MM SCH ×2 (10:46→17:17)
[2022-02-26] MEDS: LEVETIRACETAM SOL (5 ML) 100 MG/ML UDC GT SCH ×2 (10:46→20:34)
[2022-02-26] MEDS: PANTOPRAZOLE 40 MG/PACK PACK GT SCH ×2 (10:47→20:34)
[2022-02-26] MEDS: PROSOURCE / PROSTAT (PYXIS) 30 ML UDC GT SCH ×2 (10:49→17:17)
[2022-02-26] MEDS: DAKINS QUARTER STRENGTH (0.125%) 480 ML BOTTLE TOP SCH (10:49)
[2022-02-26] MEDS: ENOXAPARIN SODIUM 40 MG/0.4 ML DISP.SYRIN SQ SCH (10:53)
[2022-02-26 12:00] VITALS: BP_SYST 131; BP_SYST 154; BP_DIAS 76; BP_DIAS 86
--- NOTE | 2022-02-26 12:00 | NUR ---
RN NOTES BS-83MG/DL, AM ACRE DONE, ASSIST TURN AND REPOSITION Q 2 HR.
[2022-02-26 16:00] VITALS: BP 155/84
--- NOTE | 2022-02-26 18:30 | NUR ---
RN NOTES PM CARE DONE, SUCTION, MOUTH ACRE, PATIENT TOLERATING NGTF WELL, NO RESIDUAL, URINATED X1, BLADDER SCAN DONE OUTPUT SHOWS 250ML. DUE MEDICATION ADMINISTERED, BS-99 MG/DL. SOFT WRIST RESTRAIN BILATERAL RECHECKED FOR CIRCULATION, ASSIST TURN AND REPOSTION Q 2 HR. ENDORSED ONCOMING NURSE FOLLOW PLAN OF CARE.
--- NOTE | 2022-02-26 19:30 | NUR ---
RN NOTES RECEIVED REPORT FROM MORNING RN. PATIENT IN BED. WITH NGT PATENT ON CONTINUOS GT FEEDING GLUCERNA @ 70 ML/HR TOLERATING WELL. WITH JARETT MIDLINE, SANDOR MIDLINE PATENT FLUSHES WELL. ALL SAFETY MEASURES IN PLACE AT PLACE. HOB ELEVATED. CALL LIGHT WITHIN REACH. HOB ELEVATED AT ALL TIMES. WILL CLOSELY MONITOR THE PATIENT
[2022-02-26 20:00] VITALS: BP 143/87
[2022-02-27] VITALS: BP 144/73
[2022-02-27] MEDS: INSULIN REGULAR, HUMAN 100 UNIT/ML 3 ML VIAL SQ PRN ×3 (00:35→17:12)
[2022-02-27] MEDS: BLOOD SUGAR DIAGNOSTIC 1 EACH STRIP IN SCH ×4 (00:36→17:12)
[2022-02-27] MEDS: GLUCERNA 1.2 1,000 ML BOTTLE NG PRN (00:37)
[2022-02-27 04:00] VITALS: BP 135/78
[2022-02-27] MEDS: MEROPENEM 1 G in IV NS 0.9% 100 ML IV SCH ×3 (04:30→20:21)
--- NOTE | 2022-02-27 06:44 | NUR ---
PT IN BED, AWAKE, NON-VERBAL. PT ON RA, NO OTHER S/S OF RESP DISTRESS, NO SOB, NON-LABORED AND EQUAL BREATHING. PT ATTACHED TO EXTERNAL MONITOR SR , NGT RIGHT NARE 65 CM WITH GLUCERNA AT 70 ML/HR X 22HRS. BILATERAL SOFT WRIST RESTRAINT IN PLACE; SANDOR AND JARETT MIDLINE NOTED, SAFETY MEASURES IN PLACE, BED LOCKED IN LOWEST POSITION, HOB SLIGHTLY ELEVATED, SIDE RAILS UP X3. BED ALARM ON, CALL LIGHT WITHIN REACH, WILL ENDORSE TO NEXT NURSE ON DUTY FOR ZI.
--- NOTE | 2022-02-27 07:17 | NUR ---
RN OPENING NOTES RECEIVED PATIENT IN BED. WITH NGT PATENT ON CONTINUOS GT FEEDING GLUCERNA @ 70 ML/HR TOLERATING WELL. WITH JARETT MIDLINE, SANDOR MIDLINE PATENT FLUSHES WELL.NO CURRENT SIGNS OF RESPIRATORY DISTRESS OR PAIN. ALL SAFETY MEASURES IN PLACE AT PLACE. HOB ELEVATED. CALL LIGHT WITHIN REACH. HOB ELEVATED AT ALL TIMES.
[2022-02-27 07:28] LABS: CALCIUM, SERUM 9.8 mg/dL (8.5-10.1); CREATININE 0.8 mg/dL (0.6-1.3); POTASSIUM 3.6 mmol/L (3.5-5.1)
[2022-02-27 08:00] VITALS: BP 103/66
[2022-02-27] MEDS: LEVETIRACETAM SOL (5 ML) 100 MG/ML UDC GT SCH (08:07)
[2022-02-27] MEDS: PANTOPRAZOLE 40 MG/PACK PACK GT SCH (08:07)
[2022-02-27] MEDS: PROSOURCE / PROSTAT (PYXIS) 30 ML UDC GT SCH ×2 (08:07→17:11)
[2022-02-27] MEDS: CHLORHEXIDINE GLUCONATE 15 ML UDC MM SCH ×2 (08:08→17:11)
[2022-02-27] MEDS: AMIODARONE HCL 200 MG TABLET GT SCH ×2 (08:08→17:12)
[2022-02-27] MEDS: ENOXAPARIN SODIUM 40 MG/0.4 ML DISP.SYRIN SQ SCH (08:09)
[2022-02-27] MEDS: DAKINS QUARTER STRENGTH (0.125%) 480 ML BOTTLE TOP SCH (08:09)
--- NOTE | 2022-02-27 10:17 | NUR ---
RN NOTE ATTEMPTED TO CONTACT PATIENTS DAUGHTER. NO RESPONSE WHEN TO VOICEMAIL LEFT MESSAGE
--- NOTE | 2022-02-27 11:01 | NUR ---
RN NOTE SECOND ATTEMPTED TO CONTACT PATIENTS DAUGHTER. NO RESPONSE WHEN TO VOICEMAIL LEFT MESSAGE [phone]
[2022-02-27 12:00] VITALS: BP 148/77
--- NOTE | 2022-02-27 12:10 | NUR ---
RN NOTE RECEIVED CALL FROM DAUGHTER LORE CONSENT FOR PICC LINE WAS GIVEN WITNESSED BY RETAIL CUSTODIAL ASSOCIATE .MIDLINE NURSE INFORMED
[2022-02-27] MEDS: MORPHINE SULFATE INJ 2 MG/ML DISP.SYRIN IV PRN (15:38)
[2022-02-27 16:00] VITALS: BP 146/88
[2022-02-27] MEDS: AMIKACIN 1,000 MG in IV D5W 100 ML IV SCH (16:03)
--- NOTE | 2022-02-27 18:45 | NUR ---
RN CLOSING NOTES PATIENT IN BED. WITH NGT PATENT ON CONTINUOS GT FEEDING GLUCERNA @ 70 ML/HR TOLERATING WELL. WITH JARETT MIDLINE, SANDOR MIDLINE PATENT FLUSHES WELL.NO CURRENT SIGNS OF RESPIRATORY DISTRESS OR PAIN. ALL SAFETY MEASURES IN PLACE AT PLACE. HOB ELEVATED. CALL LIGHT WITHIN REACH. HOB ELEVATED AT ALL TIMES. WILL ENDORSE TO NIGHT NURSE FOR ZI Addendum: 02/27/22 at 1851 by DOROTHEA CAPELLAN RN PATIENT REMOVED NG TUBE RE INSERTION ATTEMPTED MULTIPLE TIMES PATIENT STARTED BLEEDING FROM BOTH NOSTRIL. INFORMED CHARGE NURSE WAS ADVISED TO GIVE PATIENT A BREAK AND HAVE ONCOMING NURSE REATTEMPT. WILL ENDORSE DO NIGHT NURSE
[2022-02-27 20:00] VITALS: BP 143/82
--- NOTE | 2022-02-27 20:12 | NUR ---
RN NOTE PATIENT REMOVED NG TUBE. HAS SCHEDULED KEPPRA 1500MG AND PROTONIX 40MG VIA GTUBE, INFORMED MMI TEACHER NIKKI MCGINNIS, RECEIVED ORDER TO CHANGE TO IV. NOTED AND CARRIED OUT.
[2022-02-27] MEDS: PANTOPRAZOLE 40 MG VIAL IV SCH (21:22)
[2022-02-27] MEDS ORDERED: LEVETIRACETAM (500MG) 500 MG/5 ML VIAL IV ONE ×2 (21:34→21:36)
[2022-02-27] MEDS: LEVETIRACETAM (500MG) 1,500 MG in IV NS 0.9% 100 ML IV SCH (21:41)
[2022-02-28] VITALS: BP 141/87
[2022-02-28] MEDS: BLOOD SUGAR DIAGNOSTIC 1 EACH STRIP IN SCH ×4 (00:53→17:16)
[2022-02-28] MEDS: MEROPENEM 1 G in IV NS 0.9% 100 ML IV SCH ×2 (03:21→11:45)
[2022-02-28 04:00] VITALS: BP 134/84
--- NOTE | 2022-02-28 06:49 | NUR ---
RN CLOSING NOTE PATIENT RESTING IN BED. NONVERBAL. ROOM AIR. NO SOB. NO C/O PAIN. SINUS RHYTHM ON THE MONITOR. BILATERAL SOFT WRIST RESTRAINTS, NO REDNESS, GOOD CAP REFILL. PATIENT BLEEDS WITH NGT INSERTION, PLAN TO BEGIN TPN. BLOOD SUGAR MONITORED.
[2022-02-28 06:54] LABS: CALCIUM, SERUM 10.1 mg/dL (8.5-10.1); CREATININE 0.8 mg/dL (0.6-1.3); POTASSIUM 3.7 mmol/L (3.5-5.1)
--- NOTE | 2022-02-28 07:47 | NUR ---
RN OPENING NOTE PATIENT RECEIVED IN BED, AO x 1, ABLE TO RESPONDS PHYSICAL STIMULI. IN NO ACUTE DISTRESS NOTED. RESPIRATORY EVEN AND UNLABORED IN ROOM AIR. SKIN IS WARM TO TOUCH, KEEP CLEAN/DRY. KEPT ELEVATED HOB FOR ENSURE AIRWAY AND ASPIRATION PRECAUTION, ALSO LOWEST POSITION OF THE BED, S/R UP X 3, BED ALARM IS ON AT ALL THE TIMES. ALL SAFETY PRECAUTION APPLIED. CALL LIGHT WITHIN REACH, WILL CONTINUE TO MONITOR.
[2022-02-28 08:00] VITALS: BP 133/62
[2022-02-28] MEDS: PANTOPRAZOLE 40 MG VIAL IV SCH (09:00)
[2022-02-28] MEDS: PROSOURCE / PROSTAT (PYXIS) 30 ML UDC GT SCH ×2 (09:00→17:00)
[2022-02-28] MEDS: AMIODARONE HCL 200 MG TABLET GT SCH ×2 (09:00→17:00)
[2022-02-28] MEDS: CHLORHEXIDINE GLUCONATE 15 ML UDC MM SCH ×2 (09:00→17:00)
[2022-02-28] MEDS: ENOXAPARIN SODIUM 40 MG/0.4 ML DISP.SYRIN SQ SCH (09:00)
[2022-02-28] MEDS ORDERED: TPN/PPN PER PHARMACY IV PRN (10:00)
--- NOTE | 2022-02-28 10:00 | NUR ---
PATIENT REMOVED NG TUBE, ACCORDING DR. JIANG "NO NEED REINSERT NG TUBE IF PATIENT REMOVED AGAIN". WILL CONTINUE TO MONITOR FOR SAFETY.
[2022-02-28 10:30] LABS: BASOPHILS % (AUTO) 0.5 % (0.0-2.0); EOSINOPHILS % (AUTO) 1.3 % (0.0-6.0); HEMATOCRIT 29 % (33-45); HEMOGLOBIN 8.9 g/dL (11.5-14.8); LYMPHOCYTES # (AUTO) 1.9 K/uL (0.8-4.8); LYMPHOCYTES % (AUTO) 27.1 % (20.0-44.0); MEAN CORPUSCULAR HGB CONC 31 g/dl (31.0-36.0); MEAN CORPUSCULAR VOLUME 78 fL (82-100); MONOCYTES # (AUTO) 0.4 K/uL (0.1-1.30); MONOCYTES % (AUTO) 5.9 % (2.0-12.0); NEUTROPHILS # (AUTO) 4.7 K/uL (1.8-8.9); NEUTROPHILS % (AUTO) 65.2 % (43.0-81.0); PLATELET COUNT (AUTO) 322 K/uL (150-450); RED BLOOD CELL COUNT(AUTO) 3.72 MIL/uL (4.0-5.2); WHITE BLOOD COUNT (AUTO) 7.2 K/uL (4.3-11.0)
[2022-02-28 10:39] LABS: MAGNESIUM 1.8 mg/dL (1.8-2.4); PHOSPHORUS 2.8 mg/dL (2.5-4.9)
[2022-02-28] MEDS: LEVETIRACETAM (500MG) 1,500 MG in IV NS 0.9% 100 ML IV SCH (10:42)
[2022-02-28] MEDS: DAKINS QUARTER STRENGTH (0.125%) 480 ML BOTTLE TOP SCH (10:44)
--- NOTE | 2022-02-28 10:50 | NUR ---
ptient remioved Addendum: 02/28/22 at 1051 by MICAH FELDER RN error
[2022-02-28 10:51] LABS: ALBUMIN 2.3 g/dL (3.4-5.0)
[2022-02-28 10:53] LABS: PREALBUMIN 19.8 MG/DL (18.0-35.7)
--- NOTE | 2022-02-28 14:44 | NUR ---
[facility] AND GIVEN REPORT CHRYSTAL INCLUDE ASSEMBLER TRUCK TRAILER TIME, TPN, ABX IV INFORMATIONS. WILL KEEP REMAIN PICCLINE WITH PATIENT, WOUND PICTURE TAKEN.
[2022-02-28] MEDS ORDERED: TPN BAG #1 IV SCH ×4 (15:00)
--- NOTE | 2022-02-28 18:10 | NUR ---
2 dry cell and battery assembler PICKED UP PATIENT AND GIVEN REPORT. PATIENT IN STABLE CONDITION, IN NO ACUTE DISTRESS OBSERVED. WOUND CARE PROVIDED BEFORE PATIENT LEAVE, AND PICTURE TAKEN.
[2022-03-01] MEDS ORDERED: TPN BAG #2 IV SCH ×4 (07:00)
== END 2022-02-28 18:32 | DRG 981 ==
LOC: ER 22:18 → TELE-TD 02-17 01:12 → TELE1 02-17 09:41 → TELE-TD 02-18 11:08 → TELE1 02-21 12:28 → MEDSG1 02-28 11:15
PROVIDERS: ADMIT Nurse Practitioner Acute Care; ATTEND Internal Medicine
PROC: 30233N1 Transfusion of Nonautologous Red Blood Cells into Peripheral Vein, Percutaneous Approach (ICD-10-PCS; 2022-02-16)
PROC: 05H933Z Insertion of Infusion Device into Right Brachial Vein, Percutaneous Approach (ICD-10-PCS; 2022-02-18)
PROC: 05HA33Z Insertion of Infusion Device into Left Brachial Vein, Percutaneous Approach (ICD-10-PCS; 2022-02-18)
PROC: 0KBL0ZZ Excision of Left Abdomen Muscle, Open Approach (ICD-10-PCS; principal; 2022-02-23)
PROC: 0KBK0ZZ Excision of Right Abdomen Muscle, Open Approach (ICD-10-PCS; 2022-02-23)
PROC: 02HV33Z Insertion of Infusion Device into Superior Vena Cava, Percutaneous Approach (ICD-10-PCS; 2022-02-27)
PROC: B548ZZA Ultrasonography of Superior Vena Cava, Guidance (ICD-10-PCS; 2022-02-27)
DX: T80.211A Bloodstream infection due to central venous catheter, initial encounter (principal); A41.50 Gram-negative sepsis, unspecified; E43 Unspecified severe protein-calorie malnutrition; I21.A1 Myocardial infarction type 2; D68.59 Other primary thrombophilia; G93.40 Encephalopathy, unspecified; I47.1 Supraventricular tachycardia; S31.109A Unspecified open wound of abdominal wall, unspecified quadrant without penetration into peritoneal cavity, initial encounter; Z20.822 Contact with and (suspected) exposure to COVID-19; F03.90 Unspecified dementia, unspecified severity, without behavioral disturbance, psychotic disturbance, mood disturbance, and anxiety; Z86.73 Personal history of transient ischemic attack (TIA), and cerebral infarction without residual deficits; I50.9 Heart failure, unspecified; I11.0 Hypertensive heart disease with heart failure; G40.909 Epilepsy, unspecified, not intractable, without status epilepticus; E78.5 Hyperlipidemia, unspecified; Z87.440 Personal history of urinary (tract) infections; R27.8 Other lack of coordination; F41.9 Anxiety disorder, unspecified; F25.9 Schizoaffective disorder, unspecified; Z79.4 Long term (current) use of insulin; Z79.01 Long term (current) use of anticoagulants; Z79.899 Other long term (current) drug therapy; D64.9 Anemia, unspecified; X58.XXXA Exposure to other specified factors, initial encounter; Y92.9 Unspecified place or not applicable; D69.6 Thrombocytopenia, unspecified; E88.09 Other disorders of plasma-protein metabolism, not elsewhere classified; Z86.14 Personal history of Methicillin resistant Staphylococcus aureus infection; N28.1 Cyst of kidney, acquired; R13.10 Dysphagia, unspecified; Z93.1 Gastrostomy status; E11.9 Type 2 diabetes mellitus without complications; Z74.09 Other reduced mobility; I48.91 Unspecified atrial fibrillation; B96.1 Klebsiella pneumoniae [K. pneumoniae] as the cause of diseases classified elsewhere; Z74.01 Bed confinement status; L89.626 Pressure-induced deep tissue damage of left heel; L89.616 Pressure-induced deep tissue damage of right heel
CPT/HCPCS: 36410; 36415; 36569; 71045-TC; 80048-TC; 80053-TC; 80076-TC; 80150; 80202-TC; 81001; 82040-TC; 82272-TC; 82607-TC; 82728-TC; 82962-TC; 83540-TC; 83605-TC; 83735-TC; 83880; 84100-TC; 84134-TC; 84439-TC; 84443-TC; 84484-TC; 85025-TC; 85730-TC; 86850-TC; 87040-TC; 87070-TC; 87081-TC; 87086-TC; 87186-TC; 93307-TC; A4217; A6253; A6403; C9113; C9803; G0378; J0278; J0282; J1650; J1815; J1953; J2185; J2270; J2543; J3370; J3475; J3490; J7030; J7050; J7060; J7070; P9016; Q9963; Q9967